=== PATIENT | male | born 1955 | race Caucasian/White ===

== ENCOUNTER 2019-11-14 17:08 | Inpatient (IN) | payer OTHER ==
[~2019-11-14] VITALS: Ht 175.3 cm; Wt 86.6 kg
[2019-11-14 17:08] VITALS: BP 131/79
[~2019-11-14 17:08] MED LIST: Mylanta II UD 30ml ORAL ONE; Omnipaque-300 100ml vial INJ PRN
--- NOTE | 2019-11-14 17:08 | NUR ---
ED Nurse Note: Pt brought in by [facility]26 from home due to abd pain with N/V/D since this morning. Noted abd distention with occasional hernia protrusion. Pt states his abdomen has been big for a while. AAO x4, follows commands with non labored breathing. No active vomitng upon arrival.
--- NOTE | 2019-11-14 17:15 | NUR ---
ED Nurse Note: Collected blood then sent to lab.
--- NOTE | 2019-11-14 17:19 | Emergency Room Report ---
History of Present Illness General Chief Complaint: Nausea, Vomiting, and Diarrhea Source: Patient, EMS Present Illness HPI 64 year old history of hypertension history of diabetes history of liver cirrhosis now cured presents with Nausea vomiting generalized abdominal pain that started today achy in nature, no aggravating relieving factors severity is moderate, constant started today patient was brought in by EMS for evaluation no fevers no chills no chest pain or shortness of breath Allergies: Coded Allergies: CHLORPROMAZINE (Unverified Allergy, Unknown, 11/14/19) COVID-19 Screening Contact w/high risk pt: No Recent Travel to affected area: No Experienced COVID-19 symptoms?: No Patient History Past Medical History: see triage record Reviewed Nursing Documentation: PMH: Agreed; PSxH: Agreed Nursing Documentation-PMH Past Medical History: No History, Except For Hx Cardiac Problems: No - h/o stroke and heartattack Hx Hypertension: Yes Hx COPD: Yes Hx Cerebrovascular Accident: Yes Review of Systems All Other Systems: negative except mentioned in HPI Physical Exam Vital Signs Date Time Temp Pulse Resp B/P (MAP) Pulse Ox O2 Delivery O2 Flow Rate FiO2 11/14/19 16:55 97.3 96 16 131/85 (100) 94 Room Air Sp02 EP Interpretation: reviewed, normal General Appearance: well appearing, no apparent distress, alert Head: normocephalic, atraumatic Eyes: bilateral eye PERRL, bilateral eye EOMI ENT: uvula midline, moist mucus membranes Neck: supple, thyroid normal, supple/symm/no masses Respiratory: lungs clear, no respiratory distress, no retraction, no accessory muscle use Cardiovascular #1: normal peripheral pulses, regular rate, rhythm, no edema, no gallop, no murmur Gastrointestinal: non tender, soft, no guarding, no rebound Musculoskeletal: normal inspection Neurologic: alert, oriented x3 Psychiatric: mood/affect normal Skin: no rash, warm/dry Medical Decision Making Diagnostic Impression: Primary Impression: Small bowel obstruction ER Course 64-year-old male presents with acute SBO, NG tube was inserted, differential diagnosis also include diverticulitis, appendicitis, Patient given pain control fluids patient will be admitted to [facility] Patient admitted to Dr. Turcios Laboratory Tests Test 11/14/19 17:15 White Blood Count 9.4 K/UL (4.8-10.8) Red Blood Count 4.77 M/UL (4.70-6.10) Hemoglobin 14.4 G/DL (14.2-18.0) Hematocrit 44.9 % (42.0-52.0) Mean Corpuscular Volume 94 FL (80-99) Mean Corpuscular Hemoglobin 30.1 PG (27.0-31.0) Mean Corpuscular Hemoglobin Concent 32.0 G/DL (32.0-36.0) Red Cell Distribution Width 12.9 % (11.6-14.8) Platelet Count 151 K/UL (150-450) Mean Platelet Volume 11.2 FL (6.5-10.1) H Neutrophils (%) (Auto) 80.1 % (45.0-75.0) H Lymphocytes (%) (Auto) 8.3 % (20.0-45.0) L Monocytes (%) (Auto) 10.7 % (1.0-10.0) H Eosinophils (%) (Auto) 0.1 % (0.0-3.0) Basophils (%) (Auto) 0.7 % (0.0-2.0) Urine Color Pending Urine Appearance Pending Urine pH Pending Urine Specific [place] Pending Urine Protein Pending Urine Glucose (UA) Pending Urine Ketones Pending Urine Blood Pending Urine Nitrite Pending Urine Bilirubin Pending Urine Urobilinogen Pending Urine Leukocyte Esterase Pending Sodium Level 136 MMOL/L (136-145) Potassium Level 3.7 MMOL/L (3.5-5.1) Chloride Level 99 MMOL/L (98-107) Carbon Dioxide Level 28 MMOL/L (21-32) Anion Gap 9 mmol/L (5-15) Blood Urea Nitrogen 21 mg/dL (7-18) H Creatinine 0.7 MG/DL (0.55-1.30) Estimated Glomerular Filtration Rate > 60 mL/min (>60) Glucose Level 114 MG/DL (74-106) H Calcium Level 9.3 MG/DL (8.5-10.1) Total Bilirubin 0.4 MG/DL (0.2-1.0) Aspartate Amino Transferase (AST) 18 U/L (15-37) Alanine Aminotransferase (ALT) 17 U/L (12-78) Alkaline Phosphatase 69 U/L (46-116) Troponin I 0.000 ng/mL (0.000-0.056) Total Protein 7.1 G/DL (6.4-8.2) Albumin 3.7 G/DL (3.4-5.0) Globulin 3.4 g/dL Albumin/Globulin Ratio 1.1 (1.0-2.7) Lipase 26 U/L (73-393) L Other X-Ray Diagnostic Results Other X-Ray Diagnostic Results : X-Ray ordered: KUB # of Views/Limited Vs Complete: 1 View Indication: Pain EP Interpretation: Yes Interpretation: other - NG tube well-seated in the stomach Impression: Other - NG tube well-seated in the stomach Electronically Signed by: Jesús Moncada MD CT/MRI/US Diagnostic Results CT/MRI/US Diagnostic Results : Impression Preliminary Findings Only See Final Report For Complete Findings CT ABDOMEN & PELVIS With Contrast: Prominence of the wall of the distal esophagus may represent esophagitis. Stomach is distended with ingested material, fluid, and gas. Dilated fluid and gas-filled small bowel loops with transition point in the right mid abdomen, concerning for small bowel obstruction. Small amount of ascites. Normal appendix. No hydronephrosis or obstructing stone. Fluid within a right inguinal hernia. Fat within a left inguinal hernia. Atherosclerotic changes of the vasculature. No aortic aneurysm or dissection. Mild prominence of the bladder wall is likely secondary to under distention. Please correlate with urinalysis if concerned for cystitis. Radiologist: Susy Blue M.D. Study ready at 18:36 and initial results transmitted at 18:51 Last Vital Signs Date Time Temp Pulse Resp B/P (MAP) Pulse Ox O2 Delivery O2 Flow Rate FiO2 11/14/19 16:55 97.3 96 16 131/85 (100) 94 Room Air Disposition: ADMITTED INPATIENT Condition: Stable Jesús Moncada MD Nov 14, 2019 17:19
[2019-11-14] MEDS ORDERED: Mylanta II UD 30ml ONE (17:29)
[2019-11-14 17:34] LABS: BASOPHILS % (AUTO) 0.7 % (0.0-2.0); EOSINOPHILS % (AUTO) 0.1 % (0.0-3.0); HEMATOCRIT 44.9 % (42.0-52.0); HEMOGLOBIN 14.4 G/DL (14.2-18.0); LYMPHOCYTES % (AUTO) 8.3 % (20.0-45.0); MEAN CORPUSCULAR VOLUME 94 FL (80-99); MONOCYTES % (AUTO) 10.7 % (1.0-10.0); NEUTROPHILS % (AUTO) 80.1 % (45.0-75.0); PLATELET COUNT 151 K/UL (150-450); RED BLOOD COUNT 4.77 M/UL (4.70-6.10); RED CELL DISTRIBUTION WIDTH 12.9 % (11.6-14.8); WHITE BLOOD COUNT 9.4 K/UL (4.8-10.8)
[2019-11-14 17:55] LABS: ANION GAP 9 mmol/L (5-15); BLOOD UREA NITROGEN 21 mg/dL (7-18); CALCIUM 9.3 MG/DL (8.5-10.1); CARBON DIOXIDE 28 MMOL/L (21-32); CHLORIDE 99 MMOL/L (98-107); CREATININE 0.7 MG/DL (0.55-1.30); POTASSIUM 3.7 MMOL/L (3.5-5.1); SODIUM 136 MMOL/L (136-145)
[2019-11-14 17:59] LABS: ALANINE AMINOTRANSFERASE 17 U/L (12-78); ALBUMIN 3.7 G/DL (3.4-5.0); ALBUMIN/GLOBULIN RATIO 1.1 (1.0-2.7); ALKALINE PHOSPHATASE 69 U/L (46-116); ASPARTATE AMINO TRANSFERASE 18 U/L (15-37); BILIRUBIN,TOTAL 0.4 MG/DL (0.2-1.0)
[2019-11-14] MEDS ORDERED: Omnipaque-300 100ml vial INJ PRN (18:00)
[2019-11-14] MEDS ORDERED: Mylanta II UD 30ml ORAL ONE (18:00)
--- NOTE | 2019-11-14 18:15 | NUR ---
ED Nurse Note: Pt taken to CT via wheelchair in stable condition.
--- NOTE | 2019-11-14 19:11 | NUR ---
HAND-OFF: Report given to Salena LEON.
[2019-11-14 19:15] VITALS: BP 141/71
--- NOTE | 2019-11-14 19:15 | NUR ---
ED Nurse Note: Report received from EDWARD Barajas. Pt is aaox4, no acute distress noted. Will carry out order for NG tube placement. VSS.
--- NOTE | 2019-11-14 19:30 | NUR ---
ED Nurse Note: NG tube placed and Xray obtained to confirm placement and confirmed with ERMD. NG tube placed in R nare and is at 63cm. Low continuous suction inititated. Pt has no complaints of pain and vital signs are stable.
--- NOTE | 2019-11-14 20:00 | NUR ---
ED Nurse Note: Pt is able to able to get out of bed and use bedside commode with assistance. Loose stool noted with bowel movement at this time.
--- NOTE | 2019-11-14 20:18 | Diagnostic Imaging Report ---
Indication: NG tube placement. Abdominal pain. Technique: XRAY Abdomen 1v Comparison: CT of the abdomen and pelvis from earlier the same day Findings: NG tube in the stomach. There is distention of the stomach and distention of multiple small bowel loops consistent with the small bowel obstruction seen on prior CT. Contrast is noted within the renal collecting systems related to prior IV contrast administration. There are degenerative changes in the spine. Impression: Satisfactory positioning of NG tube.
--- NOTE | 2019-11-14 21:00 | NUR ---
ED Nurse Note: Report given to EDWARD Castro.
--- NOTE | 2019-11-14 21:05 | NUR ---
ED Nurse Note: Pt is stable for transport to unit at this time. Pt taken to unit via gurney by tech. Pt NG tube clamped for transport and RN informed of ERMD order to have it on low continuous suction, no complications noted. Pt is aaox4, no acute distress noted. Pt belongings sent with pt. VSS.
[2019-11-14 21:30] VITALS: BP 133/71
[2019-11-14] MEDS ORDERED: DiphenhydrAMINE 25mg Tab ORAL PRN (22:00)
[2019-11-14] MEDS ORDERED: Metoclopramide 10mg/2ml Inj IVP PRN (22:00)
[2019-11-14] MEDS ORDERED: Miralax 17gm pkt ORAL PRN (22:00)
[2019-11-14] MEDS ORDERED: Nitroglycerin Subl 0.4mg tab SL PRN (22:00)
[2019-11-14] MEDS: D5 1/2NS 1,000 ML IV SCH (22:12)
[2019-11-15] VITALS: BP 134/74
[2019-11-15 04:00] VITALS: BP 128/73
[2019-11-15 06:22] LABS: BASOPHILS % (AUTO) 0.5 % (0.0-2.0); EOSINOPHILS % (AUTO) 0.6 % (0.0-3.0); HEMATOCRIT 38.4 % (42.0-52.0); HEMOGLOBIN 13.7 G/DL (14.2-18.0); LYMPHOCYTES % (AUTO) 17.4 % (20.0-45.0); MEAN CORPUSCULAR VOLUME 90 FL (80-99); MONOCYTES % (AUTO) 16.1 % (1.0-10.0); NEUTROPHILS % (AUTO) 65.4 % (45.0-75.0); PLATELET COUNT 124 K/UL (150-450); RED BLOOD COUNT 4.27 M/UL (4.70-6.10); RED CELL DISTRIBUTION WIDTH 11.9 % (11.6-14.8); WHITE BLOOD COUNT 6.7 K/UL (4.8-10.8)
--- NOTE | 2019-11-15 06:28 | NUR ---
NURSE NOTES: PATIENT ALERT, ORIENTED. NPO EXCEPT ICE CHIPS/MEDS. DENIES PAIN. NO S/S DISTRESS NOTED. PATIENT HAS NG TUBE ON LOW INTERMITTENT SUCTIONS ORDERED. SKIN INTACT. HAVING DIARRHEA, STOOL COLLECTED. REVIEWED BELONGINGS, PATIENT SIGNED REFUSAL. CAN REPOSITION SELF. BED IN LOWEST POSITION, CALL LIGHT WITHIN REACH, BED ALARM ON, WILL CONTINUE TO MONITOR. UNABLE TO DO MED RECON PATIENT DOESN'T HAVE HIS MED LIST AND DOES NOT RECALL THEM AND PER PATIENT HE WILL CALL HIS LIVING FACILITY TO GET HIS MED LIST .
[2019-11-15 06:44] LABS: ALANINE AMINOTRANSFERASE 12 U/L (12-78); ALBUMIN 2.9 G/DL (3.4-5.0); ALBUMIN/GLOBULIN RATIO 0.9 (1.0-2.7); ALKALINE PHOSPHATASE 53 U/L (46-116); AMYLASE 13 U/L (25-115); ANION GAP 7 mmol/L (5-15); ASPARTATE AMINO TRANSFERASE 12 U/L (15-37); BILIRUBIN,TOTAL 0.4 MG/DL (0.2-1.0); BLOOD UREA NITROGEN 18 mg/dL (7-18); CALCIUM 8.5 MG/DL (8.5-10.1); CARBON DIOXIDE 28 MMOL/L (21-32); CHLORIDE 104 MMOL/L (98-107); CREATININE 0.7 MG/DL (0.55-1.30); POTASSIUM 3.9 MMOL/L (3.5-5.1); SODIUM 138 MMOL/L (136-145)
--- NOTE | 2019-11-15 06:44 | NUR ---
NURSE NOTES: VITALS STABLE, AFEBRILE. NO NAUSEA/VOMITING. NO FALLS/INJURY.
--- NOTE | 2019-11-15 07:08 | NUR ---
HAND-OFF: Report given to DAVID MICHAELS RN. .
--- NOTE | 2019-11-15 07:39 | NUR ---
NURSE NOTES: received report from EDWARD Smith. patient in bed, A&Ox4. verbally responsive. no respiratory distress noted. no pain at this time. NPO. NG tube with suction. brown drainage noted. IV on RAC20g running d51/2ns@75/hr. IV site intact. US abd will be done this morning. bed in the lowest position and locked. call light within reach. will continue to provide plan of care.
--- NOTE | 2019-11-15 07:59 | NUR ---
CASE MANAGEMENT: INITIAL REVIEW 11/14/2019 64 YO M DIANNE FROM HOME CC: N/V/D PMHx: CVA. HTN. COPD. SI:SBO. T 97.3 HR 96 RR 16 B/P 131/85 SATS 94% ON RA LABS: BUN 21 GLU 114 LIPASE 26 UA: PENDING IS: ZOFRAN IV X2 PEPCID IV X1 NS BOLUS X1 MYLANTA PO X1 PATIENT ADMITTED TO MED/SURG 11/14/2019 @ 2000 DCP: HOME PLAN OF CARE: us abd ngt CONCURRENT REVIEW FOR 11/15/2019 SI: SBO T 97.9 HR 75 RR 18 B/P 128/73 SATS 96% ON RA LABS: GLU 126 AST 12 LIPASE 26 AMYLASE 13 IS:DEXTROSE IV @ 75 ML/HR PROTONIX IV QD MED/SURG PLAN OF CARE: CONTINUE NGT TO LIS Addendum: 11/15/19 at 0933 by Meghan Flores CM INTERQUAL MET
[2019-11-15 08:00] VITALS: BP 123/67
[2019-11-15] MEDS: Heparin 5000 units/ml inj SUBQ SCH ×2 (08:18→21:00)
[2019-11-15] MEDS: Pantoprazole Inj IV SCH (08:18)
[2019-11-15 12:00] VITALS: BP 129/62
[2019-11-15] MEDS: D5 1/2NS 1,000 ML IV SCH (12:26)
--- NOTE | 2019-11-15 13:22 | Consultation ---
History of Present Illness General Date patient seen: Nov 15, 2019 Reason for Hospitalization: Nausea, Vomiting, and Diarrhea Present Illness HPI This is a pleasant 64 year male presented to [facility] ED c/o abdominal pain, nausea, emesis for 1-2 days. states was in care facility when pain began then had nausea and emesis. pain generalized abdominal pain. no fevers. labs as below. CT with possible sbo. surgery called to evaluate. ng tube placed. patient seen and examined. states cannot recall last flatus. had some loose discharge from anus since but unsure if diarrhea. prior abd surgery but unsure what. states it was a long time ago. poor historian Allergies: Coded Allergies: CHLORPROMAZINE (Unverified Allergy, Unknown, 11/14/19) COVID-19 Screening Contact w/high risk pt: No Recent Travel to affected area: No Experienced COVID-19 symptoms?: No Patient History History Provided By: Patient, Medical Record, PMD Healthcare decision maker Resuscitation status Advanced Directive on File Past Medical/Surgical History Past Medical/Surgical History: (1) Small bowel obstruction (2) Nausea, vomiting, and diarrhea Review of Systems Review of Symptoms General ROS: no weight loss or fever Psychological ROS: no depression or mood changes, no memory loss Ophthalmic ROS: no visual changes or eye irritation ENT ROS: no nasal congestion, hearing loss, dizziness Allergy and Immunology ROS: no allergic symptoms or urticaria Hematological and Lymphatic ROS: no swollen glands, unusual bleeding or bruising Endocrine ROS: no polyuria, polydipsia, weight changes, temperature intolerance Respiratory ROS: no cough, shortness of breath, or wheezing Cardiovascular ROS: no chest pain or dyspnea on exertion Gastrointestinal ROS: abdominal pain, no bright red blood in stool. Musculoskeletal ROS: no myalgias or arthralgias Neurological ROS: no TIA or stroke symptoms Dermatological ROS: no new or changing skin lesions, rashes or pruritis Physical Exam Physical Exam General appearance: alert, cooperative, no distress, appears stated age Head: Normocephalic, without obvious abnormality, atraumatic Eyes: conjunctivae/corneas clear. PERRL, EOM's intact. Fundi benign Throat: Lips, mucosa, and tongue normal. Teeth and gums normal Neck: supple, symmetrical, trachea midline, no adenopathy, thyroid: not enlarged, symmetric, no tenderness/mass/nodules, no carotid bruit and no JVD Lungs: clear to auscultation bilaterally Heart: regular rate and rhythm, S1, S2 normal, no murmur, click, rub or gallop Abdomen: soft, non-tender. Bowel sounds decrease, large midline ventral incisional hernia. No masses, no organomegaly Extremities: extremities normal, atraumatic, no cyanosis or edema Pulses: 2+ and symmetric Skin: Skin color, texture, turgor normal. No rashes or lesions Neurologic: Grossly normal Last 24 Hour Vital Signs Date Time Temp Pulse Resp B/P (MAP) Pulse Ox O2 Delivery O2 Flow Rate FiO2 11/15/19 12:00 97.8 64 20 129/62 (84) 96 11/15/19 09:00 Room Air 11/15/19 08:00 97.4 60 18 123/67 (85) 96 11/15/19 04:00 97.9 75 18 128/73 (91) 96 11/15/19 00:00 98.3 73 18 134/74 (94) 98 11/14/19 21:47 Room Air 11/14/19 21:30 98.1 79 18 133/71 (91) 98 11/14/19 21:05 98.0 86 17 140/77 100 Room Air 11/14/19 19:15 97.3 85 23 141/71 100 Room Air 11/14/19 17:08 97.3 83 14 131/79 96 Room Air 11/14/19 16:55 97.3 96 16 131/85 (100) 94 Room Air Intake and Output 11/14/19 11/15/19 19:00 07:00 Intake Total 1000 ml 600 ml Output Total 350 ml Balance 1000 ml 250 ml Intake IV Total 1000 ml 600 ml Output Gastric Drainage Total 150 ml Other 200 ml # Voids 1 # Bowel Movements 6 Laboratory Tests Test 11/14/19 17:15 11/15/19 05:20 White Blood Count 9.4 K/UL (4.8-10.8) 6.7 K/UL (4.8-10.8) Red Blood Count 4.77 M/UL (4.70-6.10) 4.27 M/UL (4.70-6.10) L Hemoglobin 14.4 G/DL (14.2-18.0) 13.7 G/DL (14.2-18.0) L Hematocrit 44.9 % (42.0-52.0) 38.4 % (42.0-52.0) L Mean Corpuscular Volume 94 FL (80-99) 90 FL (80-99) Mean Corpuscular Hemoglobin 30.1 PG (27.0-31.0) 32.0 PG (27.0-31.0) H Mean Corpuscular Hemoglobin Concent 32.0 G/DL (32.0-36.0) 35.5 G/DL (32.0-36.0) Red Cell Distribution Width 12.9 % (11.6-14.8) 11.9 % (11.6-14.8) Platelet Count 151 K/UL (150-450) 124 K/UL (150-450) L Mean Platelet Volume 11.2 FL (6.5-10.1) H 8.6 FL (6.5-10.1) Neutrophils (%) (Auto) 80.1 % (45.0-75.0) H 65.4 % (45.0-75.0) Lymphocytes (%) (Auto) 8.3 % (20.0-45.0) L 17.4 % (20.0-45.0) L Monocytes (%) (Auto) 10.7 % (1.0-10.0) H 16.1 % (1.0-10.0) H Eosinophils (%) (Auto) 0.1 % (0.0-3.0) 0.6 % (0.0-3.0) Basophils (%) (Auto) 0.7 % (0.0-2.0) 0.5 % (0.0-2.0) Urine Color Pending Urine Appearance Pending Urine pH Pending Urine Specific [place] Pending Urine Protein Pending Urine Glucose (UA) Pending Urine Ketones Pending Urine Blood Pending Urine Nitrite Pending Urine Bilirubin Pending Urine Urobilinogen Pending Urine Leukocyte Esterase Pending Sodium Level 136 MMOL/L (136-145) 138 MMOL/L (136-145) Potassium Level 3.7 MMOL/L (3.5-5.1) 3.9 MMOL/L (3.5-5.1) Chloride Level 99 MMOL/L (98-107) 104 MMOL/L (98-107) Carbon Dioxide Level 28 MMOL/L (21-32) 28 MMOL/L (21-32) Anion Gap 9 mmol/L (5-15) 7 mmol/L (5-15) Blood Urea Nitrogen 21 mg/dL (7-18) H 18 mg/dL (7-18) Creatinine 0.7 MG/DL (0.55-1.30) 0.7 MG/DL (0.55-1.30) Estimat Glomerular Filtration Rate > 60 mL/min (>60) > 60 mL/min (>60) Glucose Level 114 MG/DL (74-106) H 126 MG/DL (74-106) H Calcium Level 9.3 MG/DL (8.5-10.1) 8.5 MG/DL (8.5-10.1) Total Bilirubin 0.4 MG/DL (0.2-1.0) 0.4 MG/DL (0.2-1.0) Aspartate Amino Transf (AST/SGOT) 18 U/L (15-37) 12 U/L (15-37) L Alanine Aminotransferase (ALT/SGPT) 17 U/L (12-78) 12 U/L (12-78) Alkaline Phosphatase 69 U/L (46-116) 53 U/L (46-116) Troponin I 0.000 ng/mL (0.000-0.056) Total Protein 7.1 G/DL (6.4-8.2) 6.1 G/DL (6.4-8.2) L Albumin 3.7 G/DL (3.4-5.0) 2.9 G/DL (3.4-5.0) L Globulin 3.4 g/dL 3.2 g/dL Albumin/Globulin Ratio 1.1 (1.0-2.7) 0.9 (1.0-2.7) L Lipase 26 U/L (73-393) L 26 U/L (73-393) L Activated Partial Thromboplast Time 27 SEC (23-33) Amylase Level 13 U/L (25-115) L Height (Feet): 5 Height (Inches): 9.00 Weight (Pounds): 195 Medications Current Medications Medications (Trade) Dose Ordered Sig/Hortensia Route PRN Reason Start Time Stop Time Status Last Admin Dose Admin Acetaminophen (Tylenol) 650 mg Q4H PRN ORAL fever 11/14/19 22:00 12/14/19 21:59 Dextrose (Dextrose 50%) 25 ml Q30M PRN IV Hypoglycemia 11/14/19 22:00 02/12/20 21:59 Dextrose (Dextrose 50%) 50 ml Q30M PRN IV Hypoglycemia 11/14/19 22:00 02/12/20 21:59 Dextrose/Sodium Chloride 1,000 ml @ 75 mls/hr [id number] IV 11/14/19 21:57 12/14/19 21:56 11/15/19 12:26 Diphenhydramine HCl (Benadryl) 25 mg Q6H PRN ORAL Itching/Pruritis 11/14/19 22:00 12/14/19 21:59 Heparin Sodium (Porcine) (Heparin 5000 units/ml) 5,000 units EVERY 12 HOURS SUBQ 11/15/19 09:00 12/30/19 08:59 Iohexol (OMNIPAQUE-300 100ml) 100 ml NOW PRN INJ Radiology Procedure 11/14/19 18:00 11/16/19 17:59 Metoclopramide HCl (Reglan) 10 mg EVERY 6 HOURS PRN IVP servere nauasea 11/14/19 22:00 12/14/19 21:59 Nitroglycerin (Ntg) 0.4 mg Q5M X 3 DOSES PRN SL Prn Chest Pain 11/14/19 22:00 12/14/19 21:59 Ondansetron HCl (Zofran) 4 mg Q6H PRN IVP Nausea & Vomiting 11/14/19 22:00 12/14/19 21:59 Pantoprazole (Protonix) 40 mg DAILY IV 11/15/19 09:00 12/15/19 08:59 11/15/19 08:18 Polyethylene Glycol (Miralax) 17 gm HSPRN PRN ORAL Constipation 11/14/19 22:00 12/14/19 21:59 Temazepam (Restoril) 15 mg HSPRN PRN ORAL Insomnia 11/14/19 22:30 11/21/19 22:29 Assessment/Plan Problem List: (1) Small bowel obstruction Assessment & Plan: SBO likely from adhesions as large prior midline midline large incisional ventral hernia reducible no n/v/f/c currently no flatus yet no bowel function returned yet ng in place. bilious gastric output non tender abd with decrease bowel sounds will attempt non operative management. if improves and returns bowel function with bowel reset and decompression npo iv fluids ng tube to low intermittent suction serial abd exam if not improved soon will need to explore discussed with patient in length at bedside thank you will follow with recs Prominence of the wall of the distal esophagus may represent esophagitis. Stomach is distended with ingested material, fluid, and gas. Dilated fluid and gas-filled small bowel loops with transition point in the right mid abdomen, concerning for small bowel obstruction. Small amount of ascites. Normal appendix. No hydronephrosis or obstructing stone. Fluid within a right inguinal hernia. Fat within a left inguinal hernia. Atherosclerotic changes of the vasculature. No aortic aneurysm or dissection. Mild prominence of the bladder wall is likely secondary to under distention. Please correlate with urinalysis if concerned for cystitis. ICD Codes: K56.609 - Unspecified intestinal obstruction, unspecified as to partial versus complete obstruction SNOMED: [id number] Alonso Ivan Nov 15, 2019 13:22
--- NOTE | 2019-11-15 13:28 | Consultation ---
History of Present Illness General Date patient seen: Nov 15, 2019 Chief Complaint: Nausea, Vomiting, and Diarrhea Present Illness HPI 64 year old history of hypertension, diabetes, presented to ER with CC of Nausea, vomiting generalized abdominal pain for one day. patient was brought in by EMS for evaluation. Pt was found to have an ileus and got an NG tube with suction in ER which helped with the symptoms. Allergies: Coded Allergies: CHLORPROMAZINE (Unverified Allergy, Unknown, 11/14/19) Patient History Healthcare decision maker Resuscitation status Advanced Directive on File Past Medical/Surgical History Past Medical/Surgical History: (1) History of abdominal surgery Review of Systems All Other Systems: negative except mentioned in HPI Physical Exam General Appearance: WD/WN Lines, tubes and drains: peripheral HEENT: normocephalic, anicteric Neck: non-tender, normal alignment Respiratory/Chest: chest wall non-tender, normal breath sounds Breasts: no masses Cardiovascular/Chest: normal rate Abdomen: normal bowel sounds Genitourinary/Rectal: normal rectal exam Extremities: normal range of motion Last 24 Hour Vital Signs Date Time Temp Pulse Resp B/P (MAP) Pulse Ox O2 Delivery O2 Flow Rate FiO2 11/15/19 12:00 97.8 64 20 129/62 (84) 96 11/15/19 09:00 Room Air 11/15/19 08:00 97.4 60 18 123/67 (85) 96 11/15/19 04:00 97.9 75 18 128/73 (91) 96 11/15/19 00:00 98.3 73 18 134/74 (94) 98 11/14/19 21:47 Room Air 11/14/19 21:30 98.1 79 18 133/71 (91) 98 11/14/19 21:05 98.0 86 17 140/77 100 Room Air 11/14/19 19:15 97.3 85 23 141/71 100 Room Air 11/14/19 17:08 97.3 83 14 131/79 96 Room Air 11/14/19 16:55 97.3 96 16 131/85 (100) 94 Room Air Intake and Output 11/14/19 11/15/19 19:00 07:00 Intake Total 1000 ml 600 ml Output Total 350 ml Balance 1000 ml 250 ml Intake IV Total 1000 ml 600 ml Output Gastric Drainage Total 150 ml Other 200 ml # Voids 1 # Bowel Movements 6 Laboratory Tests Test 11/14/19 17:15 11/15/19 05:20 White Blood Count 9.4 K/UL (4.8-10.8) 6.7 K/UL (4.8-10.8) Red Blood Count 4.77 M/UL (4.70-6.10) 4.27 M/UL (4.70-6.10) L Hemoglobin 14.4 G/DL (14.2-18.0) 13.7 G/DL (14.2-18.0) L Hematocrit 44.9 % (42.0-52.0) 38.4 % (42.0-52.0) L Mean Corpuscular Volume 94 FL (80-99) 90 FL (80-99) Mean Corpuscular Hemoglobin 30.1 PG (27.0-31.0) 32.0 PG (27.0-31.0) H Mean Corpuscular Hemoglobin Concent 32.0 G/DL (32.0-36.0) 35.5 G/DL (32.0-36.0) Red Cell Distribution Width 12.9 % (11.6-14.8) 11.9 % (11.6-14.8) Platelet Count 151 K/UL (150-450) 124 K/UL (150-450) L Mean Platelet Volume 11.2 FL (6.5-10.1) H 8.6 FL (6.5-10.1) Neutrophils (%) (Auto) 80.1 % (45.0-75.0) H 65.4 % (45.0-75.0) Lymphocytes (%) (Auto) 8.3 % (20.0-45.0) L 17.4 % (20.0-45.0) L Monocytes (%) (Auto) 10.7 % (1.0-10.0) H 16.1 % (1.0-10.0) H Eosinophils (%) (Auto) 0.1 % (0.0-3.0) 0.6 % (0.0-3.0) Basophils (%) (Auto) 0.7 % (0.0-2.0) 0.5 % (0.0-2.0) Urine Color Pending Urine Appearance Pending Urine pH Pending Urine Specific [place] Pending Urine Protein Pending Urine Glucose (UA) Pending Urine Ketones Pending Urine Blood Pending Urine Nitrite Pending Urine Bilirubin Pending Urine Urobilinogen Pending Urine Leukocyte Esterase Pending Sodium Level 136 MMOL/L (136-145) 138 MMOL/L (136-145) Potassium Level 3.7 MMOL/L (3.5-5.1) 3.9 MMOL/L (3.5-5.1) Chloride Level 99 MMOL/L (98-107) 104 MMOL/L (98-107) Carbon Dioxide Level 28 MMOL/L (21-32) 28 MMOL/L (21-32) Anion Gap 9 mmol/L (5-15) 7 mmol/L (5-15) Blood Urea Nitrogen 21 mg/dL (7-18) H 18 mg/dL (7-18) Creatinine 0.7 MG/DL (0.55-1.30) 0.7 MG/DL (0.55-1.30) Estimat Glomerular Filtration Rate > 60 mL/min (>60) > 60 mL/min (>60) Glucose Level 114 MG/DL (74-106) H 126 MG/DL (74-106) H Calcium Level 9.3 MG/DL (8.5-10.1) 8.5 MG/DL (8.5-10.1) Total Bilirubin 0.4 MG/DL (0.2-1.0) 0.4 MG/DL (0.2-1.0) Aspartate Amino Transf (AST/SGOT) 18 U/L (15-37) 12 U/L (15-37) L Alanine Aminotransferase (ALT/SGPT) 17 U/L (12-78) 12 U/L (12-78) Alkaline Phosphatase 69 U/L (46-116) 53 U/L (46-116) Troponin I 0.000 ng/mL (0.000-0.056) Total Protein 7.1 G/DL (6.4-8.2) 6.1 G/DL (6.4-8.2) L Albumin 3.7 G/DL (3.4-5.0) 2.9 G/DL (3.4-5.0) L Globulin 3.4 g/dL 3.2 g/dL Albumin/Globulin Ratio 1.1 (1.0-2.7) 0.9 (1.0-2.7) L Lipase 26 U/L (73-393) L 26 U/L (73-393) L Activated Partial Thromboplast Time 27 SEC (23-33) Amylase Level 13 U/L (25-115) L Height (Feet): 5 Height (Inches): 9.00 Weight (Pounds): 195 Medications Current Medications Medications (Trade) Dose Ordered Sig/Hortensia Route PRN Reason Start Time Stop Time Status Last Admin Dose Admin Acetaminophen (Tylenol) 650 mg Q4H PRN ORAL fever 11/14/19 22:00 12/14/19 21:59 Dextrose (Dextrose 50%) 25 ml Q30M PRN IV Hypoglycemia 11/14/19 22:00 02/12/20 21:59 Dextrose (Dextrose 50%) 50 ml Q30M PRN IV Hypoglycemia 11/14/19 22:00 02/12/20 21:59 Dextrose/Sodium Chloride 1,000 ml @ 75 mls/hr [id number] IV 11/14/19 21:57 12/14/19 21:56 11/15/19 12:26 Diphenhydramine HCl (Benadryl) 25 mg Q6H PRN ORAL Itching/Pruritis 11/14/19 22:00 12/14/19 21:59 Heparin Sodium (Porcine) (Heparin 5000 units/ml) 5,000 units EVERY 12 HOURS SUBQ 11/15/19 09:00 12/30/19 08:59 Iohexol (OMNIPAQUE-300 100ml) 100 ml NOW PRN INJ Radiology Procedure 11/14/19 18:00 11/16/19 17:59 Metoclopramide HCl (Reglan) 10 mg EVERY 6 HOURS PRN IVP servere nauasea 11/14/19 22:00 12/14/19 21:59 Nitroglycerin (Ntg) 0.4 mg Q5M X 3 DOSES PRN SL Prn Chest Pain 11/14/19 22:00 12/14/19 21:59 Ondansetron HCl (Zofran) 4 mg Q6H PRN IVP Nausea & Vomiting 11/14/19 22:00 12/14/19 21:59 Pantoprazole (Protonix) 40 mg DAILY IV 11/15/19 09:00 12/15/19 08:59 11/15/19 08:18 Polyethylene Glycol (Miralax) 17 gm HSPRN PRN ORAL Constipation 11/14/19 22:00 12/14/19 21:59 Temazepam (Restoril) 15 mg HSPRN PRN ORAL Insomnia 11/14/19 22:30 11/21/19 22:29 Assessment/Plan Problem List: (1) Small bowel obstruction ICD Codes: K56.609 - Unspecified intestinal obstruction, unspecified as to partial versus complete obstruction SNOMED: 470542629 (2) Nausea, vomiting, and diarrhea ICD Codes: R11.2 - Nausea with vomiting, unspecified; R19.7 - Diarrhea, unspecified SNOMED: 9094413 (3) History of abdominal surgery ICD Codes: Z98.890 - Other specified postprocedural states SNOMED: 746964046, 268555404 Assessment/Plan: NPO IV fluids surigical consult check electrolytes symptomatic treatment Zacarias Garcia MD Nov 15, 2019 13:28
--- NOTE | 2019-11-15 13:29 | Diagnostic Imaging Report ---
Indication: Abdominal pain Technique: CT of the abdomen and pelvis utilizing automated exposure control with intravenous contrast. Venous scanning performed. Axial, sagittal and coronal reformats presented. CT dose: Total DLP 535 mGycm; CTDI vol 9.8 mGy Comparison: None Findings: Dependent atelectasis noted in the lung bases. There is a 4 mm nodule in the middle lobe (series 6 image #6). Partially imaged heart normal in size. No pericardial effusion. No focal hepatic mass lesion identified on this single phase exam. The portal veins appear patent. There is cholelithiasis. No CT evidence to suggest acute cholecystitis. No biliary ductal dilatation. Spleen and adrenal glands grossly unremarkable. Pancreas is atrophic, greater than expected for age. No peripancreatic inflammatory changes or fluid collections. Kidneys enhance symmetrically. No urinary tract stone, hydronephrosis or perinephric stranding. Bladder is decompressed, precluding reliable evaluation. Prostate is borderline enlarged. There is thickening of the wall of the distal esophagus which may be related to esophagitis. There is abnormal distention of multiple small bowel loops probably small bowel obstruction. There is a suspected transition point in the right mid abdomen. There is some swelling in the mesentery is well and the possibility of a internal hernia is not excluded. There is mild ascites, including fluid tracking into a right inguinal hernia. No evidence of free intraperitoneal air at this time. No appreciable pneumatosis intestinalis or portal venous gas. There is a small fat-containing left inguinal hernia. Abdominal aorta is normal in caliber with overall mild vascular calcification. There are degenerative changes in the spine. There is chronic appearing deformity of the right greater trochanter of the femur. No definite acute fracture or definite. IMPRESSION: * Small bowel obstruction with suspected transition point in the right mid abdomen. Some swirling is also noted within the mesentery and the possibility of internal hernia not excluded. * Mild ascites noted. No free intraperitoneal air, pneumatosis intestinalis or portal venous gas noted at this time. * Thickening of the wall the distal esophagus which may related to esophagitis. Follow-up endoscopy recommended. * Fluid within a small right inguinal hernia. Small fat-containing left inguinal hernia. * Bladder is decompressed, limiting reliable evaluation. Consider further evaluation with urinalysis. * Chronic appearing deformity of the greater trochanter of the right femur. * Atherosclerotic disease. * 4 mm nodule in the right middle lobe. The CT scanner at [facility] is accredited by the [employer] and the scans are performed using protocols designed to limit radiation exposure to as low as reasonably achievable to attain images of sufficient resolution adequate for diagnostic evaluation.
--- NOTE | 2019-11-15 14:43 | Diagnostic Imaging Report ---
Indication: Abdominal pain, nausea and vomiting Technique: Multiplanar duplex and color Doppler scanning of the abdomen Comparison: Correlation made to concurrent CT of the abdomen Findings: Pancreas is obscured by overlying bowel gas. Equivocal subtle surface nodularity of the liver which, if real, may suggest early cirrhotic change. No focal hepatic mass lesion identified sonographically. Imaged hepatic veins are patent. Main portal vein is patent with normal direction of flow. The right lobe liver is borderline enlarged measuring 20 cm in length. There is cholelithiasis. No sonographic evidence to suggest acute cholecystitis. No gallbladder wall thickening or pericholecystic fluid. Sonographic Caruso sign reported as negative. No intrahepatic or extra hepatic biliary ductal dilatation. Common bile duct measures 4.2 mm. Kidneys demonstrate normal echogenicity. There is no hydronephrosis or sonographically appreciable renal stone. Spleen is borderline enlarged measuring 13 cm in length. Imaged portions of the abdominal aorta are normal in caliber with atherosclerotic calcifications. Trace ascites is noted. IMPRESSION: Cholelithiasis without sonographic evidence to suggest acute cholecystitis. Sonographic Caruso sign reported as negative. * Equivocal subtle surface nodularity of the liver which, if real, may suggest early cirrhotic change. * Borderline hepatosplenomegaly. * Trace ascites.
--- NOTE | 2019-11-15 15:15 | NUR ---
NURSE NOTES: seen by Dr. Turcios. encourage the patent to ambulate as tolerated.
--- NOTE | 2019-11-15 15:37 | NUR ---
NURSE NOTES: assisted patient to ambulate hallway. patient was tolerated well. no respiratory distress noted. no pain at this time.
[2019-11-15 16:00] VITALS: BP 124/66
--- NOTE | 2019-11-15 19:39 | NUR ---
HAND-OFF: Report given to EDWARD Ward.
--- NOTE | 2019-11-15 19:41 | NUR ---
NURSE NOTES: Received Report from EDWARD Ku, pt a/ox4, breaths even regular and unlabored at RA, pt denies any pain. Pt has an NG tube to intermittent suction, denies any N/V . Pt has Rt AC 20G with i.v fluids running , patent and asymptomatic , call light with in reach and bed in low locked position. will continue to monitor
[2019-11-15 20:00] VITALS: BP 131/71
--- NOTE | 2019-11-15 22:00 | NUR ---
NURSE NOTES: Assisted to ambulate around the unit 3 times, pt tolerated activity well, no s/s of respiratory distress during ambulation,pt denies any nausea, will continue to monitor
--- NOTE | 2019-11-15 22:22 | History & Physical ---
History and Physical History & Physicial Ji Turcios MD Nov 15, 2019 22:22
[2019-11-16] VITALS: BP 125/61
[2019-11-16] MEDS: D5 1/2NS 1,000 ML IV SCH ×2 (01:07→16:05)
--- NOTE | 2019-11-16 01:45 | History and Physical Report ---
DATE OF ADMISSION: 11/14/2019 CHIEF COMPLAINT: Abdominal pain, nausea, and vomiting. HISTORY OF PRESENT ILLNESS: This is a 64-year-old gentleman with past medical history significant for hypertension, diabetes type 2, history of stroke x6 with a prior history of right-sided weakness, dyslipidemia, coronary artery disease, myocardial infarction x5, who usually receives his medical care at [facility] who presented to the emergency department complaining about abdominal pain associated with nausea, vomiting over the past 24 hours. The patient stated that his pain got progressively worsening yesterday. No fever or chills. No sore throat. No bloody emesis. The patient was brought into the emergency department via EMS, was found to have ileus. NG tube was placed in to intermittent suctioning patient. Subsequently, the patient was admitted to the hospital with abdominal pain, most likely secondary to small bowel obstruction. PAST MEDICAL HISTORY AND PAST SURGICAL HISTORY: As above, history of coronary artery disease, myocardial infarction x5, history of CVA with right-sided weakness, dyslipidemia, hypertension, diabetes type 2, history of mid abdominal surgery in the past with unknown etiology. MEDICATIONS AT HOME: Please refer to medication reconciliation. ALLERGIES: . SOCIAL HISTORY: The patient denies any smoking, alcohol, or drugs. He stated he is an ex-smoker, quit about 9 months ago. Smoked 45 years. He used to drink, but quit about 18 years ago. 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 FAMILY HISTORY: Father in early age of 58 with coronary artery disease. Mother in the 70s with fall with intracranial bleeding. REVIEW OF SYSTEMS: Mostly as above. Denies any dysuria, frequency, or hematuria. Denies any hemoptysis or hematochezia. Denies any bright red blood per rectum. PHYSICAL EXAMINATION: VITAL SIGNS: On admission, temperature 97.3, pulse of 96, respirations 16, and blood pressure 131/85. GENERAL: The patient is awake, responsive, in no acute distress. HEAD AND NECK: Pupils are equal and reactive to light. Extraocular movements intact. Neck was supple. No JVD. NG tube was noted to intermittent suctioning. LUNGS: Good air entry. No wheezing or rales. HEART: S1, S2. Regular rhythm. No murmur or gallops. ABDOMEN: Soft, nondistended, mildly obese. Ventral hernia was noted in the mid abdomen area over the surgical incision scar area. EXTREMITIES: No cyanosis, clubbing, or edema. NEUROLOGIC: Cranial nerves II through XII grossly intact. Motor is 5/5 in all extremities. The patient is moving all the extremities spontaneously. RECTAL/GENITOURINARY: Refused and deferred. PSYCHIATRIC: Mood and affect are intact. LABORATORY AND DIAGNOSTIC DATA: On admission WBC of 9.4, hemoglobin of 14, hematocrit 44, platelets 151. Sodium 136, potassium 3.7, chloride 99, bicarbonate 28, BUN 21, creatinine 0.7, glucose is 114, calcium is 9.3. Total bilirubin of 0.4, AST of 18, and ALT of 17. Troponin is 0.00. Lipase is 26. PTT of 27. Urinalysis still pending. The patient had a CT of the abdomen and pelvic done, noted the patient has a small bowel obstruction with suspected transition point in the right mid abdomen and some scrolling is also noted within the mesentery and possibility of internal hernia not excluded. Mild ascites noted. No free intraperitoneal air, and pneumatosis intestinalis or portal vein gas noted at this time. Thickening of the wall at the distal esophagus, which may be related to esophagitis. Fluid within the small right inguinal hernia. Small fat containing left inguinal hernia. Bladder is decompressed, limited reliable evaluation. Chronic-appearing deformity of the greater trochanter of the right femur. Atherosclerotic disease, 4 mm nodule in the right middle lung. The patient's abdominal x-ray confirmed the NG tube in the right position. ASSESSMENT: 1. Abdominal pain, most likely secondary to small bowel obstruction. 2. Dehydration. 3. Nausea, vomiting, and diarrhea. 4. Prior history of abdominal surgery. 5. Hypertension. 6. Coronary artery disease with prior myocardial infarction. 7. History of CVA. PLAN: Admit the patient to the surgical unit. We will follow up with pulmonary consultation with Dr. Garcia as well as surgical consult with Dr. Ivan. Kept the patient NPO. IV hydration, DVT prophylaxis, heparin subcutaneous. We will monitor laboratory in the morning. Ji Turcios M.D. DR: DANIELLE JOB#: [id number] CC:
[2019-11-16 04:00] VITALS: BP 135/67
[2019-11-16 07:25] LABS: ALANINE AMINOTRANSFERASE 11 U/L (12-78); ALBUMIN/GLOBULIN RATIO 0.9 (1.0-2.7); ALKALINE PHOSPHATASE 54 U/L (46-116); AMYLASE 15 U/L (25-115); ANION GAP 4 mmol/L (5-15); ASPARTATE AMINO TRANSFERASE 13 U/L (15-37); BILIRUBIN,TOTAL 0.5 MG/DL (0.2-1.0); BLOOD UREA NITROGEN 12 mg/dL (7-18); CALCIUM 8.7 MG/DL (8.5-10.1); CARBON DIOXIDE 30 MMOL/L (21-32); CHLORIDE 103 MMOL/L (98-107); CREATININE 0.6 MG/DL (0.55-1.30); POTASSIUM 3.9 MMOL/L (3.5-5.1); SODIUM 137 MMOL/L (136-145)
[2019-11-16 07:29] LABS: BASOPHILS % (AUTO) 0.5 % (0.0-2.0); EOSINOPHILS % (AUTO) 1.2 % (0.0-3.0); HEMATOCRIT 36.7 % (42.0-52.0); LYMPHOCYTES % (AUTO) 16.3 % (20.0-45.0); MEAN CORPUSCULAR VOLUME 90 FL (80-99); MONOCYTES % (AUTO) 13.4 % (1.0-10.0); NEUTROPHILS % (AUTO) 68.7 % (45.0-75.0); PLATELET COUNT 121 K/UL (150-450); RED BLOOD COUNT 4.08 M/UL (4.70-6.10); RED CELL DISTRIBUTION WIDTH 11.9 % (11.6-14.8); WHITE BLOOD COUNT 7.2 K/UL (4.8-10.8)
--- NOTE | 2019-11-16 07:30 | NUR ---
HAND-OFF: Report given to shanice Graves.
--- NOTE | 2019-11-16 07:49 | NUR ---
NURSE NOTES: Patient, alert x4; on room air, no sing of distress and shortness of breath; no sing of chest pain; IV Right AC 20G D51/2NS running 75cc; NG tube in place on continuous suctioning; Urinal within reach; patient NPO, sign at the bed side; side rails up x2, breaks engaged, bed at lowest position; call light within reach; will keep monitoring.
[2019-11-16 08:00] VITALS: BP 125/55
[2019-11-16 08:00] LABS: PHOSPHORUS 2.9 MG/DL (2.5-4.9)
[2019-11-16] MEDS ORDERED: D5 1/2NS 1000ml IV ONE (08:38)
[2019-11-16] MEDS: Pantoprazole Inj IV SCH (08:43)
[2019-11-16] MEDS: Heparin 5000 units/ml inj SUBQ SCH ×2 (08:46→20:53)
--- NOTE | 2019-11-16 08:53 | Diagnostic Imaging Report ---
EXAM: XR Abdomen, 2 Views CLINICAL HISTORY: F/U TECHNIQUE: Frontal views of the abdomen/pelvis. COMPARISON: Abdominal x-ray dated 11/14/19 FINDINGS: Intraperitoneal space: No free air. Gastrointestinal tract: Persistent nonspecific diffuse distention of small bowel loops with maximum diameter of 3.5 cm. Relative paucity of gas in the colon. Bones/joints: Multilevel degenerative disc space loss and endplate osteophytes throughout the visualized spine. Tubes, lines and devices: NG tube tip in region of the stomach body. IMPRESSION: Persistent diffuse distention of small bowel loops with maximum diameter of 3.5 cm.
--- NOTE | 2019-11-16 08:55 | Diagnostic Imaging Report ---
EXAM: XR Chest, 1 View CLINICAL HISTORY: F/U TECHNIQUE: Frontal view of the chest. COMPARISON: No relevant prior studies available. FINDINGS: Lungs: Mild pulmonary vascular congestion. No focal pulmonary consolidation. Pleural space: Unremarkable. The costophrenic angles are sharp. No visible pneumothorax. Heart: Cardiac silhouette is borderline enlarged. Mediastinum: Unremarkable. Bones/joints: Unremarkable. Tubes, lines and devices: NG tube extends below the diaphragm and its tip is not visualized. IMPRESSION: 1. Mild pulmonary vascular congestion. 2. Cardiac silhouette is borderline enlarged.
--- NOTE | 2019-11-16 11:25 | NUR ---
NURSE NOTES: Patient's Mg 1.6; I communicated the lab value to MD Garcia; waiting for order.
--- NOTE | 2019-11-16 11:33 | NUR ---
NURSE NOTES: Order received from MD Garcia regarding patient's Mg 1.6 level; Order carried out as order given;
[2019-11-16 12:00] VITALS: BP 127/68
--- NOTE | 2019-11-16 13:28 | Surgery Progress Note ---
Surgery Progress Note Subjective Symptoms: improved, voiding well, pain decreased Objective Last 24 Hour Vital Signs Date Time Temp Pulse Resp B/P (MAP) Pulse Ox O2 Delivery O2 Flow Rate FiO2 11/16/19 12:00 98.4 59 20 127/68 (87) 97 11/16/19 09:00 Room Air 11/16/19 08:00 98.2 60 19 125/55 (78) 97 11/16/19 04:00 96.9 72 18 135/67 (89) 95 11/16/19 00:00 99.7 65 18 125/61 (82) 95 11/15/19 21:00 Room Air 11/15/19 20:00 99.0 65 18 131/71 (91) 95 11/15/19 16:00 98.1 66 18 124/66 (85) 95 I&O Intake and Output 11/15/19 11/16/19 19:00 07:00 Intake Total 900 ml 825 ml Output Total 500 ml 300 ml Balance 400 ml 525 ml Intake IV Total 900 ml 825 ml Output Urine Total 500 ml Other 300 ml # Voids 2 5 # Bowel Movements 3 3 Dressing: dry Wound: clean Cardiovascular: RSR Respiratory: clear Abdomen: soft, non-tender, present bowel sounds Extremities: no edema, no tenderness, no cyanosis Laboratory Tests Test 11/16/19 05:10 White Blood Count 7.2 K/UL (4.8-10.8) Red Blood Count 4.08 M/UL (4.70-6.10) L Hemoglobin 13.0 G/DL (14.2-18.0) L Hematocrit 36.7 % (42.0-52.0) L Mean Corpuscular Volume 90 FL (80-99) Mean Corpuscular Hemoglobin 31.9 PG (27.0-31.0) H Mean Corpuscular Hemoglobin Concent 35.4 G/DL (32.0-36.0) Red Cell Distribution Width 11.9 % (11.6-14.8) Platelet Count 121 K/UL (150-450) L Mean Platelet Volume 7.7 FL (6.5-10.1) Neutrophils (%) (Auto) 68.7 % (45.0-75.0) Lymphocytes (%) (Auto) 16.3 % (20.0-45.0) L Monocytes (%) (Auto) 13.4 % (1.0-10.0) H Eosinophils (%) (Auto) 1.2 % (0.0-3.0) Basophils (%) (Auto) 0.5 % (0.0-2.0) Erythrocyte Sedimentation Rate 18 MM/HR (0-20) Prothrombin Time 11.1 SEC (9.30-11.50) Prothromb Time International Ratio 1.0 (0.9-1.1) Activated Partial Thromboplast Time 27 SEC (23-33) Sodium Level 137 MMOL/L (136-145) Potassium Level 3.9 MMOL/L (3.5-5.1) Chloride Level 103 MMOL/L (98-107) Carbon Dioxide Level 30 MMOL/L (21-32) Anion Gap 4 mmol/L (5-15) L Blood Urea Nitrogen 12 mg/dL (7-18) Creatinine 0.6 MG/DL (0.55-1.30) Estimat Glomerular Filtration Rate > 60 mL/min (>60) Glucose Level 109 MG/DL (74-106) H Lactic Acid Level 1.50 mmol/L (0.4-2.0) Calcium Level 8.7 MG/DL (8.5-10.1) Phosphorus Level 2.9 MG/DL (2.5-4.9) Magnesium Level 1.6 MG/DL (1.8-2.4) L Total Bilirubin 0.5 MG/DL (0.2-1.0) Aspartate Amino Transf (AST/SGOT) 13 U/L (15-37) L Alanine Aminotransferase (ALT/SGPT) 11 U/L (12-78) L Alkaline Phosphatase 54 U/L (46-116) C-Reactive Protein, Quantitative 2.0 mg/dL (0.00-0.90) H Total Protein 6.3 G/DL (6.4-8.2) L Albumin 3.0 G/DL (3.4-5.0) L Globulin 3.3 g/dL Albumin/Globulin Ratio 0.9 (1.0-2.7) L Amylase Level 15 U/L (25-115) L Lipase 28 U/L (73-393) L Plan Problems: (1) Small bowel obstruction Assessment & Plan: SBO likely from adhesions as large prior midline midline large incisional ventral hernia reducible no n/v/f/c currently no flatus yet no bowel function returned yet ng in place. bilious gastric output non tender abd with decrease bowel sounds will attempt non operative management. if improves and returns bowel function with bowel reset and decompression npo iv fluids ng tube to low intermittent suction serial abd exam if not improved soon will need to explore discussed with patient in length at bedside thank you will follow with recs kub noted still dilated bowel but abd exam stable cont with conservative management npo, ng tube will follow Prominence of the wall of the distal esophagus may represent esophagitis. Stomach is distended with ingested material, fluid, and gas. Dilated fluid and gas-filled small bowel loops with transition point in the right mid abdomen, concerning for small bowel obstruction. Small amount of ascites. Normal appendix. No hydronephrosis or obstructing stone. Fluid within a right inguinal hernia. Fat within a left inguinal hernia. Atherosclerotic changes of the vasculature. No aortic aneurysm or dissection. Mild prominence of the bladder wall is likely secondary to under distention. Please correlate with urinalysis if concerned for cystitis. Alonso Ivan Nov 16, 2019 13:28
--- NOTE | 2019-11-16 15:57 | Internal Med Progress Note ---
Subjective Date of Service: Nov 16, 2019 Physician Name Giovani Thomson Attending Physician Ji Turcios MD Current Medications Medications (Trade) Dose Ordered Sig/Hortensia Route PRN Reason Start Time Stop Time Status Last Admin Dose Admin Acetaminophen (Tylenol) 650 mg Q4H PRN ORAL fever 11/14/19 22:00 12/14/19 21:59 Dextrose (Dextrose 50%) 25 ml Q30M PRN IV Hypoglycemia 11/14/19 22:00 02/12/20 21:59 Dextrose (Dextrose 50%) 50 ml Q30M PRN IV Hypoglycemia 11/14/19 22:00 02/12/20 21:59 Dextrose/Sodium Chloride 1,000 ml @ 75 mls/hr [id number] IV 11/14/19 21:57 12/14/19 21:56 11/16/19 01:07 Diphenhydramine HCl (Benadryl) 25 mg Q6H PRN ORAL Itching/Pruritis 11/14/19 22:00 12/14/19 21:59 Heparin Sodium (Porcine) (Heparin 5000 units/ml) 5,000 units EVERY 12 HOURS SUBQ 11/15/19 09:00 12/30/19 08:59 Iohexol (OMNIPAQUE-300 100ml) 100 ml NOW PRN INJ Radiology Procedure 11/14/19 18:00 11/16/19 17:59 Metoclopramide HCl (Reglan) 10 mg EVERY 6 HOURS PRN IVP servere nauasea 11/14/19 22:00 12/14/19 21:59 Nitroglycerin (Ntg) 0.4 mg Q5M X 3 DOSES PRN SL Prn Chest Pain 11/14/19 22:00 12/14/19 21:59 Ondansetron HCl (Zofran) 4 mg Q6H PRN IVP Nausea & Vomiting 11/14/19 22:00 12/14/19 21:59 Pantoprazole (Protonix) 40 mg DAILY IV 11/15/19 09:00 12/15/19 08:59 11/16/19 08:43 Polyethylene Glycol (Miralax) 17 gm HSPRN PRN ORAL Constipation 11/14/19 22:00 12/14/19 21:59 Temazepam (Restoril) 15 mg HSPRN PRN ORAL Insomnia 11/14/19 22:30 11/21/19 22:29 Allergies: Coded Allergies: CHLORPROMAZINE (Unverified Allergy, Unknown, 11/14/19) ROS Limited/Unobtainable: No Constitutional: Reports: no symptoms HEENT: Reports: no symptoms Cardiovascular: Reports: no symptoms Respiratory: Reports: no symptoms Gastrointestinal/Abdominal: Reports: abdominal pain, nausea, vomiting Neurologic/Psychiatric: Reports: no symptoms Subjective 64 YO M admitted with abdominal pain, nausea and vomiting Objective Last Vital Signs Date Time Temp Pulse Resp B/P (MAP) Pulse Ox O2 Delivery O2 Flow Rate FiO2 11/16/19 12:00 98.4 59 20 127/68 (87) 97 11/16/19 09:00 Room Air Laboratory Tests Test 11/16/19 05:10 White Blood Count 7.2 K/UL (4.8-10.8) Red Blood Count 4.08 M/UL (4.70-6.10) L Hemoglobin 13.0 G/DL (14.2-18.0) L Hematocrit 36.7 % (42.0-52.0) L Mean Corpuscular Volume 90 FL (80-99) Mean Corpuscular Hemoglobin 31.9 PG (27.0-31.0) H Mean Corpuscular Hemoglobin Concent 35.4 G/DL (32.0-36.0) Red Cell Distribution Width 11.9 % (11.6-14.8) Platelet Count 121 K/UL (150-450) L Mean Platelet Volume 7.7 FL (6.5-10.1) Neutrophils (%) (Auto) 68.7 % (45.0-75.0) Lymphocytes (%) (Auto) 16.3 % (20.0-45.0) L Monocytes (%) (Auto) 13.4 % (1.0-10.0) H Eosinophils (%) (Auto) 1.2 % (0.0-3.0) Basophils (%) (Auto) 0.5 % (0.0-2.0) Erythrocyte Sedimentation Rate 18 MM/HR (0-20) Prothrombin Time 11.1 SEC (9.30-11.50) Prothromb Time International Ratio 1.0 (0.9-1.1) Activated Partial Thromboplast Time 27 SEC (23-33) Sodium Level 137 MMOL/L (136-145) Potassium Level 3.9 MMOL/L (3.5-5.1) Chloride Level 103 MMOL/L (98-107) Carbon Dioxide Level 30 MMOL/L (21-32) Anion Gap 4 mmol/L (5-15) L Blood Urea Nitrogen 12 mg/dL (7-18) Creatinine 0.6 MG/DL (0.55-1.30) Estimat Glomerular Filtration Rate > 60 mL/min (>60) Glucose Level 109 MG/DL (74-106) H Lactic Acid Level 1.50 mmol/L (0.4-2.0) Calcium Level 8.7 MG/DL (8.5-10.1) Phosphorus Level 2.9 MG/DL (2.5-4.9) Magnesium Level 1.6 MG/DL (1.8-2.4) L Total Bilirubin 0.5 MG/DL (0.2-1.0) Aspartate Amino Transf (AST/SGOT) 13 U/L (15-37) L Alanine Aminotransferase (ALT/SGPT) 11 U/L (12-78) L Alkaline Phosphatase 54 U/L (46-116) C-Reactive Protein, Quantitative 2.0 mg/dL (0.00-0.90) H Total Protein 6.3 G/DL (6.4-8.2) L Albumin 3.0 G/DL (3.4-5.0) L Globulin 3.3 g/dL Albumin/Globulin Ratio 0.9 (1.0-2.7) L Amylase Level 15 U/L (25-115) L Lipase 28 U/L (73-393) L Microbiology Date/Time Source Procedure Growth Status 11/15/19 06:43 Stool Clostridium difficile Toxin Assay - Final Complete Intake and Output 11/15/19 11/16/19 19:00 07:00 Intake Total 900 ml 825 ml Output Total 500 ml 300 ml Balance 400 ml 525 ml Intake IV Total 900 ml 825 ml Output Urine Total 500 ml Other 300 ml # Voids 2 5 # Bowel Movements 3 3 Objective PHYSICAL EXAMINATION: GENERAL: The patient is awake, responsive, in no acute distress. HEAD AND NECK: Pupils are equal and reactive to light. Extraocular movements intact. Neck was supple. No JVD. NG tube was noted to intermittent suctioning. LUNGS: Good air entry. No wheezing or rales. HEART: S1, S2. Regular rhythm. No murmur or gallops. ABDOMEN: Soft, nondistended, mildly obese. Ventral hernia was noted in the mid abdomen area over the surgical incision scar area. EXTREMITIES: No cyanosis, clubbing, or edema. NEUROLOGIC: Cranial nerves II through XII grossly intact. Motor is 5/5 in all extremities. The patient is moving all the extremities spontaneously. RECTAL/GENITOURINARY: Refused and deferred. PSYCHIATRIC: Mood and affect are intact. Assessment/Plan Assessment/Plan ASSESSMENT: 1. Abdominal pain, most likely secondary to small bowel obstruction. 2. Dehydration. 3. Nausea, vomiting, and diarrhea. 4. Prior history of abdominal surgery. 5. Hypertension. 6. Coronary artery disease with prior myocardial infarction. 7. History of CVA. PLAN: 1. Admit the patient to the surgical unit. 2. pulmonary consultation = Dr. Garcia as well as 3. surgical consult= Dr. Ivan. 4. NG tube in place; NPO. IV hydration, 5. DVT prophylaxis,heparin subcutaneous. Giovani Thomson MD Nov 16, 2019 15:56
[2019-11-16 16:00] VITALS: BP 143/72
[2019-11-16 16:16] LABS: BASOPHILS % (AUTO) 0.9 % (0.0-2.0); EOSINOPHILS % (AUTO) 0.9 % (0.0-3.0); HEMATOCRIT 37.9 % (42.0-52.0); HEMOGLOBIN 12.5 G/DL (14.2-18.0); LYMPHOCYTES % (AUTO) 13.2 % (20.0-45.0); MEAN CORPUSCULAR VOLUME 92 FL (80-99); MONOCYTES % (AUTO) 13.1 % (1.0-10.0); NEUTROPHILS % (AUTO) 71.9 % (45.0-75.0); PLATELET COUNT 120 K/UL (150-450); WHITE BLOOD COUNT 8.5 K/UL (4.8-10.8)
[2019-11-16 16:45] LABS: ALANINE AMINOTRANSFERASE 12 U/L (12-78); ALBUMIN 3.1 G/DL (3.4-5.0); ALKALINE PHOSPHATASE 60 U/L (46-116); ANION GAP 7 mmol/L (5-15); ASPARTATE AMINO TRANSFERASE 12 U/L (15-37); BILIRUBIN,TOTAL 0.5 MG/DL (0.2-1.0); BLOOD UREA NITROGEN 9 mg/dL (7-18); CALCIUM 8.6 MG/DL (8.5-10.1); CARBON DIOXIDE 28 MMOL/L (21-32); CHLORIDE 100 MMOL/L (98-107); CREATININE 0.5 MG/DL (0.55-1.30); POTASSIUM 3.4 MMOL/L (3.5-5.1); SODIUM 135 MMOL/L (136-145)
--- NOTE | 2019-11-16 17:11 | Pulmonology Progress Note ---
Assessment/Plan Problems: (1) Small bowel obstruction (2) Nausea, vomiting, and diarrhea (3) History of abdominal surgery Assessment/Plan improving NG tube still in place KUB ordered for am check electrolytes Subjective ROS Limited/Unobtainable: No Constitutional: Reports: no symptoms HEENT: Repors: no symptoms Respiratory: Reports: no symptoms Allergies: Coded Allergies: CHLORPROMAZINE (Unverified Allergy, Unknown, 11/14/19) Objective Last 24 Hour Vital Signs Date Time Temp Pulse Resp B/P (MAP) Pulse Ox O2 Delivery O2 Flow Rate FiO2 11/16/19 16:00 97.3 65 20 143/72 (95) 97 11/16/19 12:00 98.4 59 20 127/68 (87) 97 11/16/19 09:00 Room Air 11/16/19 08:00 98.2 60 19 125/55 (78) 97 11/16/19 04:00 96.9 72 18 135/67 (89) 95 11/16/19 00:00 99.7 65 18 125/61 (82) 95 11/15/19 21:00 Room Air 11/15/19 20:00 99.0 65 18 131/71 (91) 95 Intake and Output 11/15/19 11/16/19 19:00 07:00 Intake Total 900 ml 825 ml Output Total 500 ml 300 ml Balance 400 ml 525 ml Intake IV Total 900 ml 825 ml Output Urine Total 500 ml Other 300 ml # Voids 2 5 # Bowel Movements 3 3 Objective General Appearance: WD/WN HEENT: normocephalic Respiratory/Chest: chest wall non-tender, lungs clear Cardiovascular: normal rate, regular rhythm Abdomen: normal bowel sounds, no organomegaly Extremities: no cyanosis Skin: no ulcers 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 Microbiology Date/Time Source Procedure Growth Status 11/15/19 06:43 Stool Clostridium difficile Toxin Assay - Final Complete Laboratory Tests 11/16/19 05:10: White Blood Count 7.2, Red Blood Count 4.08L, Hemoglobin 13.0L, Hematocrit 36.7L , Mean Corpuscular Volume 90, Mean Corpuscular Hemoglobin 31.9H, Mean Corpuscular Hemoglobin Concent 35.4, Red Cell Distribution Width 11.9, Platelet Count 121L, Mean Platelet Volume 7.7, Neutrophils (%) (Auto) 68.7, Lymphocytes ( %) (Auto) 16.3L, Monocytes (%) (Auto) 13.4H, Eosinophils (%) (Auto) 1.2, Basophils (%) (Auto) 0.5, Erythrocyte Sedimentation Rate 18, Prothrombin Time 11.1, Prothromb Time International Ratio 1.0, Activated Partial Thromboplast Time 27, Sodium Level 137, Potassium Level 3.9, Chloride Level 103, Carbon Dioxide Level 30, Anion Gap 4L, Blood Urea Nitrogen 12, Creatinine 0.6, Estimat Glomerular Filtration Rate > 60, Glucose Level 109H, Lactic Acid Level 1.50, Calcium Level 8.7, Phosphorus Level 2.9, Magnesium Level 1.6L, Total Bilirubin 0.5, Aspartate Amino Transf (AST/SGOT) 13L, Alanine Aminotransferase (ALT/SGPT) 11L, Alkaline Phosphatase 54, C-Reactive Protein, Quantitative 2.0H, Total Protein 6.3L, Albumin 3.0L, Globulin 3.3, Albumin/Globulin Ratio 0.9L, Amylase Level 15L, Lipase 28L 11/16/19 16:00: White Blood Count 8.5, Red Blood Count 4.10L, Hemoglobin 12.5L, Hematocrit 37.9L , Mean Corpuscular Volume 92, Mean Corpuscular Hemoglobin 30.6, Mean Corpuscular Hemoglobin Concent 33.1, Red Cell Distribution Width 13.0, Platelet Count 120L, Mean Platelet Volume 8.7, Neutrophils (%) (Auto) 71.9, Lymphocytes ( %) (Auto) 13.2L, Monocytes (%) (Auto) 13.1H, Eosinophils (%) (Auto) 0.9, Basophils (%) (Auto) 0.9, Sodium Level 135L, Potassium Level 3.4L, Chloride Level 100, Carbon Dioxide Level 28, Anion Gap 7, Blood Urea Nitrogen 9, Creatinine 0.5L, Estimat Glomerular Filtration Rate > 60, Glucose Level 98, Calcium Level 8.6, Total Bilirubin 0.5, Aspartate Amino Transf (AST/SGOT) 12L, Alanine Aminotransferase (ALT/SGPT) 12, Alkaline Phosphatase 60, Total Protein 6.2L, Albumin 3.1L, Globulin 3.1, Albumin/Globulin Ratio 1.0 Current Medications Medications (Trade) Dose Ordered Sig/Hortensia Route PRN Reason Start Time Stop Time Status Last Admin Dose Admin Acetaminophen (Tylenol) 650 mg Q4H PRN ORAL fever 11/14/19 22:00 12/14/19 21:59 Dextrose (Dextrose 50%) 25 ml Q30M PRN IV Hypoglycemia 11/14/19 22:00 02/12/20 21:59 Dextrose (Dextrose 50%) 50 ml Q30M PRN IV Hypoglycemia 11/14/19 22:00 02/12/20 21:59 Dextrose/Sodium Chloride 1,000 ml @ 75 mls/hr [id number] IV 11/14/19 21:57 12/14/19 21:56 11/16/19 16:05 Diphenhydramine HCl (Benadryl) 25 mg Q6H PRN ORAL Itching/Pruritis 11/14/19 22:00 12/14/19 21:59 Heparin Sodium (Porcine) (Heparin 5000 units/ml) 5,000 units EVERY 12 HOURS SUBQ 11/15/19 09:00 12/30/19 08:59 Iohexol (OMNIPAQUE-300 100ml) 100 ml NOW PRN INJ Radiology Procedure 11/14/19 18:00 11/16/19 17:59 Metoclopramide HCl (Reglan) 10 mg EVERY 6 HOURS PRN IVP servere nauasea 11/14/19 22:00 12/14/19 21:59 Nitroglycerin (Ntg) 0.4 mg Q5M X 3 DOSES PRN SL Prn Chest Pain 11/14/19 22:00 12/14/19 21:59 Ondansetron HCl (Zofran) 4 mg Q6H PRN IVP Nausea & Vomiting 11/14/19 22:00 12/14/19 21:59 Pantoprazole (Protonix) 40 mg DAILY IV 11/15/19 09:00 12/15/19 08:59 11/16/19 08:43 Polyethylene Glycol (Miralax) 17 gm HSPRN PRN ORAL Constipation 11/14/19 22:00 12/14/19 21:59 Temazepam (Restoril) 15 mg HSPRN PRN ORAL Insomnia 11/14/19 22:30 11/21/19 22:29 Zacarias Garcia MD Nov 16, 2019 17:11
[2019-11-16 20:00] VITALS: BP 151/78
--- NOTE | 2019-11-16 20:00 | NUR ---
NURSE NOTES: RECEIVED PATIENT LYING IN BED, AWAKE, ALERT/ORIENTED X4, VERBALLY RESPONSIVE, DENIES PAIN. IV INTACT TO RIGHT AC/GAUGE 20, TOLERATING IV FLUIDS D51/2 NS 75ML/HOUR, NO REDNESS/SWELLING NOTED TO SITE. NO SIGNS AND SYMPTOMS OF ACUTE CARDIO RESPIRATORY DISTRESS/SHORTNESS OF BREATH, DENIES CHEST PAIN. NG TUBE INTACT TO RIGHT NARE, LOW INTERMITTENT SUCTIONING, NPO EXCEPT ICE CHIPS/MEDICATION. ABDOMEN SOFT/NON TENDER/AUDIBLE BOWEL SOUNDS, DENIES N/V. SIDE RAILS UP X3/BED IN LOWEST POSITION FOR SAFETY, BED ALARM ACTIVATED. ENCOURAGED PATIENT TO UTILIZE CALL LIGHT FOR ASSISTANCE, VERBALIZED UNDERSTANDING. ABDOMINAL XRAY 11/16, PATIENT AWARE.
--- NOTE | 2019-11-16 20:01 | NUR ---
HAND-OFF: Report given to DESIRAE Noonan.
--- NOTE | 2019-11-16 21:00 | NUR ---
NURSE NOTES: HEPARIN WASTED, LOW PLATELETS-
[2019-11-17] VITALS: BP 107/62
[2019-11-17] MEDS: D5 1/2NS 1,000 ML IV SCH ×2 (03:30→14:13)
[2019-11-17 04:00] VITALS: BP 133/65
--- NOTE | 2019-11-17 06:40 | NUR ---
NURSE NOTES: RESTED WELL. SAFETY MAINTAINED. NAD.
--- NOTE | 2019-11-17 07:30 | NUR ---
NURSE NOTES: WALKING ROUNDS DONE WITH NIGHT RN. PATIENT ASLEEP IN BED BUT EASY TO AROUSE. RIGHT NARE NGT IN PLACE AND SECURED. OUTPUT YELLOWISH-BROWN. DENIES PAIN. DISCUSSED PLAN OF CARE FOR THE DAY. QUESTIONS ANSWERED NEEDS MET AT THIS TIME.VERBALIZED UNDERSTANDING. BED IN LOW AND LOCKED POSITION. CALL LIGHT WITHIN REACH.
--- NOTE | 2019-11-17 07:40 | NUR ---
NURSE NOTES: ENDORSED BY NIGHT NURSE OF PATIENT HAVING FEVER 101.8 ORALLY. TWO MESSAGES PLACED TO DR. WEBSTER TO REPORT. AWAITING RETURN CALL.
--- NOTE | 2019-11-17 07:55 | NUR ---
NURSE NOTES: RETURN CALL RECEIVE WILL CONSULT DR. JONES FROM I.D.
[2019-11-17 08:00] VITALS: BP 154/75
--- NOTE | 2019-11-17 08:33 | NUR ---
RADIOLOGY NOTE: PORTABLE X-RAY OF ABDOMEN COMPLETED AT 0804 HRS. FA
[2019-11-17] MEDS: Pantoprazole Inj IV SCH (09:21)
[2019-11-17] MEDS: Heparin 5000 units/ml inj SUBQ SCH ×2 (09:27→21:07)
[2019-11-17 11:37] VITALS: BP 125/68
--- NOTE | 2019-11-17 14:35 | Internal Med Progress Note ---
Subjective Date of Service: Nov 17, 2019 Physician Name AlixGiovani Attending Physician Ji Turcios MD Current Medications Medications (Trade) Dose Ordered Sig/Hortensia Route PRN Reason Start Time Stop Time Status Last Admin Dose Admin Acetaminophen (Tylenol) 650 mg Q4H PRN ORAL fever 11/14/19 22:00 12/14/19 21:59 11/17/19 00:38 Dextrose (Dextrose 50%) 25 ml Q30M PRN IV Hypoglycemia 11/14/19 22:00 02/12/20 21:59 Dextrose (Dextrose 50%) 50 ml Q30M PRN IV Hypoglycemia 11/14/19 22:00 02/12/20 21:59 Dextrose/Sodium Chloride 1,000 ml @ 75 mls/hr [id number] IV 11/14/19 21:57 12/14/19 21:56 11/17/19 14:13 Diphenhydramine HCl (Benadryl) 25 mg Q6H PRN ORAL Itching/Pruritis 11/14/19 22:00 12/14/19 21:59 Heparin Sodium (Porcine) (Heparin 5000 units/ml) 5,000 units EVERY 12 HOURS SUBQ 11/15/19 09:00 12/30/19 08:59 11/17/19 09:27 Metoclopramide HCl (Reglan) 10 mg EVERY 6 HOURS PRN IVP servere nauasea 11/14/19 22:00 12/14/19 21:59 Nitroglycerin (Ntg) 0.4 mg Q5M X 3 DOSES PRN SL Prn Chest Pain 11/14/19 22:00 12/14/19 21:59 Ondansetron HCl (Zofran) 4 mg Q6H PRN IVP Nausea & Vomiting 11/14/19 22:00 12/14/19 21:59 Pantoprazole (Protonix) 40 mg DAILY IV 11/15/19 09:00 12/15/19 08:59 11/17/19 09:21 Polyethylene Glycol (Miralax) 17 gm HSPRN PRN ORAL Constipation 11/14/19 22:00 12/14/19 21:59 Temazepam (Restoril) 15 mg HSPRN PRN ORAL Insomnia 11/14/19 22:30 11/21/19 22:29 Allergies: Coded Allergies: CHLORPROMAZINE (Unverified Allergy, Unknown, 11/14/19) ROS Limited/Unobtainable: No Constitutional: Reports: no symptoms HEENT: Reports: no symptoms Cardiovascular: Reports: no symptoms Respiratory: Reports: no symptoms Gastrointestinal/Abdominal: Reports: abdomen distended, abdominal pain Genitourinary: Reports: no symptoms Neurologic/Psychiatric: Reports: no symptoms Subjective 64 YO M admitted with abdominal pain, nausea and vomiting. Now small bowel obstruction. Cover for Int Gideon-DR Turcios Objective Last Vital Signs Date Time Temp Pulse Resp B/P (MAP) Pulse Ox O2 Delivery O2 Flow Rate FiO2 11/17/19 11:37 98.6 75 20 125/68 (87) 97 11/17/19 09:00 Room Air Laboratory Tests Test 11/16/19 16:00 White Blood Count 8.5 K/UL (4.8-10.8) Red Blood Count 4.10 M/UL (4.70-6.10) L Hemoglobin 12.5 G/DL (14.2-18.0) L Hematocrit 37.9 % (42.0-52.0) L Mean Corpuscular Volume 92 FL (80-99) Mean Corpuscular Hemoglobin 30.6 PG (27.0-31.0) Mean Corpuscular Hemoglobin Concent 33.1 G/DL (32.0-36.0) Red Cell Distribution Width 13.0 % (11.6-14.8) Platelet Count 120 K/UL (150-450) L Mean Platelet Volume 8.7 FL (6.5-10.1) Neutrophils (%) (Auto) 71.9 % (45.0-75.0) Lymphocytes (%) (Auto) 13.2 % (20.0-45.0) L Monocytes (%) (Auto) 13.1 % (1.0-10.0) H Eosinophils (%) (Auto) 0.9 % (0.0-3.0) Basophils (%) (Auto) 0.9 % (0.0-2.0) Sodium Level 135 MMOL/L (136-145) L Potassium Level 3.4 MMOL/L (3.5-5.1) L Chloride Level 100 MMOL/L (98-107) Carbon Dioxide Level 28 MMOL/L (21-32) Anion Gap 7 mmol/L (5-15) Blood Urea Nitrogen 9 mg/dL (7-18) Creatinine 0.5 MG/DL (0.55-1.30) L Estimat Glomerular Filtration Rate > 60 mL/min (>60) Glucose Level 98 MG/DL (74-106) Calcium Level 8.6 MG/DL (8.5-10.1) Total Bilirubin 0.5 MG/DL (0.2-1.0) Aspartate Amino Transf (AST/SGOT) 12 U/L (15-37) L Alanine Aminotransferase (ALT/SGPT) 12 U/L (12-78) Alkaline Phosphatase 60 U/L (46-116) Total Protein 6.2 G/DL (6.4-8.2) L Albumin 3.1 G/DL (3.4-5.0) L Globulin 3.1 g/dL Albumin/Globulin Ratio 1.0 (1.0-2.7) Microbiology Date/Time Source Procedure Growth Status 11/15/19 06:43 Stool Clostridium difficile Toxin Assay - Final Complete Intake and Output 11/16/19 11/17/19 19:00 07:00 Intake Total 675 ml 780 ml Output Total 1500 ml 1000 ml Balance -825 ml -220 ml Intake Oral 30 ml IV Total 675 ml 750 ml Output Urine Total 500 ml 500 ml Other 1000 ml 500 ml # Voids 2 1 # Bowel Movements 1 Objective PHYSICAL EXAMINATION: GENERAL: The patient is awake, responsive, in no acute distress. HEAD AND NECK: Pupils are equal and reactive to light. Extraocular movements intact. Neck was supple. No JVD. NG tube was noted to intermittent suctioning. LUNGS: Good air entry. No wheezing or rales. HEART: S1, S2. Regular rhythm. No murmur or gallops. ABDOMEN: Soft, nondistended, mildly obese. Ventral hernia was noted in the mid abdomen area over the surgical incision scar area. EXTREMITIES: No cyanosis, clubbing, or edema. NEUROLOGIC: Cranial nerves II through XII grossly intact. Motor is 5/5 in all extremities. The patient is moving all the extremities spontaneously. RECTAL/GENITOURINARY: Refused and deferred. PSYCHIATRIC: Mood and affect are intact. Assessment/Plan Assessment/Plan ASSESSMENT: 1. Abdominal pain/small bowel obstruction. 2. Dehydration. 3. Nausea, vomiting, and diarrhea. 4. Prior history of abdominal surgery. 5. Hypertension. 6. Coronary artery disease with prior myocardial infarction. 7. History of CVA. PLAN: 1. Admit the patient to the surgical unit. 2. pulmonary consultation = Dr. Garcia as well as 3. surgical consult= Dr. Ivan. 4. NG tube in place; NPO. IV hydration, 5. DVT prophylaxis,heparin subcutaneous. Giovani Thomson MD Nov 17, 2019 14:35
[2019-11-17 15:37] VITALS: BP 134/63
--- NOTE | 2019-11-17 16:34 | Pulmonology Progress Note ---
Assessment/Plan Problems: (1) Small bowel obstruction (2) Nausea, vomiting, and diarrhea (3) History of abdominal surgery Assessment/Plan improving still NPO NG tube still in place KUB ordered for am check electrolytes Subjective ROS Limited/Unobtainable: No Constitutional: Reports: no symptoms HEENT: Repors: no symptoms Respiratory: Reports: no symptoms Allergies: Coded Allergies: CHLORPROMAZINE (Unverified Allergy, Unknown, 11/14/19) Objective Last 24 Hour Vital Signs Date Time Temp Pulse Resp B/P (MAP) Pulse Ox O2 Delivery O2 Flow Rate FiO2 11/17/19 15:37 99.9 66 20 134/63 (86) 97 11/17/19 11:37 98.6 75 20 125/68 (87) 97 11/17/19 09:00 Room Air 11/17/19 08:00 98.5 68 19 154/75 (101) 96 11/17/19 05:53 99.6 11/17/19 04:00 100.6 68 20 133/65 (87) 95 11/17/19 01:08 100.4 11/17/19 00:00 101.8 72 20 107/62 (77) 98 11/16/19 21:00 Room Air 11/16/19 20:00 98.9 75 20 151/78 (102) 96 Intake and Output 11/16/19 11/17/19 19:00 07:00 Intake Total 675 ml 780 ml Output Total 1500 ml 1000 ml Balance -825 ml -220 ml Intake Oral 30 ml IV Total 675 ml 750 ml Output Urine Total 500 ml 500 ml Other 1000 ml 500 ml # Voids 2 1 # Bowel Movements 1 Objective General Appearance: WD/WN HEENT: normocephalic Respiratory/Chest: chest wall non-tender, lungs clear Cardiovascular: normal rate, regular rhythm Abdomen: normal bowel sounds, no organomegaly Extremities: no cyanosis Skin: no ulcers 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 Microbiology Date/Time Source Procedure Growth Status 11/15/19 06:43 Stool Clostridium difficile Toxin Assay - Final Complete Current Medications Medications (Trade) Dose Ordered Sig/Hortensia Route PRN Reason Start Time Stop Time Status Last Admin Dose Admin Acetaminophen (Tylenol) 650 mg Q4H PRN ORAL fever 11/14/19 22:00 12/14/19 21:59 11/17/19 00:38 Dextrose (Dextrose 50%) 25 ml Q30M PRN IV Hypoglycemia 11/14/19 22:00 02/12/20 21:59 Dextrose (Dextrose 50%) 50 ml Q30M PRN IV Hypoglycemia 11/14/19 22:00 02/12/20 21:59 Dextrose/Sodium Chloride 1,000 ml @ 75 mls/hr [id number] IV 11/14/19 21:57 12/14/19 21:56 11/17/19 14:13 Diphenhydramine HCl (Benadryl) 25 mg Q6H PRN ORAL Itching/Pruritis 11/14/19 22:00 12/14/19 21:59 Heparin Sodium (Porcine) (Heparin 5000 units/ml) 5,000 units EVERY 12 HOURS SUBQ 11/15/19 09:00 12/30/19 08:59 11/17/19 09:27 Metoclopramide HCl (Reglan) 10 mg EVERY 6 HOURS PRN IVP servere nauasea 11/14/19 22:00 12/14/19 21:59 Nitroglycerin (Ntg) 0.4 mg Q5M X 3 DOSES PRN SL Prn Chest Pain 11/14/19 22:00 12/14/19 21:59 Ondansetron HCl (Zofran) 4 mg Q6H PRN IVP Nausea & Vomiting 11/14/19 22:00 12/14/19 21:59 Pantoprazole (Protonix) 40 mg DAILY IV 11/15/19 09:00 12/15/19 08:59 11/17/19 09:21 Polyethylene Glycol (Miralax) 17 gm HSPRN PRN ORAL Constipation 11/14/19 22:00 12/14/19 21:59 Temazepam (Restoril) 15 mg HSPRN PRN ORAL Insomnia 11/14/19 22:30 11/21/19 22:29 Zacarias Garcia MD Nov 17, 2019 16:34
--- NOTE | 2019-11-17 16:43 | NUR ---
NURSE NOTES: PATIENT REMAINS STABLE. RIGHT NARE NGT IN PLACE AND SECURED. OUTPUT BROWNISH-YELLOW. PATIENT STATES THEY ARE FEELING BETTER. DENIES N/V TODAY. PASSING FLATUS. VSS. AFEBRILE.
--- NOTE | 2019-11-17 17:10 | Surgery Progress Note ---
Surgery Progress Note Subjective Additional Comments febrile HD stable labs okay kub results pending passing flatus. states he feels much better lots of ng tube output Objective Last 24 Hour Vital Signs Date Time Temp Pulse Resp B/P (MAP) Pulse Ox O2 Delivery O2 Flow Rate FiO2 11/17/19 15:37 99.9 66 20 134/63 (86) 97 11/17/19 11:37 98.6 75 20 125/68 (87) 97 11/17/19 09:00 Room Air 11/17/19 08:00 98.5 68 19 154/75 (101) 96 11/17/19 05:53 99.6 11/17/19 04:00 100.6 68 20 133/65 (87) 95 11/17/19 01:08 100.4 11/17/19 00:00 101.8 72 20 107/62 (77) 98 11/16/19 21:00 Room Air 11/16/19 20:00 98.9 75 20 151/78 (102) 96 I&O Intake and Output 11/16/19 11/17/19 19:00 07:00 Intake Total 675 ml 780 ml Output Total 1500 ml 1000 ml Balance -825 ml -220 ml Intake Oral 30 ml IV Total 675 ml 750 ml Output Urine Total 500 ml 500 ml Other 1000 ml 500 ml # Voids 2 1 # Bowel Movements 1 Cardiovascular: RSR Respiratory: clear Abdomen: soft, distended, non-tender, present bowel sounds Extremities: no tenderness, no cyanosis Plan Problems: (1) Small bowel obstruction Assessment & Plan: SBO likely from adhesions as large prior midline midline large incisional ventral hernia reducible no n/v/f/c currently no flatus yet no bowel function returned yet ng in place. bilious gastric output non tender abd with decrease bowel sounds will attempt non operative management. if improves and returns bowel function with bowel reset and decompression npo iv fluids ng tube to low intermittent suction serial abd exam if not improved soon will need to explore discussed with patient in length at bedside thank you will follow with recs kub noted still dilated bowel but abd exam stable cont with conservative management npo, ng tube will follow plan for gi contrast study tomorrow Prominence of the wall of the distal esophagus may represent esophagitis. Stomach is distended with ingested material, fluid, and gas. Dilated fluid and gas-filled small bowel loops with transition point in the right mid abdomen, concerning for small bowel obstruction. Small amount of ascites. Normal appendix. No hydronephrosis or obstructing stone. Fluid within a right inguinal hernia. Fat within a left inguinal hernia. Atherosclerotic changes of the vasculature. No aortic aneurysm or dissection. Mild prominence of the bladder wall is likely secondary to under distention. Please correlate with urinalysis if concerned for cystitis. Alonso Ivan Nov 17, 2019 17:10
--- NOTE | 2019-11-17 19:10 | NUR ---
HAND-OFF: Report given to LULI CHARGE NURSE .
--- NOTE | 2019-11-17 19:15 | NUR ---
NURSE NOTES: Received report from EDWARD Pires. Seen pt for initial rounding. pt is resting, sitting up in bed, resp even, unlabored. pt is AAOX3, NGT intact to suction. setting checked and verified. Denies pain, no apparent distress noted. Call light w/in reach. no further needs noted at this time, instructed to call for assistance as needed.
[2019-11-17 20:00] VITALS: BP 130/61
[2019-11-18] VITALS: BP 137/74
[2019-11-18 04:00] VITALS: BP 126/62
[2019-11-18] MEDS: D5 1/2NS 1,000 ML IV SCH ×3 (04:32→21:17)
[2019-11-18 05:55] LABS: BASOPHILS % (AUTO) 0.9 % (0.0-2.0); EOSINOPHILS % (AUTO) 0.3 % (0.0-3.0); HEMATOCRIT 35.4 % (42.0-52.0); HEMOGLOBIN 12.8 G/DL (14.2-18.0); LYMPHOCYTES % (AUTO) 12.6 % (20.0-45.0); MEAN CORPUSCULAR VOLUME 87 FL (80-99); MONOCYTES % (AUTO) 16.7 % (1.0-10.0); NEUTROPHILS % (AUTO) 69.5 % (45.0-75.0); PLATELET COUNT 128 K/UL (150-450); RED BLOOD COUNT 4.04 M/UL (4.70-6.10); RED CELL DISTRIBUTION WIDTH 11.1 % (11.6-14.8); WHITE BLOOD COUNT 9.1 K/UL (4.8-10.8)
[2019-11-18 06:29] LABS: ALANINE AMINOTRANSFERASE 16 U/L (12-78); ALBUMIN 2.8 G/DL (3.4-5.0); ALBUMIN/GLOBULIN RATIO 0.7 (1.0-2.7); ALKALINE PHOSPHATASE 64 U/L (46-116); ANION GAP 15 mmol/L (5-15); ASPARTATE AMINO TRANSFERASE 12 U/L (15-37); BILIRUBIN,TOTAL 0.8 MG/DL (0.2-1.0); BLOOD UREA NITROGEN 9 mg/dL (7-18); CALCIUM 8.9 MG/DL (8.5-10.1); CARBON DIOXIDE 22 MMOL/L (21-32); CHLORIDE 99 MMOL/L (98-107); CREATININE 0.6 MG/DL (0.55-1.30); POTASSIUM 3.3 MMOL/L (3.5-5.1); SODIUM 136 MMOL/L (136-145)
--- NOTE | 2019-11-18 07:20 | NUR ---
HAND-OFF: Report given to Jason Hinton RN.
--- NOTE | 2019-11-18 07:30 | NUR ---
NURSE NOTES: Patient lying in bed awake. No complain of pain or distress at this time. IV dressing intact and dry. NG tube patent and suctioning well. Bed lowest position. Call light within reach. Will continue to monitor.
[2019-11-18 08:00] VITALS: BP 129/66
[2019-11-18] MEDS: Pantoprazole Inj IV SCH (09:38)
[2019-11-18] MEDS: Heparin 5000 units/ml inj SUBQ SCH ×2 (09:44→21:00)
--- NOTE | 2019-11-18 10:10 | NUR ---
*-* INSURANCE *-* ALL AVAILABLE CLINICALS AND REVIEWS HAVE BEEN FAXED TO: [facility] COORDINATOR: GRISELDA P: [phone] F: [phone]
--- NOTE | 2019-11-18 10:16 | Consultation ---
History of Present Illness General Date patient seen: Nov 18, 2019 Time patient seen: 16:21 Chief Complaint: Nausea, Vomiting, and Diarrhea Reason for Consultation: fever Present Illness HPI 64yo gentleman with PMH HTN, DM, liver cirrhosis presents with nausea, vomiting , diarrhea for one day from a [facility]. Pt diagnosed with SBO on imaging. ID consulted for new onset fevers. Pt denies fever or chills at [facility]. Pt reports productive cough, yellow sputum that started in the hospital. Pt reports congestion but denies sore throat. States his diarrhea/nausea have improved. Pt reports having a conservator. Denies any sick people at the [facility]. PMH: Dm, HTN, cirrhosis SHx: denies cig, etoh, drug use. lives at [facility]. FHx: noncontributory Allergies: Coded Allergies: CHLORPROMAZINE (Unverified Allergy, Unknown, 11/14/19) Patient History Healthcare decision maker Resuscitation status Advanced Directive on File Review of Systems All Other Systems: negative except mentioned in HPI Physical Exam General Appearance: no apparent distress, alert HEENT: normocephalic, atraumatic, anicteric, mucous membranes moist, EOMI, supple Neck: non-tender, normal alignment, supple Respiratory/Chest: normal breath sounds, no respiratory distress, no accessory muscle use Cardiovascular/Chest: normal rate, regular rhythm Abdomen: normal bowel sounds, non tender, soft, no mass Extremities: non-tender, normal inspection, no calf tenderness, normal capillary refill, non-pitting, no edema, no cyanosis Skin Exam: normal pigmentation, warm/dry, no diaphoresis Neurologic: alert, responsive, normal mood/affect Last 24 Hour Vital Signs Date Time Temp Pulse Resp B/P (MAP) Pulse Ox O2 Delivery O2 Flow Rate FiO2 11/18/19 08:00 99.3 71 20 129/66 (87) 96 11/18/19 04:00 97.7 66 21 126/62 (83) 94 11/18/19 00:00 99.9 74 21 137/74 (95) 95 11/17/19 21:00 Room Air 11/17/19 20:00 101.5 77 21 130/61 (84) 92 11/17/19 15:37 99.9 66 20 134/63 (86) 97 11/17/19 11:37 98.6 75 20 125/68 (87) 97 Intake and Output 11/17/19 11/18/19 19:00 07:00 Intake Total 900 ml 855 ml Output Total 1300 ml 1200 ml Balance -400 ml -345 ml Intake Oral 30 ml IV Total 900 ml 825 ml Output Urine Total 450 ml Gastric Drainage Total 1300 ml 750 ml # Voids 3 Laboratory Tests Test 11/18/19 05:05 White Blood Count 9.1 K/UL (4.8-10.8) Red Blood Count 4.04 M/UL (4.70-6.10) L Hemoglobin 12.8 G/DL (14.2-18.0) L Hematocrit 35.4 % (42.0-52.0) L Mean Corpuscular Volume 87 FL (80-99) Mean Corpuscular Hemoglobin 31.7 PG (27.0-31.0) H Mean Corpuscular Hemoglobin Concent 36.2 G/DL (32.0-36.0) H Red Cell Distribution Width 11.1 % (11.6-14.8) L Platelet Count 128 K/UL (150-450) L Mean Platelet Volume 7.9 FL (6.5-10.1) Neutrophils (%) (Auto) 69.5 % (45.0-75.0) Lymphocytes (%) (Auto) 12.6 % (20.0-45.0) L Monocytes (%) (Auto) 16.7 % (1.0-10.0) H Eosinophils (%) (Auto) 0.3 % (0.0-3.0) Basophils (%) (Auto) 0.9 % (0.0-2.0) Sodium Level 136 MMOL/L (136-145) Potassium Level 3.3 MMOL/L (3.5-5.1) L Chloride Level 99 MMOL/L (98-107) Carbon Dioxide Level 22 MMOL/L (21-32) Anion Gap 15 mmol/L (5-15) Blood Urea Nitrogen 9 mg/dL (7-18) Creatinine 0.6 MG/DL (0.55-1.30) Estimat Glomerular Filtration Rate > 60 mL/min (>60) Glucose Level 123 MG/DL (74-106) H Calcium Level 8.9 MG/DL (8.5-10.1) Total Bilirubin 0.8 MG/DL (0.2-1.0) Aspartate Amino Transf (AST/SGOT) 12 U/L (15-37) L Alanine Aminotransferase (ALT/SGPT) 16 U/L (12-78) Alkaline Phosphatase 64 U/L (46-116) Total Protein 6.7 G/DL (6.4-8.2) Albumin 2.8 G/DL (3.4-5.0) L Globulin 3.9 g/dL Albumin/Globulin Ratio 0.7 (1.0-2.7) L Height (Feet): 5 Height (Inches): 9.00 Weight (Pounds): 195 Medications Current Medications Medications (Trade) Dose Ordered Sig/Hortensia Route PRN Reason Start Time Stop Time Status Last Admin Dose Admin Acetaminophen (Tylenol) 650 mg Q4H PRN ORAL fever 11/14/19 22:00 12/14/19 21:59 11/17/19 00:38 Dextrose (Dextrose 50%) 25 ml Q30M PRN IV Hypoglycemia 11/14/19 22:00 02/12/20 21:59 Dextrose (Dextrose 50%) 50 ml Q30M PRN IV Hypoglycemia 11/14/19 22:00 02/12/20 21:59 Dextrose/Sodium Chloride 1,000 ml @ 75 mls/hr [id number] IV 11/14/19 21:57 12/14/19 21:56 11/18/19 04:32 Diphenhydramine HCl (Benadryl) 25 mg Q6H PRN ORAL Itching/Pruritis 11/14/19 22:00 12/14/19 21:59 Heparin Sodium (Porcine) (Heparin 5000 units/ml) 5,000 units EVERY 12 HOURS SUBQ 11/15/19 09:00 12/30/19 08:59 11/18/19 09:44 Metoclopramide HCl (Reglan) 10 mg EVERY 6 HOURS PRN IVP servere nauasea 11/14/19 22:00 12/14/19 21:59 Nitroglycerin (Ntg) 0.4 mg Q5M X 3 DOSES PRN SL Prn Chest Pain 11/14/19 22:00 12/14/19 21:59 Ondansetron HCl (Zofran) 4 mg Q6H PRN IVP Nausea & Vomiting 11/14/19 22:00 12/14/19 21:59 Pantoprazole (Protonix) 40 mg DAILY IV 11/15/19 09:00 12/15/19 08:59 11/18/19 09:38 Polyethylene Glycol (Miralax) 17 gm HSPRN PRN ORAL Constipation 11/14/19 22:00 12/14/19 21:59 Temazepam (Restoril) 15 mg HSPRN PRN ORAL Insomnia 11/14/19 22:30 11/21/19 22:29 Assessment/Plan Assessment/Plan: 64yo gentleman with PMH HTN, DM, liver cirrhosis presents with abdominal pain, nausea, vomiting. Pt diagnosed with SBO on imaging. ID consulted for new onset fevers. Fever Sepsis Normal leukocyte count with lymphopenia Nausea/Vomiting Cough CXR: Mild pulmonary vascular congestion. Cardiac silhouette is borderline enlarged. Unlikely SBP, trace ascites on US SBO 11/13 CT A/P: Small bowel obstruction with suspected transition point in the right mid abdomen. Some swirling is also noted within the mesentery and the possibility of internal hernia not excluded. Mild ascites noted. No free intraperitoneal air, pneumatosis intestinalis or portal venous gas noted at this time. Thickening of the wall the distal esophagus which may related to esophagitis. Fluid within a small right inguinal hernia. Small fat-containing left inguinal hernia. 11/15 KUB: Persistent diffuse distention of small bowel loops with maximum diameter of 3.5 cm. HTN DM Liver Cirrhosis Plan: Ceftriaxone and flagyl #1 for GI awais COVID 19 rule out..~50% of pts with COVID can presents without fevers initially. while GI symptoms likely 2/2 SBO, GI symptoms have been reported as early symptoms of COVID. flu swab sputum culture isolation precaution monitor temp and CBC monitor resp status two sets of bcx LIANA RN and surgeon Zach Moreau MD Nov 18, 2019 10:16
--- NOTE | 2019-11-18 10:44 | General Progress Note ---
Assessment/Plan Problem List: (1) Cirrhosis ICD Codes: K74.60 - Unspecified cirrhosis of liver SNOMED: 15746966 (2) Ascites ICD Codes: R18.8 - Other ascites SNOMED: 478712423 (3) Esophagitis ICD Codes: K20.9 - Esophagitis, unspecified SNOMED: 63802410 (4) Nausea, vomiting, and diarrhea ICD Codes: R11.2 - Nausea with vomiting, unspecified; R19.7 - Diarrhea, unspecified SNOMED: 3535703 (5) Fever ICD Codes: R50.9 - Fever, unspecified SNOMED: 565517192 (6) Small bowel obstruction ICD Codes: K56.609 - Unspecified intestinal obstruction, unspecified as to partial versus complete obstruction SNOMED: 866519689 (7) History of abdominal surgery ICD Codes: Z98.890 - Other specified postprocedural states SNOMED: 629546746, 826732687 Assessment/Plan: npo ivf fu SBFT fu surg recs hepatitis panel ppi EGD when more stable now on COVET 19 isolation Subjective ROS Limited/Unobtainable: Yes Allergies: Coded Allergies: CHLORPROMAZINE (Unverified Allergy, Unknown, 11/14/19) Objective Last 24 Hour Vital Signs Date Time Temp Pulse Resp B/P (MAP) Pulse Ox O2 Delivery O2 Flow Rate FiO2 11/18/19 09:00 Room Air 11/18/19 08:00 99.3 71 20 129/66 (87) 96 11/18/19 04:00 97.7 66 21 126/62 (83) 94 11/18/19 00:00 99.9 74 21 137/74 (95) 95 11/17/19 21:00 Room Air 11/17/19 20:00 101.5 77 21 130/61 (84) 92 11/17/19 15:37 99.9 66 20 134/63 (86) 97 11/17/19 11:37 98.6 75 20 125/68 (87) 97 Intake and Output 11/17/19 11/18/19 19:00 07:00 Intake Total 900 ml 855 ml Output Total 1300 ml 1200 ml Balance -400 ml -345 ml Intake Oral 30 ml IV Total 900 ml 825 ml Output Urine Total 450 ml Gastric Drainage Total 1300 ml 750 ml # Voids 3 Laboratory Tests 11/18/19 05:05: White Blood Count 9.1, Red Blood Count 4.04L, Hemoglobin 12.8L, Hematocrit 35.4L , Mean Corpuscular Volume 87, Mean Corpuscular Hemoglobin 31.7H, Mean Corpuscular Hemoglobin Concent 36.2H, Red Cell Distribution Width 11.1L, Platelet Count 128L, Mean Platelet Volume 7.9, Neutrophils (%) (Auto) 69.5, Lymphocytes (%) (Auto) 12.6L, Monocytes (%) (Auto) 16.7H, Eosinophils (%) (Auto ) 0.3, Basophils (%) (Auto) 0.9, Sodium Level 136, Potassium Level 3.3L, Chloride Level 99, Carbon Dioxide Level 22, Anion Gap 15, Blood Urea Nitrogen 9 , Creatinine 0.6, Estimat Glomerular Filtration Rate > 60, Glucose Level 123H, Calcium Level 8.9, Total Bilirubin 0.8, Aspartate Amino Transf (AST/SGOT) 12L, Alanine Aminotransferase (ALT/SGPT) 16, Alkaline Phosphatase 64, Total Protein 6.7, Albumin 2.8L, Globulin 3.9, Albumin/Globulin Ratio 0.7L Height (Feet): 5 Height (Inches): 9.00 Weight (Pounds): 195 General Appearance: alert EENT: PERRL/EOMI Neck: supple Cardiovascular: normal rate Respiratory/Chest: decreased breath sounds Abdomen: hypoactive bowel sounds Extremities: non-tender Dain Jules MD Nov 18, 2019 10:44
--- NOTE | 2019-11-18 10:48 | NUR ---
CASE MANAGEMENT:REVIEW 11/16/2019 SI: SBO 99.7 65 18 125/61 95% ON RA LABS: PLT 121 H/H 13.0/36.7 NA+ 135 K+ 3.4 POLY 15 LIPASE 28 IS:DEXTROSE IV @ 75 ML/HR PROTONIX IV QD HEPARIN SQ BID TYLENOL PO Q4HR/PRN \: 3E MED/SURG PLAN OF CARE: CONTINUE NGT TO LIS TRANSFER TO [facility] PENDING GI CONSULT
--- NOTE | 2019-11-18 10:56 | NUR ---
CASE MANAGEMENT:REVIEW 11/16/2019 SI: SBO . CIRRHOSIS . ASCITES . ESOPHAGITIS . FEVER 99.7 65 18 125/61 95% ON RA LABS: PLT 121 H/H 13.0/36.7 NA+ 135 K+ 3.4 POLY 15 LIPASE 28 IS:DEXTROSE IV @ 75 ML/HR PROTONIX IV QD HEPARIN SQ BID TYLENOL PO Q4HR/PRN CHEST X-RAY- 1. Mild pulmonary vascular congestion. 2. Cardiac silhouette is borderline enlarged. X-RAY ABD- Persistent diffuse distention of small bowel loops with maximum diameter of 3.5 cm. \: 3E MED/SURG PLAN OF CARE: CONTINUE NGT TO LIS KUB IN AM MONITOR ELECTROLYTES CASE MANAGEMENT:REVIEW 11/17/2019 SI: SBO . CIRRHOSIS . ASCITES . ESOPHAGITIS . FEVER 101.8 72 20 107/62 98% ON RA IS:DEXTROSE IV @ 75 ML/HR PROTONIX IV QD HEPARIN SQ BID TYLENOL PO Q4HR/PRN \: 3E MED/SURG PLAN OF CARE: CONTINUE NGT TO LIS CASE MANAGEMENT:REVIEW 11/18/2019 SI: SBO . CIRRHOSIS . ASCITES . ESOPHAGITIS . FEVER 99.9 74 21 137/74 95% ON RA H/H 12.8/35.4 PLT 128 K+ 3.3 BG 123 IS:DEXTROSE IV @ 75 ML/HR PROTONIX IV QD HEPARIN SQ BID TYLENOL PO Q4HR/PRN \: 3E MED/SURG PLAN OF CARE: CONTINUE NGT TO LIS SBFT TODAY TRANSFER TO [facility] PENDING GI EVAL
[2019-11-18] MEDS ORDERED: cefTRIAXone 1 GM in D5W 55 ML IVPB SCH (11:00)
--- NOTE | 2019-11-18 11:15 | NUR ---
*-* INSURANCE *-* ALL UPDATED REVIEWS HAVE BEEN FAXED TO: [facility] COORDINATOR: GRISELDA P: [phone] F: [phone]
[2019-11-18 12:00] VITALS: BP 123/62
--- NOTE | 2019-11-18 12:52 | Diagnostic Imaging Report ---
Indication: Bowel obstruction. Follow-up. Abdominal pain Comparison: 11/16/2019 Single view of the abdomen obtained Findings: NG tube is present and satisfactory in position. There is less small bowel gas. What is visualized of small bowel appears slightly less dilated than on the prior occasion. There is a small amount of gas within the colon also. IMPRESSION: Limited evaluation due to relative lack of small bowel gas. There is some evidence for improvement with regard to degree of small bowel dilatation compared to prior films.
--- NOTE | 2019-11-18 14:22 | Surgery Progress Note ---
Surgery Progress Note Subjective Symptoms: improved, passing flatus Objective Last 24 Hour Vital Signs Date Time Temp Pulse Resp B/P (MAP) Pulse Ox O2 Delivery O2 Flow Rate FiO2 11/18/19 12:00 98.6 60 18 123/62 (82) 94 11/18/19 09:00 Room Air 11/18/19 08:00 99.3 71 20 129/66 (87) 96 11/18/19 04:00 97.7 66 21 126/62 (83) 94 11/18/19 00:00 99.9 74 21 137/74 (95) 95 11/17/19 21:00 Room Air 11/17/19 20:00 101.5 77 21 130/61 (84) 92 11/17/19 15:37 99.9 66 20 134/63 (86) 97 I&O Intake and Output 11/17/19 11/18/19 19:00 07:00 Intake Total 900 ml 855 ml Output Total 1300 ml 1200 ml Balance -400 ml -345 ml Intake Oral 30 ml IV Total 900 ml 825 ml Output Urine Total 450 ml Gastric Drainage Total 1300 ml 750 ml # Voids 3 Cardiovascular: RSR Respiratory: clear Abdomen: soft, non-tender, present bowel sounds, non-distended Extremities: no tenderness, no cyanosis Laboratory Tests Test 11/18/19 05:05 White Blood Count 9.1 K/UL (4.8-10.8) Red Blood Count 4.04 M/UL (4.70-6.10) L Hemoglobin 12.8 G/DL (14.2-18.0) L Hematocrit 35.4 % (42.0-52.0) L Mean Corpuscular Volume 87 FL (80-99) Mean Corpuscular Hemoglobin 31.7 PG (27.0-31.0) H Mean Corpuscular Hemoglobin Concent 36.2 G/DL (32.0-36.0) H Red Cell Distribution Width 11.1 % (11.6-14.8) L Platelet Count 128 K/UL (150-450) L Mean Platelet Volume 7.9 FL (6.5-10.1) Neutrophils (%) (Auto) 69.5 % (45.0-75.0) Lymphocytes (%) (Auto) 12.6 % (20.0-45.0) L Monocytes (%) (Auto) 16.7 % (1.0-10.0) H Eosinophils (%) (Auto) 0.3 % (0.0-3.0) Basophils (%) (Auto) 0.9 % (0.0-2.0) Sodium Level 136 MMOL/L (136-145) Potassium Level 3.3 MMOL/L (3.5-5.1) L Chloride Level 99 MMOL/L (98-107) Carbon Dioxide Level 22 MMOL/L (21-32) Anion Gap 15 mmol/L (5-15) Blood Urea Nitrogen 9 mg/dL (7-18) Creatinine 0.6 MG/DL (0.55-1.30) Estimat Glomerular Filtration Rate > 60 mL/min (>60) Glucose Level 123 MG/DL (74-106) H Calcium Level 8.9 MG/DL (8.5-10.1) Total Bilirubin 0.8 MG/DL (0.2-1.0) Aspartate Amino Transf (AST/SGOT) 12 U/L (15-37) L Alanine Aminotransferase (ALT/SGPT) 16 U/L (12-78) Alkaline Phosphatase 64 U/L (46-116) Total Protein 6.7 G/DL (6.4-8.2) Albumin 2.8 G/DL (3.4-5.0) L Globulin 3.9 g/dL Albumin/Globulin Ratio 0.7 (1.0-2.7) L Plan Problems: (1) Small bowel obstruction Assessment & Plan: SBO likely from adhesions as large prior midline midline large incisional ventral hernia reducible no n/v/f/c currently no flatus yet no bowel function returned yet ng in place. bilious gastric output non tender abd with decrease bowel sounds will attempt non operative management. if improves and returns bowel function with bowel reset and decompression npo iv fluids ng tube to low intermittent suction serial abd exam if not improved soon will need to explore discussed with patient in length at bedside thank you will follow with recs kub noted still dilated bowel but abd exam stable cont with conservative management npo, ng tube will follow plan for gi contrast study today if contrast without obstruction d/c ng tube and start diet Prominence of the wall of the distal esophagus may represent esophagitis. Stomach is distended with ingested material, fluid, and gas. Dilated fluid and gas-filled small bowel loops with transition point in the right mid abdomen, concerning for small bowel obstruction. Small amount of ascites. Normal appendix. No hydronephrosis or obstructing stone. Fluid within a right inguinal hernia. Fat within a left inguinal hernia. Atherosclerotic changes of the vasculature. No aortic aneurysm or dissection. Mild prominence of the bladder wall is likely secondary to under distention. Please correlate with urinalysis if concerned for cystitis. Alonso Ivan Nov 18, 2019 14:22
--- NOTE | 2019-11-18 14:50 | NUR ---
NURSE NOTES: Received patient in bed. In no apparent distress. On room air. No respiratory distress. Awake, alert. Denies any pain. Droplet isolation observed. Will continue plan of care. Belongings reviewed and checked.
--- NOTE | 2019-11-18 15:05 | NUR ---
RADIOLOGY DEPT., SMALL BOWEL FOLLOW THROUGH COMPLETED.-P.DYE
--- NOTE | 2019-11-18 15:12 | NUR ---
NURSE NOTES: Seen and evaluated by and removed NG tube. Also, received new diet order. Order noted and carried out. Transferred patient to [facility] and given report to Ruchi LEON. Patient in stable condition. Belonging checked with RN.
--- NOTE | 2019-11-18 15:59 | Diagnostic Imaging Report ---
Indication: CT showing small bowel obstruction. Follow-up COMPARISON: None FINDINGS: Small bowel series was performed utilizing water-soluble contrast material. Serial films were obtained. Water-soluble contrast was administered. By one hour, there is contrast material in the colon indicating normal transit. Small bowel caliber appears normal. IMPRESSION: Normal small bowel series. No evidence of bowel obstruction.
[2019-11-18 16:00] VITALS: BP 146/79
--- NOTE | 2019-11-18 18:33 | Internal Med Progress Note ---
Subjective Date of Service: Nov 18, 2019 Physician Name Thomson,Giovani Attending Physician Ji Turcios MD Current Medications Medications (Trade) Dose Ordered Sig/Hortensia Route PRN Reason Start Time Stop Time Status Last Admin Dose Admin Acetaminophen (Tylenol) 650 mg Q4H PRN ORAL fever 11/14/19 22:00 12/14/19 21:59 11/17/19 00:38 Ceftriaxone Sodium 1 gm/ Dextrose 55 ml @ 110 mls/hr Q24H IVPB 11/18/19 11:00 11/25/19 10:59 11/18/19 12:03 Dextrose (Dextrose 50%) 25 ml Q30M PRN IV Hypoglycemia 11/14/19 22:00 02/12/20 21:59 Dextrose (Dextrose 50%) 50 ml Q30M PRN IV Hypoglycemia 11/14/19 22:00 02/12/20 21:59 Dextrose/Sodium Chloride 1,000 ml @ 75 mls/hr [id number] IV 11/14/19 21:57 12/14/19 21:56 11/18/19 04:32 Diphenhydramine HCl (Benadryl) 25 mg Q6H PRN ORAL Itching/Pruritis 11/14/19 22:00 12/14/19 21:59 Heparin Sodium (Porcine) (Heparin 5000 units/ml) 5,000 units EVERY 12 HOURS SUBQ 11/15/19 09:00 12/30/19 08:59 11/18/19 09:44 Metoclopramide HCl (Reglan) 10 mg EVERY 6 HOURS PRN IVP servere nauasea 11/14/19 22:00 12/14/19 21:59 Metronidazole 100 ml @ 100 mls/hr Q8HR IVPB 11/18/19 14:00 11/25/19 13:59 11/18/19 14:19 Nitroglycerin (Ntg) 0.4 mg Q5M X 3 DOSES PRN SL Prn Chest Pain 11/14/19 22:00 12/14/19 21:59 Ondansetron HCl (Zofran) 4 mg Q6H PRN IVP Nausea & Vomiting 11/14/19 22:00 12/14/19 21:59 Pantoprazole (Protonix) 40 mg DAILY IV 11/15/19 09:00 12/15/19 08:59 11/18/19 09:38 Polyethylene Glycol (Miralax) 17 gm HSPRN PRN ORAL Constipation 11/14/19 22:00 12/14/19 21:59 Temazepam (Restoril) 15 mg HSPRN PRN ORAL Insomnia 11/14/19 22:30 11/21/19 22:29 Allergies: Coded Allergies: CHLORPROMAZINE (Unverified Allergy, Unknown, 11/14/19) ROS Limited/Unobtainable: No Constitutional: Reports: no symptoms HEENT: Reports: no symptoms Cardiovascular: Reports: no symptoms Respiratory: Reports: no symptoms Gastrointestinal/Abdominal: Reports: abdomen distended, abdominal pain Genitourinary: Reports: no symptoms Neurologic/Psychiatric: Reports: no symptoms Subjective 64 YO M admitted with abdominal pain, nausea and vomiting. Now small bowel obstruction. Cover for Int Med-DR Turcios. [facility] Objective Last Vital Signs Date Time Temp Pulse Resp B/P (MAP) Pulse Ox O2 Delivery O2 Flow Rate FiO2 11/18/19 16:00 97.9 72 18 146/79 (101) 95 11/18/19 16:00 Room Air Laboratory Tests Test 11/18/19 05:05 11/18/19 15:50 White Blood Count 9.1 K/UL (4.8-10.8) Red Blood Count 4.04 M/UL (4.70-6.10) L Hemoglobin 12.8 G/DL (14.2-18.0) L Hematocrit 35.4 % (42.0-52.0) L Mean Corpuscular Volume 87 FL (80-99) Mean Corpuscular Hemoglobin 31.7 PG (27.0-31.0) H Mean Corpuscular Hemoglobin Concent 36.2 G/DL (32.0-36.0) H Red Cell Distribution Width 11.1 % (11.6-14.8) L Platelet Count 128 K/UL (150-450) L Mean Platelet Volume 7.9 FL (6.5-10.1) Neutrophils (%) (Auto) 69.5 % (45.0-75.0) Lymphocytes (%) (Auto) 12.6 % (20.0-45.0) L Monocytes (%) (Auto) 16.7 % (1.0-10.0) H Eosinophils (%) (Auto) 0.3 % (0.0-3.0) Basophils (%) (Auto) 0.9 % (0.0-2.0) Sodium Level 136 MMOL/L (136-145) Potassium Level 3.3 MMOL/L (3.5-5.1) L Chloride Level 99 MMOL/L (98-107) Carbon Dioxide Level 22 MMOL/L (21-32) Anion Gap 15 mmol/L (5-15) Blood Urea Nitrogen 9 mg/dL (7-18) Creatinine 0.6 MG/DL (0.55-1.30) Estimat Glomerular Filtration Rate > 60 mL/min (>60) Glucose Level 123 MG/DL (74-106) H Calcium Level 8.9 MG/DL (8.5-10.1) Total Bilirubin 0.8 MG/DL (0.2-1.0) Aspartate Amino Transf (AST/SGOT) 12 U/L (15-37) L Alanine Aminotransferase (ALT/SGPT) 16 U/L (12-78) Alkaline Phosphatase 64 U/L (46-116) Total Protein 6.7 G/DL (6.4-8.2) Albumin 2.8 G/DL (3.4-5.0) L Globulin 3.9 g/dL Albumin/Globulin Ratio 0.7 (1.0-2.7) L Stool Occult Blood Pending Microbiology Date/Time Source Procedure Growth Status 11/18/19 13:30 Nasal Nares - Final Complete 11/18/19 13:30 Nasal Nares - Final Complete Intake and Output 11/17/19 11/18/19 19:00 07:00 Intake Total 900 ml 855 ml Output Total 1300 ml 1200 ml Balance -400 ml -345 ml Intake Oral 30 ml IV Total 900 ml 825 ml Output Urine Total 450 ml Gastric Drainage Total 1300 ml 750 ml # Voids 3 Objective PHYSICAL EXAMINATION: GENERAL: The patient is awake, responsive, in no acute distress. HEAD AND NECK: Pupils are equal and reactive to light. Extraocular movements intact. Neck was supple. No JVD. NG tube discontinued LUNGS: Good air entry. No wheezing or rales. HEART: S1, S2. Regular rhythm. No murmur or gallops. ABDOMEN: Soft, nondistended, mildly obese. Ventral hernia was noted in the mid abdomen area over the surgical incision scar area. EXTREMITIES: No cyanosis, clubbing, or edema. NEUROLOGIC: Cranial nerves II through XII grossly intact. Motor is 5/5 in all extremities. The patient is moving all the extremities spontaneously. RECTAL/GENITOURINARY: Refused and deferred. PSYCHIATRIC: Mood and affect are intact. Assessment/Plan Assessment/Plan ASSESSMENT: 1. Abdominal pain/small bowel obstruction. 2. Dehydration. 3. Nausea, vomiting, and diarrhea. 4. Prior history of abdominal surgery. 5. Hypertension. 6. Coronary artery disease with prior myocardial infarction. 7. History of CVA. PLAN: 1. Admit the patient to the surgical unit. 2. pulmonary consultation = Dr. Garcia as well as 3. surgical consult= Dr. Ivan. 4. NG tube discontinued by surgery=DR Ivan 5. Clear liquid diet; IV hydration, 6. DVT prophylaxis,heparin subcutaneous. Giovani Thomson MD Nov 18, 2019 18:33
--- NOTE | 2019-11-18 19:30 | NUR ---
HAND-OFF: Report given to Peña SAMPSON RN.
[2019-11-18] MEDS ORDERED: Nitroglycerin Subl 0.4mg tab SL PRN (19:45)
--- NOTE | 2019-11-18 19:54 | NUR ---
NURSE NOTES: Received patient and report from EDWARD Hopper. Patient is observed resting in bed and remains alert and oriented x3-4. No pain noted upon assessment. Pt is on RA with no s/sx of acute distress. Pt noted to be SR on tele monitor with a current HR of 69 with no s/sx of acute distress. R hand 22g IV catheter noted which remains asymptomatic, patent and intact. IV ABX currently infusing. Diagnostics reviewed. Pt remains resting in bed; Bed remains in the lowest position with the safety wheels engaged, call light within reach, side rails up x3 and bed alarm activated. Will continue plan of care. Will continue to monitor.
[2019-11-18 20:00] VITALS: BP 105/55
[2019-11-18] MEDS ORDERED: DiphenhydrAMINE 25mg Tab ORAL PRN (20:01)
[2019-11-18] MEDS ORDERED: Miralax 17gm pkt ORAL PRN (21:00)
--- NOTE | 2019-11-18 21:00 | NUR ---
NURSE NOTES: Heparin held due to platelet count of 128 and red smear noted after BM. OB stool pending. Will continue to monitor. No other s/sx of active bleeding noted.
--- NOTE | 2019-11-18 21:17 | NUR ---
NURSE NOTES: Administered D5 1/2NS as prescribed after securing IV site. Pt accidentally dislodged dressing. IV site remains asymptomatic, intact and patent. New dressing placed which remains clean, dry and intact. Will continue to monitor.
--- NOTE | 2019-11-18 23:35 | NUR ---
NURSE NOTES: Pt provided with a bed bath, oral care and linen change. Pt tolerated care well. Large liquid bowel movement noted. BM noted to be yellow-brown in color. Pt reports relief of abdominal cramping. Pt remains clean and dry. Pt remains resting in bed; Bed remains in the lowest position with the safety wheels engaged, call light within reach, side rails up x3 and bed alarm activated. Will continue plan of care. Will continue to monitor.
[2019-11-19] VITALS: BP 126/63
[2019-11-19] MEDS ORDERED: Metoclopramide 10mg/2ml Inj IVP PRN
[2019-11-19 04:00] VITALS: BP 128/70
--- NOTE | 2019-11-19 05:57 | NUR ---
NURSE NOTES: Pt provided with a bed bath, oral care and linen change. Pt tolerated care well. Large liquid bowel movement noted. BM noted to be yellow/brown in color. Pt remains clean and dry. Pt remains resting in bed; Bed remains in the lowest position with the safety wheels engaged, call light within reach, side rails up x3 and bed alarm activated. Will continue plan of care. Will continue to monitor.
--- NOTE | 2019-11-19 06:56 | NUR ---
NURSE NOTES: Chantel from lab called and stated BG results 1084- redraw ordered will check bedside BG
--- NOTE | 2019-11-19 07:00 | NUR ---
NURSE NOTES: Bedside blood glucose result 97. Pt asymptomatic. Will wait fro redraw.
[2019-11-19 07:06] LABS: BASOPHILS % (AUTO) 0.8 % (0.0-2.0); EOSINOPHILS % (AUTO) 3.8 % (0.0-3.0); HEMATOCRIT 30.2 % (42.0-52.0); LYMPHOCYTES % (AUTO) 21.8 % (20.0-45.0); MEAN CORPUSCULAR VOLUME 96 FL (80-99); MONOCYTES % (AUTO) 13.4 % (1.0-10.0); NEUTROPHILS % (AUTO) 60.3 % (45.0-75.0); PLATELET COUNT 125 K/UL (150-450); RED BLOOD COUNT 3.15 M/UL (4.70-6.10); RED CELL DISTRIBUTION WIDTH 12.5 % (11.6-14.8); WHITE BLOOD COUNT 6.1 K/UL (4.8-10.8)
--- NOTE | 2019-11-19 07:14 | NUR ---
HAND-OFF: Report given to EDWARD Hopper. Pt remains stable at this time.
[2019-11-19 08:00] VITALS: BP 120/71
--- NOTE | 2019-11-19 08:41 | NUR ---
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 He wants to be notified of pt's DC/transfer.
--- NOTE | 2019-11-19 08:42 | NUR ---
NOTIFY DC/TRANSFER TO ASYA RIVERA [phone] (ADMIN OF [facility])
[2019-11-19] MEDS: Heparin 5000 units/ml inj SUBQ SCH ×2 (09:00→21:37)
[2019-11-19] MEDS: D5 1/2NS 1,000 ML IV SCH ×2 (09:15→23:10)
[2019-11-19] MEDS: Pantoprazole Inj IV SCH (09:15)
--- NOTE | 2019-11-19 09:37 | Infectious Diseases Prog Note ---
Assessment/Plan Assessment/Plan 64yo gentleman with PMH HTN, DM, liver cirrhosis presents with abdominal pain, nausea, vomiting. Pt diagnosed with SBO on imaging. ID consulted for new onset fevers. Fever, SP Sepsis Normal leukocyte count with lymphopenia Nausea/Vomiting Cough CXR: Mild pulmonary vascular congestion. Cardiac silhouette is borderline enlarged. flu swab negative Unlikely SBP, trace ascites on US SBO 11/13 CT A/P: Small bowel obstruction with suspected transition point in the right mid abdomen. Some swirling is also noted within the mesentery and the possibility of internal hernia not excluded. Mild ascites noted. No free intraperitoneal air, pneumatosis intestinalis or portal venous gas noted at this time. Thickening of the wall the distal esophagus which may related to esophagitis. Fluid within a small right inguinal hernia. Small fat-containing left inguinal hernia. 11/15 KUB: Persistent diffuse distention of small bowel loops with maximum diameter of 3.5 cm. HTN DM Liver Cirrhosis Plan: Ceftriaxone and flagyl #2 for GI awais COVID 19 rule out..~50% of pts with COVID can presents without fevers initially. while GI symptoms likely 2/2 SBO, GI symptoms have been reported as early symptoms of COVID. sputum culture isolation precaution monitor temp and CBC monitor resp status two sets of bcx DW RN Subjective Allergies: Coded Allergies: CHLORPROMAZINE (Unverified Allergy, Unknown, 11/14/19) Subjective Afebrile. RA. feels well. still with slight cough. abd pain better Objective Vital Signs Last 24 Hour Vital Signs Date Time Temp Pulse Resp B/P (MAP) Pulse Ox O2 Delivery O2 Flow Rate FiO2 11/19/19 04:00 Room Air 11/19/19 04:00 97.8 70 18 128/70 (89) 98 11/19/19 03:02 60 11/19/19 00:00 98.2 18 126/63 (84) 99 11/19/19 00:00 Room Air 11/18/19 23:03 58 11/18/19 21:00 Room Air 11/18/19 20:00 98.1 66 16 105/55 (72) 98 11/18/19 16:00 97.9 72 18 146/79 (101) 95 11/18/19 16:00 Room Air 11/18/19 12:00 98.6 60 18 123/62 (82) 94 Height (Feet): 5 Height (Inches): 9.00 Weight (Pounds): 195 Objective General Appearance: no apparent distress, alert Respiratory/Chest: normal breath sounds, no respiratory distress, no accessory muscle use Cardiovascular/Chest: normal rate, regular rhythm Abdomen: normal bowel sounds, non tender, soft Microbiology Date/Time Source Procedure Growth Status 11/18/19 13:30 Nasal Nares - Final Complete 11/18/19 13:30 Nasal Nares - Final Complete Laboratory Tests Test 11/18/19 15:50 11/19/19 04:30 Stool Occult Blood Pending White Blood Count 6.1 K/UL (4.8-10.8) Red Blood Count 3.15 M/UL (4.70-6.10) L Hemoglobin 10.0 G/DL (14.2-18.0) L Hematocrit 30.2 % (42.0-52.0) L Mean Corpuscular Volume 96 FL (80-99) # Mean Corpuscular Hemoglobin 31.7 PG (27.0-31.0) H Mean Corpuscular Hemoglobin Concent 33.1 G/DL (32.0-36.0) Red Cell Distribution Width 12.5 % (11.6-14.8) Platelet Count 125 K/UL (150-450) L Mean Platelet Volume 7.2 FL (6.5-10.1) Neutrophils (%) (Auto) 60.3 % (45.0-75.0) Lymphocytes (%) (Auto) 21.8 % (20.0-45.0) Monocytes (%) (Auto) 13.4 % (1.0-10.0) H Eosinophils (%) (Auto) 3.8 % (0.0-3.0) H Basophils (%) (Auto) 0.8 % (0.0-2.0) Hepatitis A IgM Antibody Pending Hepatitis B Surface Antigen Pending Hepatitis B Core IgM Antibody Pending Hepatitis C Antibody Pending Current Medications Medications (Trade) Dose Ordered Sig/Hortensia Route PRN Reason Start Time Stop Time Status Last Admin Dose Admin Acetaminophen (Tylenol) 650 mg Q4H PRN ORAL fever 11/18/19 19:59 12/14/19 19:58 Ceftriaxone Sodium 1 gm/ Dextrose 55 ml @ 110 mls/hr Q24H IVPB 11/19/19 11:00 11/25/19 10:59 Dextrose (Dextrose 50%) 25 ml Q30M PRN IV Hypoglycemia 11/18/19 20:00 02/12/20 21:59 Dextrose (Dextrose 50%) 50 ml Q30M PRN IV Hypoglycemia 11/18/19 20:00 02/12/20 21:59 Dextrose/Sodium Chloride 1,000 ml @ 75 mls/hr [id number] IV 11/18/19 20:00 12/14/19 19:59 11/19/19 09:15 Diphenhydramine HCl (Benadryl) 25 mg Q6H PRN ORAL Itching/Pruritis 11/18/19 20:01 12/14/19 20:00 Heparin Sodium (Porcine) (Heparin 5000 units/ml) 5,000 units EVERY 12 HOURS SUBQ 11/18/19 21:00 12/30/19 08:59 Metoclopramide HCl (Reglan) 10 mg EVERY 6 HOURS PRN IVP servere nauasea 11/19/19 00:00 12/14/19 21:59 Metronidazole 100 ml @ 100 mls/hr Q8HR IVPB 11/18/19 22:00 11/25/19 13:59 11/19/19 05:07 Nitroglycerin (Ntg) 0.4 mg Q5M X 3 DOSES PRN SL Prn Chest Pain 11/18/19 19:45 12/14/19 21:59 Ondansetron HCl (Zofran) 4 mg Q6H PRN IVP Nausea & Vomiting 11/18/19 22:00 12/14/19 21:59 Pantoprazole (Protonix) 40 mg DAILY IV 11/19/19 09:00 12/15/19 08:59 11/19/19 09:15 Polyethylene Glycol (Miralax) 17 gm HSPRN PRN ORAL Constipation 11/18/19 21:00 12/14/19 20:59 Temazepam (Restoril) 15 mg HSPRN PRN ORAL Insomnia 11/18/19 21:00 11/21/19 20:59 Zach Moreau MD Nov 19, 2019 09:37
--- NOTE | 2019-11-19 09:49 | NUR ---
RD ASSESSMENT & RECOMMENDATIONS SEE CARE ACTIVITY FOR COMPLETE ASSESSMENT DAILY ESTIMATED NEEDS: Needs based on Cardiac, pulmonary 76.7kg abw 25-30 kcals/kg 6250-4887 total kcals 1-1.5 g protein/kg 77-115 g total protein 25-30 mL/kg 6382-3876 total fluid mLs NUTRITION DIAGNOSIS: Altered GI function r/t bowel obstruction as evidenced by abd CT, CLD from adm w/ NGT to suction, now diet advanced to CLD. CURRENT DIET: CLD PO DIET RECOMMENDATIONS: Advance as tolerated-> Soft diet (texture as tolerated) ADDITIONAL RECOMMENDATIONS: 1) Add ensure Clear w/ CLD 2) Obtain a calibrated bed scale wt as able 3) Monitor lytes daily, replete as needed
--- NOTE | 2019-11-19 10:46 | Pulmonology Progress Note ---
Assessment/Plan Problems: (1) Small bowel obstruction (2) Nausea, vomiting, and diarrhea (3) History of abdominal surgery Assessment/Plan improving still NPO NG tube still in place KUB ordered for am check electrolytes Subjective Interval Events: late note for 11/17, doing better, Still on NG tube Allergies: Coded Allergies: CHLORPROMAZINE (Unverified Allergy, Unknown, 11/14/19) Objective Last 24 Hour Vital Signs Date Time Temp Pulse Resp B/P (MAP) Pulse Ox O2 Delivery O2 Flow Rate FiO2 11/19/19 08:00 Room Air 11/19/19 08:00 98.1 72 19 120/71 (87) 95 11/19/19 04:00 Room Air 11/19/19 04:00 97.8 70 18 128/70 (89) 98 11/19/19 03:02 60 11/19/19 00:00 98.2 18 126/63 (84) 99 11/19/19 00:00 Room Air 11/18/19 23:03 58 11/18/19 21:00 Room Air 11/18/19 20:00 98.1 66 16 105/55 (72) 98 11/18/19 16:00 97.9 72 18 146/79 (101) 95 11/18/19 16:00 Room Air 11/18/19 12:00 98.6 60 18 123/62 (82) 94 Intake and Output 11/18/19 11/19/19 19:00 07:00 Intake Total 575 ml 900.00 ml Balance 575 ml 900.00 ml Intake Oral 120 ml 120 ml IV Total 455 ml 780.00 ml # Voids 2 3 # Bowel Movements 2 3 Objective General Appearance: WD/WN HEENT: normocephalic Respiratory/Chest: chest wall non-tender, lungs clear Cardiovascular: normal rate, regular rhythm Abdomen: normal bowel sounds, no organomegaly Extremities: no cyanosis Skin: no ulcers 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 Microbiology Date/Time Source Procedure Growth Status 11/18/19 13:30 Nasal Nares - Final Complete 11/18/19 13:30 Nasal Nares - Final Complete Laboratory Tests 11/18/19 15:50: Stool Occult Blood [Pending] 11/19/19 04:30: White Blood Count 6.1, Red Blood Count 3.15L, Hemoglobin 10.0L, Hematocrit 30.2L , Mean Corpuscular Volume 96#, Mean Corpuscular Hemoglobin 31.7H, Mean Corpuscular Hemoglobin Concent 33.1, Red Cell Distribution Width 12.5, Platelet Count 125L, Mean Platelet Volume 7.2, Neutrophils (%) (Auto) 60.3, Lymphocytes ( %) (Auto) 21.8, Monocytes (%) (Auto) 13.4H, Eosinophils (%) (Auto) 3.8H, Basophils (%) (Auto) 0.8, Hepatitis A IgM Antibody [Pending], Hepatitis B Surface Antigen [Pending], Hepatitis B Core IgM Antibody [Pending], Hepatitis C Antibody [Pending] 11/19/19 10:20: Sodium Level [Pending], Potassium Level [Pending], Chloride Level [Pending], Carbon Dioxide Level [Pending], Blood Urea Nitrogen [Pending], Creatinine [ Pending], Estimat Glomerular Filtration Rate [Pending], Glucose Level [Pending] , Calcium Level [Pending], Total Bilirubin [Pending], Aspartate Amino Transf ( AST/SGOT) [Pending], Alanine Aminotransferase (ALT/SGPT) [Pending], Alkaline Phosphatase [Pending], Total Protein [Pending], Albumin [Pending], Globulin [ Pending] Current Medications Medications (Trade) Dose Ordered Sig/Hortensia Route PRN Reason Start Time Stop Time Status Last Admin Dose Admin Acetaminophen (Tylenol) 650 mg Q4H PRN ORAL fever 11/18/19 19:59 12/14/19 19:58 Ceftriaxone Sodium 1 gm/ Dextrose 55 ml @ 110 mls/hr Q24H IVPB 11/19/19 11:00 11/25/19 10:59 Dextrose (Dextrose 50%) 25 ml Q30M PRN IV Hypoglycemia 11/18/19 20:00 02/12/20 21:59 Dextrose (Dextrose 50%) 50 ml Q30M PRN IV Hypoglycemia 11/18/19 20:00 02/12/20 21:59 Dextrose/Sodium Chloride 1,000 ml @ 75 mls/hr [id number] IV 11/18/19 20:00 12/14/19 19:59 11/19/19 09:15 Diphenhydramine HCl (Benadryl) 25 mg Q6H PRN ORAL Itching/Pruritis 11/18/19 20:01 12/14/19 20:00 Heparin Sodium (Porcine) (Heparin 5000 units/ml) 5,000 units EVERY 12 HOURS SUBQ 11/18/19 21:00 12/30/19 08:59 Metoclopramide HCl (Reglan) 10 mg EVERY 6 HOURS PRN IVP servere nauasea 11/19/19 00:00 12/14/19 21:59 Metronidazole 100 ml @ 100 mls/hr Q8HR IVPB 11/18/19 22:00 11/25/19 13:59 11/19/19 05:07 Nitroglycerin (Ntg) 0.4 mg Q5M X 3 DOSES PRN SL Prn Chest Pain 11/18/19 19:45 12/14/19 21:59 Ondansetron HCl (Zofran) 4 mg Q6H PRN IVP Nausea & Vomiting 11/18/19 22:00 12/14/19 21:59 Pantoprazole (Protonix) 40 mg DAILY IV 11/19/19 09:00 12/15/19 08:59 11/19/19 09:15 Polyethylene Glycol (Miralax) 17 gm HSPRN PRN ORAL Constipation 11/18/19 21:00 12/14/19 20:59 Temazepam (Restoril) 15 mg HSPRN PRN ORAL Insomnia 11/18/19 21:00 11/21/19 20:59 Zacarias Garcia MD Nov 19, 2019 10:46
--- NOTE | 2019-11-19 10:48 | Pulmonology Progress Note ---
Assessment/Plan Problems: (1) Small bowel obstruction (2) Nausea, vomiting, and diarrhea (3) History of abdominal surgery Assessment/Plan put in isolation to rule out Vazquez virus still NPO f/u by surgery improving symptomatic treatment dvt prophylaxis. Subjective ROS Limited/Unobtainable: No Constitutional: Reports: no symptoms HEENT: Repors: no symptoms Respiratory: Reports: no symptoms Allergies: Coded Allergies: CHLORPROMAZINE (Unverified Allergy, Unknown, 11/14/19) Objective Last 24 Hour Vital Signs Date Time Temp Pulse Resp B/P (MAP) Pulse Ox O2 Delivery O2 Flow Rate FiO2 11/19/19 08:00 Room Air 11/19/19 08:00 98.1 72 19 120/71 (87) 95 11/19/19 04:00 Room Air 11/19/19 04:00 97.8 70 18 128/70 (89) 98 11/19/19 03:02 60 11/19/19 00:00 98.2 18 126/63 (84) 99 11/19/19 00:00 Room Air 11/18/19 23:03 58 11/18/19 21:00 Room Air 11/18/19 20:00 98.1 66 16 105/55 (72) 98 11/18/19 16:00 97.9 72 18 146/79 (101) 95 11/18/19 16:00 Room Air 11/18/19 12:00 98.6 60 18 123/62 (82) 94 Intake and Output 11/18/19 11/19/19 19:00 07:00 Intake Total 575 ml 900.00 ml Balance 575 ml 900.00 ml Intake Oral 120 ml 120 ml IV Total 455 ml 780.00 ml # Voids 2 3 # Bowel Movements 2 3 Objective General Appearance: WD/WN HEENT: normocephalic Respiratory/Chest: chest wall non-tender, lungs clear Cardiovascular: normal rate, regular rhythm Abdomen: normal bowel sounds, no organomegaly Extremities: no cyanosis Skin: no ulcers 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 Microbiology Date/Time Source Procedure Growth Status 11/18/19 13:30 Nasal Nares - Final Complete 11/18/19 13:30 Nasal Nares - Final Complete Laboratory Tests 11/18/19 15:50: Stool Occult Blood [Pending] 11/19/19 04:30: White Blood Count 6.1, Red Blood Count 3.15L, Hemoglobin 10.0L, Hematocrit 30.2L , Mean Corpuscular Volume 96#, Mean Corpuscular Hemoglobin 31.7H, Mean Corpuscular Hemoglobin Concent 33.1, Red Cell Distribution Width 12.5, Platelet Count 125L, Mean Platelet Volume 7.2, Neutrophils (%) (Auto) 60.3, Lymphocytes ( %) (Auto) 21.8, Monocytes (%) (Auto) 13.4H, Eosinophils (%) (Auto) 3.8H, Basophils (%) (Auto) 0.8, Hepatitis A IgM Antibody [Pending], Hepatitis B Surface Antigen [Pending], Hepatitis B Core IgM Antibody [Pending], Hepatitis C Antibody [Pending] 11/19/19 10:20: Sodium Level [Pending], Potassium Level [Pending], Chloride Level [Pending], Carbon Dioxide Level [Pending], Blood Urea Nitrogen [Pending], Creatinine [ Pending], Estimat Glomerular Filtration Rate [Pending], Glucose Level [Pending] , Calcium Level [Pending], Total Bilirubin [Pending], Aspartate Amino Transf ( AST/SGOT) [Pending], Alanine Aminotransferase (ALT/SGPT) [Pending], Alkaline Phosphatase [Pending], Total Protein [Pending], Albumin [Pending], Globulin [ Pending] Current Medications Medications (Trade) Dose Ordered Sig/Hortensia Route PRN Reason Start Time Stop Time Status Last Admin Dose Admin Acetaminophen (Tylenol) 650 mg Q4H PRN ORAL fever 11/18/19 19:59 12/14/19 19:58 Ceftriaxone Sodium 1 gm/ Dextrose 55 ml @ 110 mls/hr Q24H IVPB 11/19/19 11:00 11/25/19 10:59 Dextrose (Dextrose 50%) 25 ml Q30M PRN IV Hypoglycemia 11/18/19 20:00 02/12/20 21:59 Dextrose (Dextrose 50%) 50 ml Q30M PRN IV Hypoglycemia 11/18/19 20:00 02/12/20 21:59 Dextrose/Sodium Chloride 1,000 ml @ 75 mls/hr [id number] IV 11/18/19 20:00 12/14/19 19:59 11/19/19 09:15 Diphenhydramine HCl (Benadryl) 25 mg Q6H PRN ORAL Itching/Pruritis 11/18/19 20:01 12/14/19 20:00 Heparin Sodium (Porcine) (Heparin 5000 units/ml) 5,000 units EVERY 12 HOURS SUBQ 11/18/19 21:00 12/30/19 08:59 Metoclopramide HCl (Reglan) 10 mg EVERY 6 HOURS PRN IVP servere nauasea 11/19/19 00:00 12/14/19 21:59 Metronidazole 100 ml @ 100 mls/hr Q8HR IVPB 11/18/19 22:00 11/25/19 13:59 11/19/19 05:07 Nitroglycerin (Ntg) 0.4 mg Q5M X 3 DOSES PRN SL Prn Chest Pain 11/18/19 19:45 12/14/19 21:59 Ondansetron HCl (Zofran) 4 mg Q6H PRN IVP Nausea & Vomiting 11/18/19 22:00 12/14/19 21:59 Pantoprazole (Protonix) 40 mg DAILY IV 11/19/19 09:00 12/15/19 08:59 11/19/19 09:15 Polyethylene Glycol (Miralax) 17 gm HSPRN PRN ORAL Constipation 11/18/19 21:00 12/14/19 20:59 Temazepam (Restoril) 15 mg HSPRN PRN ORAL Insomnia 11/18/19 21:00 11/21/19 20:59 Zacarias Garcia MD Nov 19, 2019 10:48
[2019-11-19 10:51] LABS: ANION GAP 12 mmol/L (5-15); BLOOD UREA NITROGEN 14 mg/dL (7-18); CARBON DIOXIDE 24 MMOL/L (21-32); CHLORIDE 101 MMOL/L (98-107); CREATININE 0.6 MG/DL (0.55-1.30); POTASSIUM 3.6 MMOL/L (3.5-5.1); SODIUM 137 MMOL/L (136-145)
[2019-11-19 10:54] LABS: ALANINE AMINOTRANSFERASE 32 U/L (12-78); ALBUMIN 2.9 G/DL (3.4-5.0); ALBUMIN/GLOBULIN RATIO 0.7 (1.0-2.7); ALKALINE PHOSPHATASE 82 U/L (46-116); ASPARTATE AMINO TRANSFERASE 25 U/L (15-37); BILIRUBIN,TOTAL 0.4 MG/DL (0.2-1.0)
[2019-11-19] MEDS ORDERED: cefTRIAXone 1 GM in D5W 55 ML IVPB SCH ×2 (11:00→14:00)
--- NOTE | 2019-11-19 11:14 | General Progress Note ---
Assessment/Plan Problem List: (1) Cirrhosis ICD Codes: K74.60 - Unspecified cirrhosis of liver SNOMED: 28217430 (2) Ascites ICD Codes: R18.8 - Other ascites SNOMED: 815054388 (3) Esophagitis ICD Codes: K20.9 - Esophagitis, unspecified SNOMED: 44752818 (4) Nausea, vomiting, and diarrhea ICD Codes: R11.2 - Nausea with vomiting, unspecified; R19.7 - Diarrhea, unspecified SNOMED: 0006126 (5) Fever ICD Codes: R50.9 - Fever, unspecified SNOMED: 362734412 (6) Small bowel obstruction ICD Codes: K56.609 - Unspecified intestinal obstruction, unspecified as to partial versus complete obstruction SNOMED: 296824683 (7) History of abdominal surgery ICD Codes: Z98.890 - Other specified postprocedural states SNOMED: 072574076, 963185032 Assessment/Plan: clear liquid diet and advance as tolerated fu SBFT>>> neg fu surg recs hepatitis panel ppi EGD when more stable now on COVET 19 isolation Subjective Allergies: Coded Allergies: CHLORPROMAZINE (Unverified Allergy, Unknown, 11/14/19) Objective Last 24 Hour Vital Signs Date Time Temp Pulse Resp B/P (MAP) Pulse Ox O2 Delivery O2 Flow Rate FiO2 11/19/19 08:00 Room Air 11/19/19 08:00 98.1 72 19 120/71 (87) 95 11/19/19 04:00 Room Air 11/19/19 04:00 97.8 70 18 128/70 (89) 98 11/19/19 03:02 60 11/19/19 00:00 98.2 18 126/63 (84) 99 11/19/19 00:00 Room Air 11/18/19 23:03 58 11/18/19 21:00 Room Air 11/18/19 20:00 98.1 66 16 105/55 (72) 98 11/18/19 16:00 97.9 72 18 146/79 (101) 95 11/18/19 16:00 Room Air 11/18/19 12:00 98.6 60 18 123/62 (82) 94 Intake and Output 11/18/19 11/19/19 19:00 07:00 Intake Total 575 ml 900.00 ml Balance 575 ml 900.00 ml Intake Oral 120 ml 120 ml IV Total 455 ml 780.00 ml # Voids 2 3 # Bowel Movements 2 3 Laboratory Tests 11/18/19 15:50: Stool Occult Blood [Pending] 11/19/19 04:30: White Blood Count 6.1, Red Blood Count 3.15L, Hemoglobin 10.0L, Hematocrit 30.2L , Mean Corpuscular Volume 96#, Mean Corpuscular Hemoglobin 31.7H, Mean Corpuscular Hemoglobin Concent 33.1, Red Cell Distribution Width 12.5, Platelet Count 125L, Mean Platelet Volume 7.2, Neutrophils (%) (Auto) 60.3, Lymphocytes ( %) (Auto) 21.8, Monocytes (%) (Auto) 13.4H, Eosinophils (%) (Auto) 3.8H, Basophils (%) (Auto) 0.8, Hepatitis A IgM Antibody [Pending], Hepatitis B Surface Antigen [Pending], Hepatitis B Core IgM Antibody [Pending], Hepatitis C Antibody [Pending] 11/19/19 10:20: Sodium Level 137, Potassium Level 3.6, Chloride Level 101, Carbon Dioxide Level 24, Anion Gap 12, Blood Urea Nitrogen 14, Creatinine 0.6, Estimat Glomerular Filtration Rate > 60, Glucose Level 112H, Calcium Level 9.0, Total Bilirubin 0.4 , Aspartate Amino Transf (AST/SGOT) 25, Alanine Aminotransferase (ALT/SGPT) 32, Alkaline Phosphatase 82, Total Protein 7.0, Albumin 2.9L, Globulin 4.1, Albumin/ Globulin Ratio 0.7L Height (Feet): 5 Height (Inches): 9.00 Weight (Pounds): 195 General Appearance: no apparent distress EENT: normal ENT inspection Neck: supple Cardiovascular: normal rate Respiratory/Chest: decreased breath sounds Abdomen: normal bowel sounds, non tender, soft Extremities: non-tender Dain Jules MD Nov 19, 2019 11:14
[2019-11-19 12:00] VITALS: BP 110/47
--- NOTE | 2019-11-19 12:24 | NUR ---
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 98.1 HR 72 RR 19 B/P 120/71 COVID-19 PENDING IS: CEFTRIAXONE IV FLAGYL IV IVF D5NS @ 75ML/HR ZOFRAN IV PROTONIX IV DROPLET ISOLATION STEP DOWN STATUS
--- NOTE | 2019-11-19 13:40 | NUR ---
*-* INSURANCE *-* ALL UPDATED REVIEWS HAVE BEEN FAXED TO: [facility] COORDINATOR: GRISELDA P: [phone] F: [phone]
--- NOTE | 2019-11-19 13:53 | Surgery Progress Note ---
Surgery Progress Note Subjective Symptoms: improved, pain absent, tolerating diet, voiding well, passing flatus , BM Objective Last 24 Hour Vital Signs Date Time Temp Pulse Resp B/P (MAP) Pulse Ox O2 Delivery O2 Flow Rate FiO2 11/19/19 12:00 98.2 59 19 110/47 (68) 96 11/19/19 12:00 Room Air 11/19/19 11:48 55 11/19/19 08:07 63 11/19/19 08:00 Room Air 11/19/19 08:00 98.1 72 19 120/71 (87) 95 11/19/19 04:00 Room Air 11/19/19 04:00 97.8 70 18 128/70 (89) 98 11/19/19 03:02 60 11/19/19 00:00 98.2 18 126/63 (84) 99 11/19/19 00:00 Room Air 11/18/19 23:03 58 11/18/19 21:00 Room Air 11/18/19 20:00 98.1 66 16 105/55 (72) 98 11/18/19 16:00 97.9 72 18 146/79 (101) 95 11/18/19 16:00 Room Air I&O Intake and Output 11/18/19 11/19/19 19:00 07:00 Intake Total 575 ml 900.00 ml Balance 575 ml 900.00 ml Intake Oral 120 ml 120 ml IV Total 455 ml 780.00 ml # Voids 2 3 # Bowel Movements 2 3 Cardiovascular: RSR Respiratory: clear Abdomen: soft, flat, non-tender, present bowel sounds, non-distended Extremities: no edema, no tenderness, no cyanosis Laboratory Tests Test 11/18/19 15:50 11/19/19 04:30 11/19/19 10:20 Stool Occult Blood Negative (NEGATIVE) White Blood Count 6.1 K/UL (4.8-10.8) Red Blood Count 3.15 M/UL (4.70-6.10) L Hemoglobin 10.0 G/DL (14.2-18.0) L Hematocrit 30.2 % (42.0-52.0) L Mean Corpuscular Volume 96 FL (80-99) # Mean Corpuscular Hemoglobin 31.7 PG (27.0-31.0) H Mean Corpuscular Hemoglobin Concent 33.1 G/DL (32.0-36.0) Red Cell Distribution Width 12.5 % (11.6-14.8) Platelet Count 125 K/UL (150-450) L Mean Platelet Volume 7.2 FL (6.5-10.1) Neutrophils (%) (Auto) 60.3 % (45.0-75.0) Lymphocytes (%) (Auto) 21.8 % (20.0-45.0) Monocytes (%) (Auto) 13.4 % (1.0-10.0) H Eosinophils (%) (Auto) 3.8 % (0.0-3.0) H Basophils (%) (Auto) 0.8 % (0.0-2.0) Hepatitis A IgM Antibody Pending Hepatitis B Surface Antigen Pending Hepatitis B Core IgM Antibody Pending Hepatitis C Antibody Pending Sodium Level 137 MMOL/L (136-145) Potassium Level 3.6 MMOL/L (3.5-5.1) Chloride Level 101 MMOL/L (98-107) Carbon Dioxide Level 24 MMOL/L (21-32) Anion Gap 12 mmol/L (5-15) Blood Urea Nitrogen 14 mg/dL (7-18) Creatinine 0.6 MG/DL (0.55-1.30) Estimat Glomerular Filtration Rate > 60 mL/min (>60) Glucose Level 112 MG/DL (74-106) H Calcium Level 9.0 MG/DL (8.5-10.1) Total Bilirubin 0.4 MG/DL (0.2-1.0) Aspartate Amino Transf (AST/SGOT) 25 U/L (15-37) Alanine Aminotransferase (ALT/SGPT) 32 U/L (12-78) Alkaline Phosphatase 82 U/L (46-116) Total Protein 7.0 G/DL (6.4-8.2) Albumin 2.9 G/DL (3.4-5.0) L Globulin 4.1 g/dL Albumin/Globulin Ratio 0.7 (1.0-2.7) L Plan Problems: (1) Small bowel obstruction Assessment & Plan: SBO likely from adhesions as large prior midline midline large incisional ventral hernia reducible no n/v/f/c currently no flatus yet no bowel function returned yet ng in place. bilious gastric output non tender abd with decrease bowel sounds will attempt non operative management. if improves and returns bowel function with bowel reset and decompression npo iv fluids ng tube to low intermittent suction serial abd exam if not improved soon will need to explore discussed with patient in length at bedside thank you will follow with recs kub noted still dilated bowel but abd exam stable cont with conservative management npo, ng tube will follow plan for gi contrast study today if contrast without obstruction d/c ng tube and start diet resolved bowel study okay tolerating diet +BM d/c planning Prominence of the wall of the distal esophagus may represent esophagitis. Stomach is distended with ingested material, fluid, and gas. Dilated fluid and gas-filled small bowel loops with transition point in the right mid abdomen, concerning for small bowel obstruction. Small amount of ascites. Normal appendix. No hydronephrosis or obstructing stone. Fluid within a right inguinal hernia. Fat within a left inguinal hernia. Atherosclerotic changes of the vasculature. No aortic aneurysm or dissection. Mild prominence of the bladder wall is likely secondary to under distention. Please correlate with urinalysis if concerned for cystitis. Alonso Ivan Nov 19, 2019 13:53
--- NOTE | 2019-11-19 15:58 | Internal Med Progress Note ---
Subjective Date of Service: Nov 19, 2019 Physician Name AlixGiovani Attending Physician Ji Turcios MD Current Medications Medications (Trade) Dose Ordered Sig/Hortensia Route PRN Reason Start Time Stop Time Status Last Admin Dose Admin Acetaminophen (Tylenol) 650 mg Q4H PRN ORAL fever 11/18/19 19:59 12/14/19 19:58 Ceftriaxone Sodium 1 gm/ Dextrose 55 ml @ 110 mls/hr Q24H IVPB 11/19/19 14:00 11/26/19 13:59 11/19/19 14:06 Dextrose (Dextrose 50%) 25 ml Q30M PRN IV Hypoglycemia 11/18/19 20:00 02/12/20 21:59 Dextrose (Dextrose 50%) 50 ml Q30M PRN IV Hypoglycemia 11/18/19 20:00 02/12/20 21:59 Dextrose/Sodium Chloride 1,000 ml @ 75 mls/hr [id number] IV 11/18/19 20:00 12/14/19 19:59 11/19/19 09:15 Diphenhydramine HCl (Benadryl) 25 mg Q6H PRN ORAL Itching/Pruritis 11/18/19 20:01 12/14/19 20:00 Heparin Sodium (Porcine) (Heparin 5000 units/ml) 5,000 units EVERY 12 HOURS SUBQ 11/18/19 21:00 12/30/19 08:59 Metoclopramide HCl (Reglan) 10 mg EVERY 6 HOURS PRN IVP servere nauasea 11/19/19 00:00 12/14/19 21:59 Metronidazole 100 ml @ 100 mls/hr Q8HR IVPB 11/19/19 15:07 11/26/19 15:06 11/19/19 15:34 Nitroglycerin (Ntg) 0.4 mg Q5M X 3 DOSES PRN SL Prn Chest Pain 11/18/19 19:45 12/14/19 21:59 Ondansetron HCl (Zofran) 4 mg Q6H PRN IVP Nausea & Vomiting 11/18/19 22:00 12/14/19 21:59 Pantoprazole (Protonix) 40 mg DAILY IV 11/19/19 09:00 12/15/19 08:59 11/19/19 09:15 Polyethylene Glycol (Miralax) 17 gm HSPRN PRN ORAL Constipation 11/18/19 21:00 12/14/19 20:59 Temazepam (Restoril) 15 mg HSPRN PRN ORAL Insomnia 11/18/19 21:00 11/21/19 20:59 Allergies: Coded Allergies: CHLORPROMAZINE (Unverified Allergy, Unknown, 11/14/19) ROS Limited/Unobtainable: No Constitutional: Reports: no symptoms HEENT: Reports: no symptoms Cardiovascular: Reports: no symptoms Respiratory: Reports: no symptoms Gastrointestinal/Abdominal: Reports: no symptoms Genitourinary: Reports: no symptoms Subjective 64 YO M admitted with abdominal pain, nausea and vomiting. Now small bowel obstruction. Cover for Int Med-DR Turcios. GERARD Objective Last Vital Signs Date Time Temp Pulse Resp B/P (MAP) Pulse Ox O2 Delivery O2 Flow Rate FiO2 11/19/19 12:00 98.2 59 19 110/47 (68) 96 11/19/19 12:00 Room Air Laboratory Tests Test 11/19/19 04:30 11/19/19 10:20 White Blood Count 6.1 K/UL (4.8-10.8) Red Blood Count 3.15 M/UL (4.70-6.10) L Hemoglobin 10.0 G/DL (14.2-18.0) L Hematocrit 30.2 % (42.0-52.0) L Mean Corpuscular Volume 96 FL (80-99) # Mean Corpuscular Hemoglobin 31.7 PG (27.0-31.0) H Mean Corpuscular Hemoglobin Concent 33.1 G/DL (32.0-36.0) Red Cell Distribution Width 12.5 % (11.6-14.8) Platelet Count 125 K/UL (150-450) L Mean Platelet Volume 7.2 FL (6.5-10.1) Neutrophils (%) (Auto) 60.3 % (45.0-75.0) Lymphocytes (%) (Auto) 21.8 % (20.0-45.0) Monocytes (%) (Auto) 13.4 % (1.0-10.0) H Eosinophils (%) (Auto) 3.8 % (0.0-3.0) H Basophils (%) (Auto) 0.8 % (0.0-2.0) Hepatitis A IgM Antibody Pending Hepatitis B Surface Antigen Pending Hepatitis B Core IgM Antibody Pending Hepatitis C Antibody Pending Sodium Level 137 MMOL/L (136-145) Potassium Level 3.6 MMOL/L (3.5-5.1) Chloride Level 101 MMOL/L (98-107) Carbon Dioxide Level 24 MMOL/L (21-32) Anion Gap 12 mmol/L (5-15) Blood Urea Nitrogen 14 mg/dL (7-18) Creatinine 0.6 MG/DL (0.55-1.30) Estimat Glomerular Filtration Rate > 60 mL/min (>60) Glucose Level 112 MG/DL (74-106) H Calcium Level 9.0 MG/DL (8.5-10.1) Total Bilirubin 0.4 MG/DL (0.2-1.0) Aspartate Amino Transf (AST/SGOT) 25 U/L (15-37) Alanine Aminotransferase (ALT/SGPT) 32 U/L (12-78) Alkaline Phosphatase 82 U/L (46-116) Total Protein 7.0 G/DL (6.4-8.2) Albumin 2.9 G/DL (3.4-5.0) L Globulin 4.1 g/dL Albumin/Globulin Ratio 0.7 (1.0-2.7) L Microbiology Date/Time Source Procedure Growth Status 11/19/19 04:45 Sputum Expectorated Gram Stain - Final Resulted 11/19/19 04:45 Sputum Expectorated Sputum Culture Pending Resulted 11/18/19 13:30 Nasal Nares - Final Complete 11/18/19 13:30 Nasal Nares - Final Complete Intake and Output 11/18/19 11/19/19 19:00 07:00 Intake Total 575 ml 900.00 ml Balance 575 ml 900.00 ml Intake Oral 120 ml 120 ml IV Total 455 ml 780.00 ml # Voids 2 3 # Bowel Movements 2 3 Objective PHYSICAL EXAMINATION: GENERAL: The patient is awake, responsive, in no acute distress. HEAD AND NECK: Pupils are equal and reactive to light. Extraocular movements intact. Neck was supple. No JVD. NG tube discontinued LUNGS: Good air entry. No wheezing or rales. HEART: S1, S2. Regular rhythm. No murmur or gallops. ABDOMEN: Soft, nondistended, mildly obese. Ventral hernia was noted in the mid abdomen area over the surgical incision scar area. EXTREMITIES: No cyanosis, clubbing, or edema. NEUROLOGIC: Cranial nerves II through XII grossly intact. Motor is 5/5 in all extremities. The patient is moving all the extremities spontaneously. RECTAL/GENITOURINARY: Refused and deferred. PSYCHIATRIC: Mood and affect are intact. Assessment/Plan Assessment/Plan ASSESSMENT: 1. Abdominal pain/small bowel obstruction. 2. Dehydration. 3. Nausea, vomiting, and diarrhea. 4. Prior history of abdominal surgery. 5. Hypertension. 6. Coronary artery disease with prior myocardial infarction. 7. History of CVA. PLAN: 1. Admit the patient to the surgical unit. 2. pulmonary consultation = Dr. Garcia as well as 3. surgical consult= Dr. Ivan. 4. 30 UGI with SBFT=normal; NG tube discontinued by surgery=DR Ivan 5. Clear liquid diet; IV hydration, 6. DVT prophylaxis,heparin subcutaneous. 7. Discharge planning Giovani Thomson MD Nov 19, 2019 15:58
[2019-11-19 16:00] VITALS: BP 108/51
--- NOTE | 2019-11-19 19:30 | NUR ---
HAND-OFF: Report given to Monet Sotomayor RN.
--- NOTE | 2019-11-19 19:40 | NUR ---
NURSE NOTES: Received pt from EDWARD Hopper. will continue plan of care.
[2019-11-19 20:00] VITALS: BP 108/51
--- NOTE | 2019-11-19 21:30 | NUR ---
NURSE NOTES: pt is observed sitting up in bed, AO X4, denies pain at this time. pt is on room air, tolerating well, saturation: 96%, no s/sx of respiratory distress noted. wet process assistant head miller shows SB with HR of 59; no acute cardiac distress noted. RH 22g IV site is patent and intact, running D5 1/2 NS at 75 cc/hr. bed in lowest position and locked, siderails up X3, call light within reach. will continue to monitor.
[2019-11-20] VITALS: BP 121/70
[2019-11-20 04:00] VITALS: BP 119/48
--- NOTE | 2019-11-20 07:54 | NUR ---
HAND-OFF: Report given to EDWARD Hopper and EDWARD PENALOZA. endorsed plan of care.
--- NOTE | 2019-11-20 07:55 | NUR ---
NURSE NOTES: Received patient in bed. Awake, alert, verbally responsive. Able to make needs known. In no apparent distress. call light within reach. Bed alarm in lowest position. Droplet isolation observed. Will continue plan of care.
[2019-11-20 08:00] VITALS: BP 121/59
--- NOTE | 2019-11-20 08:01 | General Progress Note ---
Assessment/Plan Problem List: (1) Cirrhosis ICD Codes: K74.60 - Unspecified cirrhosis of liver SNOMED: 03078398 (2) Ascites ICD Codes: R18.8 - Other ascites SNOMED: 861025100 (3) Esophagitis ICD Codes: K20.9 - Esophagitis, unspecified SNOMED: 84820813 (4) Nausea, vomiting, and diarrhea ICD Codes: R11.2 - Nausea with vomiting, unspecified; R19.7 - Diarrhea, unspecified SNOMED: 9913462 (5) Fever ICD Codes: R50.9 - Fever, unspecified SNOMED: 136014450 (6) Small bowel obstruction ICD Codes: K56.609 - Unspecified intestinal obstruction, unspecified as to partial versus complete obstruction SNOMED: 462431541 (7) History of abdominal surgery ICD Codes: Z98.890 - Other specified postprocedural states SNOMED: 058230908, 331589405 Assessment/Plan: SBO has resolved on diet per surg fu SBFT>>> neg fu surg recs hepatitis panel ppi EGD when more stable now on COVET 19 isolation Subjective Allergies: Coded Allergies: CHLORPROMAZINE (Unverified Allergy, Unknown, 11/14/19) Objective Last 24 Hour Vital Signs Date Time Temp Pulse Resp B/P (MAP) Pulse Ox O2 Delivery O2 Flow Rate FiO2 11/20/19 04:00 Room Air 11/20/19 04:00 52 11/20/19 04:00 97.9 51 20 119/48 (71) 96 11/20/19 00:00 53 11/20/19 00:00 98.1 57 18 121/70 (87) 96 11/20/19 00:00 Room Air 11/19/19 20:00 60 11/19/19 20:00 Room Air 11/19/19 20:00 98.2 58 20 108/51 (70) 95 11/19/19 16:00 98.5 62 19 108/51 (70) 94 11/19/19 16:00 Room Air 11/19/19 15:54 57 11/19/19 12:00 98.2 59 19 110/47 (68) 96 11/19/19 12:00 Room Air 11/19/19 11:48 55 11/19/19 08:07 63 11/19/19 08:00 Room Air 11/19/19 08:00 98.1 72 19 120/71 (87) 95 Intake and Output 11/19/19 11/20/19 19:00 07:00 Intake Total 995 ml 1327.5 ml Balance 995 ml 1327.5 ml Intake Oral 240 ml 240 ml IV Total 755 ml 1087.5 ml # Voids 3 3 # Bowel Movements 2 1 Laboratory Tests 11/19/19 10:20: Sodium Level 137, Potassium Level 3.6, Chloride Level 101, Carbon Dioxide Level 24, Anion Gap 12, Blood Urea Nitrogen 14, Creatinine 0.6, Estimat Glomerular Filtration Rate > 60, Glucose Level 112H, Calcium Level 9.0, Total Bilirubin 0.4 , Aspartate Amino Transf (AST/SGOT) 25, Alanine Aminotransferase (ALT/SGPT) 32, Alkaline Phosphatase 82, Total Protein 7.0, Albumin 2.9L, Globulin 4.1, Albumin/ Globulin Ratio 0.7L Height (Feet): 5 Height (Inches): 9.00 Weight (Pounds): 191 General Appearance: no apparent distress EENT: normal ENT inspection Neck: supple Cardiovascular: normal rate Respiratory/Chest: decreased breath sounds Abdomen: soft Extremities: non-tender Dain Jules MD Nov 20, 2019 08:01
[2019-11-20] MEDS: Heparin 5000 units/ml inj SUBQ SCH (09:00)
--- NOTE | 2019-11-20 09:00 | NUR ---
NURSE NOTES: Patient tolerated breakfast meal. No cough noted. Patient denies shortness of breath.
[2019-11-20 09:23] LABS: BASOPHILS % (AUTO) 0.8 % (0.0-2.0); EOSINOPHILS % (AUTO) 4.1 % (0.0-3.0); HEMATOCRIT 35.4 % (42.0-52.0); HEMOGLOBIN 12.6 G/DL (14.2-18.0); LYMPHOCYTES % (AUTO) 18.8 % (20.0-45.0); MEAN CORPUSCULAR VOLUME 88 FL (80-99); MONOCYTES % (AUTO) 13.1 % (1.0-10.0); NEUTROPHILS % (AUTO) 63.2 % (45.0-75.0); PLATELET COUNT 157 K/UL (150-450); RED BLOOD COUNT 4.02 M/UL (4.70-6.10); RED CELL DISTRIBUTION WIDTH 11.5 % (11.6-14.8); WHITE BLOOD COUNT 6.1 K/UL (4.8-10.8)
[2019-11-20 09:41] LABS: ALANINE AMINOTRANSFERASE 22 U/L (12-78); ALBUMIN 2.7 G/DL (3.4-5.0); ALBUMIN/GLOBULIN RATIO 0.7 (1.0-2.7); ALKALINE PHOSPHATASE 72 U/L (46-116); ANION GAP 6 mmol/L (5-15); ASPARTATE AMINO TRANSFERASE 19 U/L (15-37); BILIRUBIN,TOTAL 0.4 MG/DL (0.2-1.0); BLOOD UREA NITROGEN 10 mg/dL (7-18); CALCIUM 8.9 MG/DL (8.5-10.1); CARBON DIOXIDE 29 MMOL/L (21-32); CHLORIDE 99 MMOL/L (98-107); CREATININE 0.6 MG/DL (0.55-1.30); POTASSIUM 3.9 MMOL/L (3.5-5.1); SODIUM 134 MMOL/L (136-145)
[2019-11-20] MEDS: Pantoprazole Inj IV SCH (10:07)
--- NOTE | 2019-11-20 11:00 | NUR ---
NURSE NOTES: Bedbath provided by 2 staff. Assisted patient to commode, patient able to ambulate from bed to commode. Bedlinen changed. 1 bowel movement noted.
--- NOTE | 2019-11-20 11:08 | Surgery Progress Note ---
Surgery Progress Note Subjective Symptoms: improved, pain absent, tolerating diet, voiding well, passing flatus , BM Objective Last 24 Hour Vital Signs Date Time Temp Pulse Resp B/P (MAP) Pulse Ox O2 Delivery O2 Flow Rate FiO2 11/20/19 08:00 97.2 53 20 121/59 (79) 96 11/20/19 04:00 Room Air 11/20/19 04:00 52 11/20/19 04:00 97.9 51 20 119/48 (71) 96 11/20/19 00:00 53 11/20/19 00:00 98.1 57 18 121/70 (87) 96 11/20/19 00:00 Room Air 11/19/19 20:00 60 11/19/19 20:00 Room Air 11/19/19 20:00 98.2 58 20 108/51 (70) 95 11/19/19 16:00 98.5 62 19 108/51 (70) 94 11/19/19 16:00 Room Air 11/19/19 15:54 57 11/19/19 12:00 98.2 59 19 110/47 (68) 96 11/19/19 12:00 Room Air 11/19/19 11:48 55 I&O Intake and Output 11/19/19 11/20/19 19:00 07:00 Intake Total 995 ml 1327.5 ml Balance 995 ml 1327.5 ml Intake Oral 240 ml 240 ml IV Total 755 ml 1087.5 ml # Voids 3 3 # Bowel Movements 2 1 Cardiovascular: RSR Respiratory: clear Abdomen: soft, non-tender, present bowel sounds Extremities: no edema, no tenderness, no cyanosis Laboratory Tests Test 11/20/19 09:00 White Blood Count 6.1 K/UL (4.8-10.8) Red Blood Count 4.02 M/UL (4.70-6.10) L Hemoglobin 12.6 G/DL (14.2-18.0) L Hematocrit 35.4 % (42.0-52.0) L Mean Corpuscular Volume 88 FL (80-99) # Mean Corpuscular Hemoglobin 31.2 PG (27.0-31.0) H Mean Corpuscular Hemoglobin Concent 35.4 G/DL (32.0-36.0) Red Cell Distribution Width 11.5 % (11.6-14.8) L Platelet Count 157 K/UL (150-450) Mean Platelet Volume 6.5 FL (6.5-10.1) Neutrophils (%) (Auto) 63.2 % (45.0-75.0) Lymphocytes (%) (Auto) 18.8 % (20.0-45.0) L Monocytes (%) (Auto) 13.1 % (1.0-10.0) H Eosinophils (%) (Auto) 4.1 % (0.0-3.0) H Basophils (%) (Auto) 0.8 % (0.0-2.0) Sodium Level 134 MMOL/L (136-145) L Potassium Level 3.9 MMOL/L (3.5-5.1) Chloride Level 99 MMOL/L (98-107) Carbon Dioxide Level 29 MMOL/L (21-32) Anion Gap 6 mmol/L (5-15) Blood Urea Nitrogen 10 mg/dL (7-18) Creatinine 0.6 MG/DL (0.55-1.30) Estimat Glomerular Filtration Rate > 60 mL/min (>60) Glucose Level 126 MG/DL (74-106) H Calcium Level 8.9 MG/DL (8.5-10.1) Total Bilirubin 0.4 MG/DL (0.2-1.0) Aspartate Amino Transf (AST/SGOT) 19 U/L (15-37) Alanine Aminotransferase (ALT/SGPT) 22 U/L (12-78) Alkaline Phosphatase 72 U/L (46-116) Total Protein 6.6 G/DL (6.4-8.2) Albumin 2.7 G/DL (3.4-5.0) L Globulin 3.9 g/dL Albumin/Globulin Ratio 0.7 (1.0-2.7) L Plan Problems: (1) Small bowel obstruction Assessment & Plan: SBO likely from adhesions as large prior midline midline large incisional ventral hernia reducible no n/v/f/c currently no flatus yet no bowel function returned yet ng in place. bilious gastric output non tender abd with decrease bowel sounds will attempt non operative management. if improves and returns bowel function with bowel reset and decompression npo iv fluids ng tube to low intermittent suction serial abd exam if not improved soon will need to explore discussed with patient in length at bedside thank you will follow with recs kub noted still dilated bowel but abd exam stable cont with conservative management npo, ng tube will follow plan for gi contrast study today if contrast without obstruction d/c ng tube and start diet resolved bowel study okay tolerating diet +BM d/c planning Prominence of the wall of the distal esophagus may represent esophagitis. Stomach is distended with ingested material, fluid, and gas. Dilated fluid and gas-filled small bowel loops with transition point in the right mid abdomen, concerning for small bowel obstruction. Small amount of ascites. Normal appendix. No hydronephrosis or obstructing stone. Fluid within a right inguinal hernia. Fat within a left inguinal hernia. Atherosclerotic changes of the vasculature. No aortic aneurysm or dissection. Mild prominence of the bladder wall is likely secondary to under distention. Please correlate with urinalysis if concerned for cystitis. Alonso Ivan Nov 20, 2019 11:08
--- NOTE | 2019-11-20 11:46 | Pulmonology Progress Note ---
Assessment/Plan Problems: (1) Small bowel obstruction (2) Nausea, vomiting, and diarrhea (3) History of abdominal surgery Assessment/Plan Vazquez virus negative eating well, had BM last night f/u by surgery improving symptomatic treatment dvt prophylaxis. Subjective ROS Limited/Unobtainable: No Constitutional: Reports: no symptoms HEENT: Repors: no symptoms Respiratory: Reports: no symptoms Allergies: Coded Allergies: CHLORPROMAZINE (Unverified Allergy, Unknown, 11/14/19) Objective Last 24 Hour Vital Signs Date Time Temp Pulse Resp B/P (MAP) Pulse Ox O2 Delivery O2 Flow Rate FiO2 11/20/19 08:00 97.2 53 20 121/59 (79) 96 11/20/19 07:26 50 11/20/19 04:00 Room Air 11/20/19 04:00 52 11/20/19 04:00 97.9 51 20 119/48 (71) 96 11/20/19 00:00 53 11/20/19 00:00 98.1 57 18 121/70 (87) 96 11/20/19 00:00 Room Air 11/19/19 20:00 60 11/19/19 20:00 Room Air 11/19/19 20:00 98.2 58 20 108/51 (70) 95 11/19/19 16:00 98.5 62 19 108/51 (70) 94 11/19/19 16:00 Room Air 11/19/19 15:54 57 11/19/19 12:00 98.2 59 19 110/47 (68) 96 11/19/19 12:00 Room Air 11/19/19 11:48 55 Intake and Output 11/19/19 11/20/19 18:59 06:59 Intake Total 986.25 ml 1227.5 ml Balance 986.25 ml 1227.5 ml Intake Oral 240 ml 240 ml IV Total 746.25 ml 987.5 ml # Voids 3 3 # Bowel Movements 2 1 Objective General Appearance: WD/WN HEENT: normocephalic Respiratory/Chest: chest wall non-tender, lungs clear Cardiovascular: normal rate, regular rhythm Abdomen: normal bowel sounds, no organomegaly Extremities: no cyanosis Skin: no ulcers 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 Resulted 11/18/19 17:00 Nasopharynx Coronavirus COVID-19 PCR ([facility]) - Final Complete 11/18/19 13:30 Nasal Nares - Final Complete 11/18/19 13:30 Nasal Nares - Final Complete Laboratory Tests 11/20/19 09:00: White Blood Count 6.1, Red Blood Count 4.02L, Hemoglobin 12.6L, Hematocrit 35.4L , Mean Corpuscular Volume 88#, Mean Corpuscular Hemoglobin 31.2H, Mean Corpuscular Hemoglobin Concent 35.4, Red Cell Distribution Width 11.5L, Platelet Count 157, Mean Platelet Volume 6.5, Neutrophils (%) (Auto) 63.2, Lymphocytes (%) (Auto) 18.8L, Monocytes (%) (Auto) 13.1H, Eosinophils (%) (Auto ) 4.1H, Basophils (%) (Auto) 0.8, Sodium Level 134L, Potassium Level 3.9, Chloride Level 99, Carbon Dioxide Level 29, Anion Gap 6, Blood Urea Nitrogen 10 , Creatinine 0.6, Estimat Glomerular Filtration Rate > 60, Glucose Level 126H, Calcium Level 8.9, Total Bilirubin 0.4, Aspartate Amino Transf (AST/SGOT) 19, Alanine Aminotransferase (ALT/SGPT) 22, Alkaline Phosphatase 72, Total Protein 6.6, Albumin 2.7L, Globulin 3.9, Albumin/Globulin Ratio 0.7L Current Medications Medications (Trade) Dose Ordered Sig/Hortensia Route PRN Reason Start Time Stop Time Status Last Admin Dose Admin Acetaminophen (Tylenol) 650 mg Q4H PRN ORAL fever 11/18/19 19:59 12/14/19 19:58 Ceftriaxone Sodium 1 gm/ Dextrose 55 ml @ 110 mls/hr Q24H IVPB 11/19/19 14:00 11/26/19 13:59 11/19/19 14:06 Dextrose (Dextrose 50%) 25 ml Q30M PRN IV Hypoglycemia 11/18/19 20:00 02/12/20 21:59 Dextrose (Dextrose 50%) 50 ml Q30M PRN IV Hypoglycemia 11/18/19 20:00 02/12/20 21:59 Dextrose/Sodium Chloride 1,000 ml @ 75 mls/hr [id number] IV 11/18/19 20:00 12/14/19 19:59 11/19/19 23:10 Diphenhydramine HCl (Benadryl) 25 mg Q6H PRN ORAL Itching/Pruritis 11/18/19 20:01 12/14/19 20:00 Heparin Sodium (Porcine) (Heparin 5000 units/ml) 5,000 units EVERY 12 HOURS SUBQ 11/18/19 21:00 12/30/19 08:59 11/19/19 21:37 Metoclopramide HCl (Reglan) 10 mg EVERY 6 HOURS PRN IVP servere nauasea 11/19/19 00:00 12/14/19 21:59 Metronidazole 100 ml @ 100 mls/hr Q8HR IVPB 11/19/19 15:07 11/26/19 15:06 11/20/19 05:50 Nitroglycerin (Ntg) 0.4 mg Q5M X 3 DOSES PRN SL Prn Chest Pain 11/18/19 19:45 12/14/19 21:59 Ondansetron HCl (Zofran) 4 mg Q6H PRN IVP Nausea & Vomiting 11/18/19 22:00 12/14/19 21:59 Pantoprazole (Protonix) 40 mg DAILY IV 11/19/19 09:00 12/15/19 08:59 11/20/19 10:07 Polyethylene Glycol (Miralax) 17 gm HSPRN PRN ORAL Constipation 11/18/19 21:00 12/14/19 20:59 Temazepam (Restoril) 15 mg HSPRN PRN ORAL Insomnia 11/18/19 21:00 11/21/19 20:59 Zacarias Garcia MD Nov 20, 2019 11:46
[2019-11-20 12:00] VITALS: BP 130/62
--- NOTE | 2019-11-20 12:54 | Internal Med Progress Note ---
Subjective Date of Service: Nov 20, 2019 Physician Name Thomson,Giovani Attending Physician Ji Turcios MD Current Medications Medications (Trade) Dose Ordered Sig/Hortensia Route PRN Reason Start Time Stop Time Status Last Admin Dose Admin Acetaminophen (Tylenol) 650 mg Q4H PRN ORAL fever 11/18/19 19:59 12/14/19 19:58 Ceftriaxone Sodium 1 gm/ Dextrose 55 ml @ 110 mls/hr Q24H IVPB 11/19/19 14:00 11/26/19 13:59 11/19/19 14:06 Dextrose (Dextrose 50%) 25 ml Q30M PRN IV Hypoglycemia 11/18/19 20:00 02/12/20 21:59 Dextrose (Dextrose 50%) 50 ml Q30M PRN IV Hypoglycemia 11/18/19 20:00 02/12/20 21:59 Dextrose/Sodium Chloride 1,000 ml @ 75 mls/hr [id number] IV 11/18/19 20:00 12/14/19 19:59 11/19/19 23:10 Diphenhydramine HCl (Benadryl) 25 mg Q6H PRN ORAL Itching/Pruritis 11/18/19 20:01 12/14/19 20:00 Heparin Sodium (Porcine) (Heparin 5000 units/ml) 5,000 units EVERY 12 HOURS SUBQ 11/18/19 21:00 12/30/19 08:59 11/19/19 21:37 Metoclopramide HCl (Reglan) 10 mg EVERY 6 HOURS PRN IVP servere nauasea 11/19/19 00:00 12/14/19 21:59 Metronidazole 100 ml @ 100 mls/hr Q8HR IVPB 11/19/19 15:07 11/26/19 15:06 11/20/19 05:50 Nitroglycerin (Ntg) 0.4 mg Q5M X 3 DOSES PRN SL Prn Chest Pain 11/18/19 19:45 12/14/19 21:59 Ondansetron HCl (Zofran) 4 mg Q6H PRN IVP Nausea & Vomiting 11/18/19 22:00 12/14/19 21:59 Pantoprazole (Protonix) 40 mg DAILY IV 11/19/19 09:00 12/15/19 08:59 11/20/19 10:07 Polyethylene Glycol (Miralax) 17 gm HSPRN PRN ORAL Constipation 11/18/19 21:00 12/14/19 20:59 Temazepam (Restoril) 15 mg HSPRN PRN ORAL Insomnia 11/18/19 21:00 11/21/19 20:59 Allergies: Coded Allergies: CHLORPROMAZINE (Unverified Allergy, Unknown, 11/14/19) ROS Limited/Unobtainable: No Constitutional: Reports: no symptoms HEENT: Reports: no symptoms Cardiovascular: Reports: no symptoms Respiratory: Reports: no symptoms Gastrointestinal/Abdominal: Reports: no symptoms Genitourinary: Reports: no symptoms Neurologic/Psychiatric: Reports: no symptoms Subjective 64 YO M admitted with abdominal pain, nausea and vomiting. Now small bowel obstruction. Cover for Int Gideon-DR Turcios. SDU Objective Last Vital Signs Date Time Temp Pulse Resp B/P (MAP) Pulse Ox O2 Delivery O2 Flow Rate FiO2 11/20/19 12:00 Room Air 11/20/19 11:30 51 11/20/19 08:00 97.2 20 121/59 (79) 96 Laboratory Tests Test 11/20/19 09:00 White Blood Count 6.1 K/UL (4.8-10.8) Red Blood Count 4.02 M/UL (4.70-6.10) L Hemoglobin 12.6 G/DL (14.2-18.0) L Hematocrit 35.4 % (42.0-52.0) L Mean Corpuscular Volume 88 FL (80-99) # Mean Corpuscular Hemoglobin 31.2 PG (27.0-31.0) H Mean Corpuscular Hemoglobin Concent 35.4 G/DL (32.0-36.0) Red Cell Distribution Width 11.5 % (11.6-14.8) L Platelet Count 157 K/UL (150-450) Mean Platelet Volume 6.5 FL (6.5-10.1) Neutrophils (%) (Auto) 63.2 % (45.0-75.0) Lymphocytes (%) (Auto) 18.8 % (20.0-45.0) L Monocytes (%) (Auto) 13.1 % (1.0-10.0) H Eosinophils (%) (Auto) 4.1 % (0.0-3.0) H Basophils (%) (Auto) 0.8 % (0.0-2.0) Sodium Level 134 MMOL/L (136-145) L Potassium Level 3.9 MMOL/L (3.5-5.1) Chloride Level 99 MMOL/L (98-107) Carbon Dioxide Level 29 MMOL/L (21-32) Anion Gap 6 mmol/L (5-15) Blood Urea Nitrogen 10 mg/dL (7-18) Creatinine 0.6 MG/DL (0.55-1.30) Estimat Glomerular Filtration Rate > 60 mL/min (>60) Glucose Level 126 MG/DL (74-106) H Calcium Level 8.9 MG/DL (8.5-10.1) Total Bilirubin 0.4 MG/DL (0.2-1.0) Aspartate Amino Transf (AST/SGOT) 19 U/L (15-37) Alanine Aminotransferase (ALT/SGPT) 22 U/L (12-78) Alkaline Phosphatase 72 U/L (46-116) Total Protein 6.6 G/DL (6.4-8.2) Albumin 2.7 G/DL (3.4-5.0) L Globulin 3.9 g/dL Albumin/Globulin Ratio 0.7 (1.0-2.7) L Microbiology Date/Time Source Procedure Growth Status 11/18/19 11:05 Blood Blood Culture - Preliminary NO GROWTH AFTER 24 HOURS Resulted 11/18/19 10:55 Blood Blood Culture - Preliminary NO GROWTH AFTER 24 HOURS Resulted 11/19/19 04:45 Sputum Expectorated Gram Stain - Final Resulted 11/19/19 04:45 Sputum Expectorated Sputum Culture - Preliminary NORMAL UPPER RESPIRATORY KIMI AT 24 ... Resulted 11/18/19 17:00 Nasopharynx Coronavirus COVID-19 PCR ([facility]) - Final Complete 11/18/19 13:30 Nasal Nares - Final Complete 11/18/19 13:30 Nasal Nares - Final Complete Intake and Output 11/19/19 11/20/19 19:00 07:00 Intake Total 995 ml 1327.5 ml Balance 995 ml 1327.5 ml Intake Oral 240 ml 240 ml IV Total 755 ml 1087.5 ml # Voids 3 3 # Bowel Movements 2 1 Objective PHYSICAL EXAMINATION: GENERAL: The patient is awake, responsive, in no acute distress. HEAD AND NECK: Pupils are equal and reactive to light. Extraocular movements intact. Neck was supple. No JVD. NG tube discontinued LUNGS: Good air entry. No wheezing or rales. HEART: S1, S2. Regular rhythm. No murmur or gallops. ABDOMEN: Soft, nondistended, mildly obese. Ventral hernia was noted in the mid abdomen area over the surgical incision scar area. EXTREMITIES: No cyanosis, clubbing, or edema. NEUROLOGIC: Cranial nerves II through XII grossly intact. Motor is 5/5 in all extremities. The patient is moving all the extremities spontaneously. RECTAL/GENITOURINARY: Refused and deferred. PSYCHIATRIC: Mood and affect are intact. Assessment/Plan Assessment/Plan ASSESSMENT: 1. Abdominal pain/small bowel obstruction. 2. Dehydration. 3. Nausea, vomiting, and diarrhea. 4. Prior history of abdominal surgery. 5. Hypertension. 6. Coronary artery disease with prior myocardial infarction. 7. History of CVA. PLAN: 1. Admit the patient to the surgical unit. 2. pulmonary consultation = Dr. Garcia as well as 3. surgical consult= Dr. Ivan. 4. 3/30 UGI with SBFT=normal; NG tube discontinued by surgery=DR Ivan 5. Clear liquid diet; IV hydration, 6. DVT prophylaxis,heparin subcutaneous. 7. Discharge home today Giovani Thomson MD Nov 20, 2019 12:54
--- NOTE | 2019-11-20 13:10 | Infectious Diseases Prog Note ---
Assessment/Plan Assessment/Plan 64yo gentleman with PMH HTN, DM, liver cirrhosis presents with abdominal pain, nausea, vomiting. Pt diagnosed with SBO on imaging. ID consulted for new onset fevers. Fever, SP SIRS likely 2/2 SBO Normal leukocyte count with lymphopenia Nausea/Vomiting, SP Cough, improving CXR: Mild pulmonary vascular congestion. Cardiac silhouette is borderline enlarged. flu swab negative MIKI CoV PCR negative sp cx: normal awais Unlikely SBP, trace ascites on US SBO 11/13 CT A/P: Small bowel obstruction with suspected transition point in the right mid abdomen. Some swirling is also noted within the mesentery and the possibility of internal hernia not excluded. Mild ascites noted. No free intraperitoneal air, pneumatosis intestinalis or portal venous gas noted at this time. Thickening of the wall the distal esophagus which may related to esophagitis. Fluid within a small right inguinal hernia. Small fat-containing left inguinal hernia. 11/15 KUB: Persistent diffuse distention of small bowel loops with maximum diameter of 3.5 cm. HTN DM Liver Cirrhosis Plan: Ceftriaxone and flagyl #3 sputum culture monitor temp and CBC monitor resp status f/u BCx DW RN Subjective Allergies: Coded Allergies: CHLORPROMAZINE (Unverified Allergy, Unknown, 11/14/19) Subjective Afebrile. RA. no leukocytosis. Pt was discharged prior to my arrival but discussed pt care in the morning with nurse Objective Vital Signs Last 24 Hour Vital Signs Date Time Temp Pulse Resp B/P (MAP) Pulse Ox O2 Delivery O2 Flow Rate FiO2 11/20/19 12:00 Room Air 11/20/19 11:30 51 11/20/19 08:00 97.2 53 20 121/59 (79) 96 11/20/19 08:00 Room Air 11/20/19 07:26 50 11/20/19 04:00 Room Air 11/20/19 04:00 52 11/20/19 04:00 97.9 51 20 119/48 (71) 96 11/20/19 00:00 53 11/20/19 00:00 98.1 57 18 121/70 (87) 96 11/20/19 00:00 Room Air 11/19/19 20:00 60 11/19/19 20:00 Room Air 11/19/19 20:00 98.2 58 20 108/51 (70) 95 11/19/19 16:00 98.5 62 19 108/51 (70) 94 11/19/19 16:00 Room Air 11/19/19 15:54 57 Height (Feet): 5 Height (Inches): 9.00 Weight (Pounds): 191 Microbiology Date/Time Source Procedure Growth Status 11/18/19 11:05 Blood Blood Culture - Preliminary NO GROWTH AFTER 24 HOURS Resulted 11/18/19 10:55 Blood Blood Culture - Preliminary NO GROWTH AFTER 24 HOURS Resulted 11/19/19 04:45 Sputum Expectorated Gram Stain - Final Resulted 11/19/19 04:45 Sputum Expectorated Sputum Culture - Preliminary NORMAL UPPER RESPIRATORY AWAIS AT 24 ... Resulted 11/18/19 17:00 Nasopharynx Coronavirus COVID-19 PCR ([facility]) - Final Complete 11/18/19 13:30 Nasal Nares - Final Complete 11/18/19 13:30 Nasal Nares - Final Complete Laboratory Tests Test 11/20/19 09:00 White Blood Count 6.1 K/UL (4.8-10.8) Red Blood Count 4.02 M/UL (4.70-6.10) L Hemoglobin 12.6 G/DL (14.2-18.0) L Hematocrit 35.4 % (42.0-52.0) L Mean Corpuscular Volume 88 FL (80-99) # Mean Corpuscular Hemoglobin 31.2 PG (27.0-31.0) H Mean Corpuscular Hemoglobin Concent 35.4 G/DL (32.0-36.0) Red Cell Distribution Width 11.5 % (11.6-14.8) L Platelet Count 157 K/UL (150-450) Mean Platelet Volume 6.5 FL (6.5-10.1) Neutrophils (%) (Auto) 63.2 % (45.0-75.0) Lymphocytes (%) (Auto) 18.8 % (20.0-45.0) L Monocytes (%) (Auto) 13.1 % (1.0-10.0) H Eosinophils (%) (Auto) 4.1 % (0.0-3.0) H Basophils (%) (Auto) 0.8 % (0.0-2.0) Sodium Level 134 MMOL/L (136-145) L Potassium Level 3.9 MMOL/L (3.5-5.1) Chloride Level 99 MMOL/L (98-107) Carbon Dioxide Level 29 MMOL/L (21-32) Anion Gap 6 mmol/L (5-15) Blood Urea Nitrogen 10 mg/dL (7-18) Creatinine 0.6 MG/DL (0.55-1.30) Estimat Glomerular Filtration Rate > 60 mL/min (>60) Glucose Level 126 MG/DL (74-106) H Calcium Level 8.9 MG/DL (8.5-10.1) Total Bilirubin 0.4 MG/DL (0.2-1.0) Aspartate Amino Transf (AST/SGOT) 19 U/L (15-37) Alanine Aminotransferase (ALT/SGPT) 22 U/L (12-78) Alkaline Phosphatase 72 U/L (46-116) Total Protein 6.6 G/DL (6.4-8.2) Albumin 2.7 G/DL (3.4-5.0) L Globulin 3.9 g/dL Albumin/Globulin Ratio 0.7 (1.0-2.7) L Current Medications Medications (Trade) Dose Ordered Sig/Hortensia Route PRN Reason Start Time Stop Time Status Last Admin Dose Admin Acetaminophen (Tylenol) 650 mg Q4H PRN ORAL fever 11/18/19 19:59 12/14/19 19:58 Ceftriaxone Sodium 1 gm/ Dextrose 55 ml @ 110 mls/hr Q24H IVPB 11/19/19 14:00 11/26/19 13:59 11/19/19 14:06 Dextrose (Dextrose 50%) 25 ml Q30M PRN IV Hypoglycemia 11/18/19 20:00 02/12/20 21:59 Dextrose (Dextrose 50%) 50 ml Q30M PRN IV Hypoglycemia 11/18/19 20:00 02/12/20 21:59 Dextrose/Sodium Chloride 1,000 ml @ 75 mls/hr [id number] IV 11/18/19 20:00 12/14/19 19:59 11/19/19 23:10 Diphenhydramine HCl (Benadryl) 25 mg Q6H PRN ORAL Itching/Pruritis 11/18/19 20:01 12/14/19 20:00 Heparin Sodium (Porcine) (Heparin 5000 units/ml) 5,000 units EVERY 12 HOURS SUBQ 11/18/19 21:00 12/30/19 08:59 11/19/19 21:37 Metoclopramide HCl (Reglan) 10 mg EVERY 6 HOURS PRN IVP servere nauasea 11/19/19 00:00 12/14/19 21:59 Metronidazole 100 ml @ 100 mls/hr Q8HR IVPB 11/19/19 15:07 11/26/19 15:06 11/20/19 05:50 Nitroglycerin (Ntg) 0.4 mg Q5M X 3 DOSES PRN SL Prn Chest Pain 11/18/19 19:45 12/14/19 21:59 Ondansetron HCl (Zofran) 4 mg Q6H PRN IVP Nausea & Vomiting 11/18/19 22:00 12/14/19 21:59 Pantoprazole (Protonix) 40 mg DAILY IV 11/19/19 09:00 12/15/19 08:59 11/20/19 10:07 Polyethylene Glycol (Miralax) 17 gm HSPRN PRN ORAL Constipation 11/18/19 21:00 12/14/19 20:59 Temazepam (Restoril) 15 mg HSPRN PRN ORAL Insomnia 11/18/19 21:00 11/21/19 20:59 Zach Moreau MD Nov 20, 2019 13:10
--- NOTE | 2019-11-20 13:13 | NUR ---
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 PER ASYA HIS VEHICLE IS NOT WORKING AND IS UNABLE TO SEND THE PT HOME. PT TO TRANSFER HOME VIA AMBULANCE. [facility] TO TRANSPORT PT WITH AN ETA OF 1345. NURSE MADE AWARE.
[2019-11-20] MEDS ORDERED: D5 1/2NS 1000ml IV ONE (14:09)
[2019-11-20] MEDS ORDERED: 1/2 NS 1000ml IV ONE (14:09)
[2019-11-20] MEDS ORDERED: Tubing IV Secondary IV ONE (14:09)
--- NOTE | 2019-11-20 14:10 | NUR ---
NURSE NOTES: Discharge patient to [facility]. Patient is stable. On room air. [facility] ambulance transported patient via gurney. Belongings reviewed. Patient remains awake, alert, oriented.
--- NOTE | 2019-11-20 14:49 | NUR ---
*-* INSURANCE *-* NO DISCHARGE SUMMARY IN THE SYSTEM UNABLE TO FAX [facility] [place] COORDINATOR: GRISELDA P: [phone] F: [phone]
--- NOTE | 2019-11-21 14:13 | NUR ---
*-* INSURANCE *-* NO DISCHARGE SUMMARY IN THE SYSTEM UNABLE TO FAX [facility] [place] COORDINATOR: GRISELDA P: [phone] F: [phone]
--- NOTE | 2019-11-21 17:50 | Discharge Summary ---
Discharge Summary Discharge Summary _ DATE OF ADMISSION: 11/14/2019 DATE OF DISCHARGE: 11/20/2019 DISCHARGED BY: Dr. Turcios REASON FOR ADMISSION: 64 years old male, with past medical history significant for hypertension, diabetes mellitus type 2, history of CVA, with right-sided weakness, dyslipidemia, coronary artery disease, myocardial infarction x5, presented to emergency department complaining of abdominal pain associated with nausea and vomiting over the past 24 hours. Pain was getting progressively worse. Patient denied fever and chills. No sore throat. No bloody emesis. Upon evaluation in the emergency room patient was afebrile. Laboratory work-up revealed no leukocytosis , stable hemoglobin , hematocrit and platelet count. Stable electrolytes and renal parameters. Glucose 114. Stable LFT. Troponin negative. Lipase within normal limits. CT of the abdomen and pelvis demonstrated small bowel obstruction with suspected transition point in the right mid abdomen. Mild ascites. Thickening of the wall of the distal esophagus possibly related to esophagitis. Atherosclerotic disease. 4 mm nodule in the right middle lobe . NG tube was placed for bowel decompression . Patient started on the IV fluids , received analgesic and admitted for further management. CONSULTANTS: pulmonary Dr. Garcia ID specialist Dr. Moreau GI specialist Dr. Jules surgery [facility] COURSE: Patient admitted to direct observational unit. Patient initially was kept n.p.o. patient started on IV hydration. NGT was placed to low intermittent suction. Non-surgical approach was attempted with decompression and bowel rest. Patient was followed up with serial KUB. Surgeon closely followed. Follow-up KUB demonstrated improvement with regard to degree of small bowel obstruction compared to the prior film. Small bowel x-ray revealed normal small bowel series. No evidence of bowel obstruction. Bowel function was improving with conservative treatment : decompression and bowel rest. NG tube was discontinued. Patient slowly started on liquid diet. NG tube was discontinued. Diet was advanced as tolerated Antiemetic were on board as needed. Pain management was addressed as needed. DVT and GI prophylaxis provided. GI specialist recommended EGD when more stable. Stool for occult blood was negative. Hepatitis panel was negative. Per ID specialist patient likely had SIRS secondary to small bowel obstruction. Patient had a normal leukocyte count with lymphopenia and prior nausea and vomiting. Patient was suspected for COVID 19 infection. Testing was done, and patient was placed on droplet and contact isolation. Stool for C. difficile came back negative. Blood cultures were negative. Influenza screen for A and B was negative. COVID 19 came back non- detected. Isolation discontinued. Sputum culture was negative. Hemoglobin and hematocrit remained stable. Supplemental oxygen provided and titrated to keep oximetry above 92%. Pulse oximetry remained stable on room air. Patient clinically stabilized and was ready for discharge to assisted living. FINAL DIAGNOSES: Small bowel obstruction -resolved Vomiting and abdominal pain due to small bowel obstruction resolved Suspected COVID 19 infection - ruled out Cirrhosis Ascites Esophagitis DISCHARGE MEDICATIONS: List of medication was sent accepting facility DISCHARGE INSTRUCTIONS: Patient was discharged to assisted living. Follow-up with a primary care provider in 1 week. I have been assigned to dictate discharge summary for this account. I was not involved in the patient's management. Nai Herrera NP Nov 21, 2019 17:50
== END 2019-11-20 14:10 | disposition home or self-care (01) | DRG 389 ==
LOC: EDBD 17:08 → EMR 17:20 → 3E 19:27 → EDBEDREQ 20:53 → 2W 11-18 14:56
DX: K56.609 Unspecified intestinal obstruction, unspecified as to partial versus complete obstruction (principal); I69.351 Hemiplegia and hemiparesis following cerebral infarction affecting right dominant side; R18.8 Other ascites; Z88.8 Allergy status to other drugs, medicaments and biological substances; I25.2 Old myocardial infarction; Z87.891 Personal history of nicotine dependence; E86.0 Dehydration; Z98.890 Other specified postprocedural states; E11.9 Type 2 diabetes mellitus without complications; K74.60 Unspecified cirrhosis of liver; K20.9 Esophagitis, unspecified; I10 Essential (primary) hypertension
CPT/HCPCS: 36415; 71045; 74018; 74177; 74250; 76700; 80053; 82150; 82270; 82962; 83605; 83690; 83735; 84100; 84484; 85025; 85610; 85651; 85730; 86140; 86705; 86709; 86710; 86803; 87040; 87070; 87205; 87324; 87340; 87635; 96361; 96374; 96375; 99285; J2405; J7030